=== PATIENT | female | born 1975 | race Caucasian/White ===

== ENCOUNTER 2017-08-19 19:50 | Emergency (ER) | payer BC, SELFPAY ==
[2017-08-19 19:51] VITALS: BP 115/75; PULSE 100; RESP 16; TEMP 37; O2SAT 100; BMI 18.3
== END 2017-08-19 20:53 | disposition left against medical advice (07) ==
LOC: ER 20:03
PROVIDERS: Emergency Provider Emergency Medicine; Family Provider Internal Medicine Adolescent Medicine; PCP Internal Medicine Adolescent Medicine
DX: Z53.29 Procedure and treatment not carried out because of patient's decision for other reasons (principal)
CPT/HCPCS: 99211; 99282

== ENCOUNTER → 2018-04-23 14:46 | Outpatient (CLI) | payer MEDICAID, SELFPAY ==
--- NOTE | 2018-04-23 14:52 | MR_ITS ---
MR lumbar spine wo con HISTORY: Multiple sclerosis, urinary incontinence, inability to flex the left knee ITS.REASON: MS ORDERING PHYSICIAN: Joaquim Bonilla MD PATIENT AGE: 43 years Comparison: None TECHNIQUE: Standard multiplanar multiecho sequences are performed without contrast. 3-D MIP and myelographic images are also rendered and reviewed. Sagittal FLAIR images are also performed FINDINGS: There is normal alignment. The spinal cord ends at the T12-L1 level. There is slight decrease in the disc spaces from T11 to L2 with some minimal endplate irregularity. L2-L3: Unremarkable. L3-L4: Unremarkable. L4-L5: Minimal bulging disc with mild facet and ligamentum flavum hypertrophy with mild bilateral foraminal narrowing. L5-S1: Unremarkable. The cauda equina has an unremarkable appearance. No demyelinating plaques evident at the cauda equina. Incidental note made of a 2 cm right renal cyst. IMPRESSION: 1. Minimal bulging disc at L4-5 with mild facet and ligamentum flavum hypertrophy with mild bilateral foraminal narrowing. 2. Minimal degenerative changes lower thoracic spine. 3. Otherwise negative MRI of the lumbar spine
--- NOTE | 2018-04-23 14:52 | MR_ITS ---
MR head/brain wo con HISTORY: Multiple sclerosis, headache and dizziness ITS.REASON: MS ORDERING PHYSICIAN: Joaquim Bonilla MD PATIENT AGE: 43 years Comparison: 10/23/2014 TECHNIQUE: Standard multiplanar multiecho sequences are performed without contrast. FINDINGS: No midline shift, mass effect, intracranial hemorrhage, or hydrocephalus is evident. The cerebellopontine angles, cerebellum, and brainstem are unremarkable. No evidence of acute infarction. There is mild generalized atrophy and mild prominence of the ventricles which may be due to underlying volume loss. There are numerous periventricular and subcortical T2 white matter hyperintensities. History is given of multiple sclerosis which could certainly cause this finding. 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 There are some scattered T2 white matter hyperintensities within the basal ganglia. The T2 white matter hyperintensities did NOT demonstrate any restricted diffusion. There are some scattered areas of increased periventricular signal on the diffusion weighted images but is felt to represent T2 shine through not demonstrating hypointensity on the ADC images. The pituitary and optic chiasm are unremarkable. No mastoid effusion or sinus air-fluid level. IMPRESSION: 1. There is mild diffuse atrophy with ventriculomegaly consistent with the underlying volume loss. 2. Extensive periventricular and subcortical T2 white matter hyperintensities in keeping with patient's history of multiple sclerosis. The differential diagnosis would include extensive ischemic gliotic change from microvascular disease. There are T2 hyperintensities within the basal ganglia which could be due to ischemic gliotic changes well. 3. Severe thinning of the corpus callosum
--- NOTE | 2018-04-23 14:52 | MR_ITS ---
MR cervical spine wo con, MR 3-d myelogram/MRCP HISTORY: Multiple sclerosis, lower extremity issues, urinary incontinence ORDERING PHYSICIAN: Joaquim Bonilla MD PATIENT AGE: 43 years Comparison: None TECHNIQUE: Standard multiplanar multiecho sequences are performed without contrast. 3-D MIP and myelographic images are also rendered and reviewed sagittal FLAIR images were also performed FINDINGS: There is mild degree of motion artifact which does somewhat obscure fine detail. There was a question of some increase T2 signal within the spinal cord on the STIR images. The patient was asked to come back for additional imaging. FLAIR images were performed at that time and show unremarkable signal intensity of the cervical cord. The FLAIR images are more sensitive for demyelinating plaques. There is normal alignment. The craniocervical junction has an unremarkable appearance. C2-C3, C3-C4, C4-C5, have an unremarkable appearance. C5-C6: Minimal central disc protrusion versus averaging from prominent posterior longitudinal ligament. No mass effect or impingement. No evidence of canal stenosis. C6-C7: Small spur broad-based central disc protrusion without impingement. C7-T1: Unremarkable. IMPRESSION: 1. Small central disc protrusion at C6-C7 without impingement. 2. Otherwise negative MRI of the cervical spine. 3. No demyelinating plaques apparent
== END ==
PROVIDERS: Family Provider Internal Medicine Adolescent Medicine; PCP Internal Medicine Adolescent Medicine; Visit Provider Internal Medicine Adolescent Medicine
DX: G35 Multiple sclerosis (principal); G43.009 Migraine without aura, not intractable, without status migrainosus
CPT/HCPCS: 70551; 72141; 72148; 76376

== ENCOUNTER → 2018-04-26 13:50 | Outpatient (CLI) | payer MEDICAID, SELFPAY | PROVIDERS: Family Provider Internal Medicine Adolescent Medicine; PCP Internal Medicine Adolescent Medicine; Visit Provider Internal Medicine Adolescent Medicine | DX: G35 Multiple sclerosis (principal) ==

== ENCOUNTER → 2018-09-27 13:37 | Outpatient (CLI) | payer MEDICAID, SELFPAY ==
[2018-09-27 14:17] LABS: Basophils % 0.4 % (0.1-2.0); Eosinophils # 0.2 K/mm3 (0.0-0.4); Eosinophils % 2.3 % (0.1-12.0); Hematocrit 43.4 % (37.0-47.0); Hemoglobin 14.2 g/dL (12.2-16.2); Lymphocytes # 2.7 K/mm3 (0.7-4.5); Lymphocytes % 32.2 % (10-50); Mean Corpuscular HGB Conc 32.6 g/dL (31.8-35.4); Mean Corpuscular Hemoglobin 30.7 pg (27.0-31.2); Mean Corpuscular Volume 94.2 fl (81-99); Mean Platelet Volume 6.6 fl (7.4-10.4); Monocytes # 0.3 K/mm3 (0.1-1.0); Monocytes % 3.5 % (1.7-9.3); Neutrophils # 5.2 K/mm3 (1.8-7.8); Neutrophils % 61.6 % (37.0-80.0); Platelet Count 320 K/mm3 (142-424); Red Blood Count 4.61 M/mm3 (4.20-5.40); Red Cell Distribution Width 12.8 % (11.5-17.5); White Blood Count 8.4 K/mm3 (4.8-10.8)
[2018-09-27 14:50] LABS: Alanine Aminotransferase 20 U/L (12-78); Albumin/Globulin Ratio 1.2 (1.1-1.8); Alkaline Phosphatase 80 U/L (46-116); Anion Gap 12.3 mEq/L (5-15); Aspartate Amino Transferase 8 U/L (15-37); Bilirubin,Total 0.4 mg/dL (0.2-1.0); Blood Urea Nitrogen 9 mg/dL (7-18); Calcium 9.4 mg/dL (8.5-10.1); Carbon Dioxide 29 mmol/L (21.0-32.0); Chloride 105 mmol/L (98-107); Creatinine,Serum 0.59 mg/dL (0.55-1.02); Estimated Glomerular Filt Rate 112 ml/min (>60); GFR (African American) 136 ML/MIN (>60); Globulin 3.4 gm/dl (1.3-3.2); Glucose 91 mg/dL (74-106); Potassium 4.3 mmoL/L (3.5-5.1); Sodium 142 mmol/L (136-145); Thyroid Stimulating Hormone 0.44 uIU/ml (0.358-3.740); Total Protein,Serum 7.4 gm/dL (6.4-8.2)
== END ==
PROVIDERS: Visit Provider Specialist
DX: G35 Multiple sclerosis (principal)
CPT/HCPCS: 36415; 80053; 84443; 85025

== ENCOUNTER → 2018-10-10 13:14 | Outpatient (CLI) | payer MEDICAID, SELFPAY ==
--- NOTE | 2018-10-10 13:16 | MR_ITS ---
MR thoracic spine wo con Ordering Physician: Nereida Zhang MD Patient Age: 43 years: Female HISTORY: ITS.REASON: multiple sclerosis, headache HISTORY of MS low back pain thoracic pain left side. Headache left leg weakness. TECHNIQUE: Sagittal T1, T2 and STIR entire thoracic spine.. Axial T1 and T2 imaging through portions of the T-spine COMPARISON :MRI lumbar spine April 2018 FINDINGS The more sensitive STIR images performed but show no discrete lesions within the thoracic cord. Thoracic cord is modest volume but but normal size overall with no lesions evident on these images. Generous volume thoracic osseous spinal canal The thoracic vertebral bodies are intact and disc spaces are overall well-maintained. No disc protrusion. No remarkable spondylosis. The neural foramen widely patent bilaterally. No paraspinal mass. Aorta normal caliber Limited axial views Upper abdomen reveal a similar to previous April 2018 MR lumbar spine a 2.2 cm cystprobable 2 cm left ovarian cyst here pelvis on the initial overview associate professor of engineering image Also note Probable 2 cm left ovarian cyst ( Less likely bladder diverticulum) here pelvis basin on the initial overview associate professor of engineering image IMPRESSION: 1.. Thoracic spine and thoracic cord appears intact, within normal limits. No significant findings thoracic spine. 2.. Incidental observations include: ... A 2.2 cm right renal cyst ... Probable 2 cm left ovarian cyst here pelvis on the initial overview associate professor of engineering image
== END ==
PROVIDERS: PCP Internal Medicine Adolescent Medicine; Visit Provider Specialist
DX: G35 Multiple sclerosis (principal); M54.2 Cervicalgia; R51 Headache
CPT/HCPCS: 72146

== ENCOUNTER 2019-03-26 09:00 | Outpatient (CLI) | payer MEDICAID, SELFPAY ==
[2019-03-26 09:00] VITALS: BP 107/70; PULSE 64; RESP 20; O2SAT 97
== END 2019-03-26 09:17 | disposition home or self-care (01) ==
LOC: INF 09:32
PROVIDERS: Visit Provider Emergency Medicine
DX: G35 Multiple sclerosis (principal)
CPT/HCPCS: 96374

== ENCOUNTER 2019-03-27 09:55 | Outpatient (CLI) | payer MEDICAID, SELFPAY ==
[2019-03-27 10:10] VITALS: BP 104/68; PULSE 69; RESP 18; O2SAT 97
== END 2019-03-27 10:25 | disposition home or self-care (01) ==
LOC: INF 09:57
PROVIDERS: Visit Provider Emergency Medicine
DX: G35 Multiple sclerosis (principal)
CPT/HCPCS: 96374

== ENCOUNTER → 2019-04-15 15:35 | Outpatient (CLI) | payer MEDICAID, SELFPAY ==
--- NOTE | 2019-04-15 15:39 | MM_ITS ---
PROCEDURE: MM DIG SCREENING MAMM BI W/CAD CLINICAL INDICATION: SCREENING There is a history of breast cancer in the patient's paternal grandmother. COMPARISON: DMDBAV DIG MAMM-DX NAVA W ADD VIEWS from 03/20/2016 TECHNIQUE: Standard CC and MLO images were obtained. R2 CAD reviewed. FINDINGS: Prominent somewhat heterogenic fibroglandular densities are seen in both breasts. There is no suspicious lesion in either breast and no suspicious microcalcifications. IMPRESSION: Moderately dense heterogenic parenchymal pattern with no suspicious lesions seen BI-RAD Category: 1 Negative FOLLOW-UP: 1YR 1 Year Follow-up (A letter has been sent to the patient regarding results of the study.) Dictated by: Dr. Romario Whiting MD 04/20/2019 10:[address] Romario Whiting MD in [place] 04/20/2019 10:53
== END ==
PROVIDERS: PCP Internal Medicine Adolescent Medicine; Visit Provider Internal Medicine Adolescent Medicine
DX: Z12.31 Encounter for screening mammogram for malignant neoplasm of breast (principal)
CPT/HCPCS: 77067

== ENCOUNTER 2020-01-19 15:55 | Emergency (ER) | payer MEDICAID, SELFPAY ==
--- NOTE | 2020-01-19 16:17 | HMH.EDUTC ---
[facility] [place] Disposition Clinical Impression: Multiple sclerosis UTI (urinary tract infection) Qualifiers: Urinary tract infection type: site unspecified Hematuria presence: with hematuria Qualified Code(s): N39.0 - Urinary tract infection, site not specified Disposition: Home, Self-Care Condition on Discharge: Good Instructions: Urinary Tract Infection Additional Instructions: Drink plenty of fluids. Take tylenol or ibuprofen for pain or fever. Take the medications as directed. Follow up with your regular doctor. GO TO THE ER FOR ANY WORSENING SYMPTOMS Prescriptions: Sulfamethoxazole/Trimethoprim [Bactrim DS tablet] 1 each PO BID 7 Days #14 tab Transmission Status: Received by [facility] Referrals: Tai Fragoso MD [Primary Care Provider] - Time of Disposition: 16:41 Medical Decision Making - Medical Records Medical records reviewed: No: I reviewed the patient's medical records. - Arpan Inquiry Pt receiving controlled substance: No Vital Signs: 01/19/20 16:19 01/19/20 16:43 Temperature 97.7 F 97.7 F Temperature Source Oral Pulse Rate 79 Pulse Rate [Right Brachial] 79 Respiratory Rate 21 21 Blood Pressure 115/71 Blood Pressure [Right Arm] 115/71 Blood Pressure Mean [Right Arm] 85 Blood Pressure Source [Right Arm] Automatic Cuff Blood Pressure Position [Right Arm] Sitting 02 Sat by Pulse Oximetry 98 Oxygen Delivery Method Room Air - Lab Data Lab results reviewed: Yes: I reviewed the patient's lab results. Lab Results 01/19/20 16:23: Urine Color Yellow, Urine Appearance Cloudy, Urine pH 7.0, Ur Specific [place] 1.020, Urine Protein Negative, Urine Glucose (UA) Negative, Urine Ketones Negative, Urine Blood Trace, Urine Nitrate Negative, Urine Bilirubin Negative, Urine Urobilinogen 1, Ur Leukocyte Esterase Trace Orders (Tests/Meds): ED MEDICATIONS Discontinued Medications Generic Name Dose Route Start Last Admin Trade Name Freq PRN Reason Stop Dose Admin Ceftriaxone Sodium 1 gm 01/19/20 16:28 01/19/20 16:40 Rocephin 1gm Vial IM 01/19/20 16:29 1 gm ONCE ONE Administration Protocol Lidocaine HCl 0 ml 01/19/20 16:28 01/19/20 16:40 Lidocaine 1% 10ml Mdv IM 01/19/20 16:29 2.1 ml ONCE ONE Administration ORDERS Category Date Time Status Urine Culture Stat Micro 01/19/20 16:05 Received [facility] [place] HPI - General Stated complaint: Strong smelling urine Time Seen by Provider: 01/19/20 16:21 - History of Present Illness Provider Complaint: She has a history of MS and she has trouble emptying her bladder. Over the past 1 day, she has noted that her urine has been getting darker and it has a foul odor. In the past, she has became septic for a UTI and had to be transferred from this hospital to . She denies any fever or chills. She denies any back pain. Her main symptoms is that her urine is dark and foul smelling. - Related Data Home Medications Medication Instructions Recorded Confirmed Glatiramer Acetate 40 mg SQ .COMPLEX 03/27/19 01/19/20 Previous Rx's Medication Instructions Recorded Sulfamethoxazole/Trimethoprim 1 each PO BID 7 Days #14 tab 01/19/20 [Bactrim DS tablet] Allergies Allergy/AdvReac Type Severity Reaction Status Date / Time calcium [CALCIUM] Allergy Unknown Verified 10/22/19 13:32 latex [LATEX] Allergy Unknown Verified 10/22/19 13:32 [facility] History - Hepatitis A Screen Attestation statement:: This patient has been screened for Hepatitis A risk factors. I have reviewed the patient's past medical history: Yes Medical History: Reports:: Migraine Denies:: Cancer, Diabetes Mellitus Type 1, Diabetes Mellitus Type 2, MRSA, Seizures Other Medical History: Reports: Other Comment: Multiple Sclerosis- dx 2002 Other Surgeries: Yes: , Hysterectomy-Partial, Other Amputation: No Fractures: No - Social History Smoking Status: Current every day smoker Tobacco Type: cigarettes #
[2020-01-19 16:19] VITALS: BP 115/71; PULSE 79; RESP 21; TEMP 36.5; O2SAT 98; BMI 21.1
[2020-01-19 16:25] LABS: Apearance,Urine Cloudy (Clear); Bilirubin,Urine Negative (Negative); Blood, Urine Trace (Negative); Color,Urine Yellow (Yellow); Glucose,Urine (UA) Negative (Negative); Ketones,Urine Negative (Negative); Protein,Urine Negative (Negative)
[2020-01-19 16:26] LABS: UTC Leukocyte Esterase,Urine Trace (Negative); UTC Nitrate,Urine Negative (Negative); Urobilinogen,Urine 1 EU/dl (0.2)
[2020-01-19 16:43] VITALS: BP 115/71; PULSE 79; RESP 21; TEMP 36.5; O2SAT 98
== END 2020-01-19 16:49 | disposition home or self-care (01) ==
PROVIDERS: Emergency Provider Nurse Practitioner Family; PCP Internal Medicine Adolescent Medicine
DX: G35 Multiple sclerosis (principal); N39.0 Urinary tract infection, site not specified; G43.709 Chronic migraine without aura, not intractable, without status migrainosus; F17.210 Nicotine dependence, cigarettes, uncomplicated; Z90.79 Acquired absence of other genital organ(s); Z91.040 Latex allergy status
CPT/HCPCS: 81003; 87086; 87088; 87186; 96372; 99202

== ENCOUNTER → 2020-02-09 12:51 | Outpatient (CLI) | payer MEDICAID, SELFPAY ==
[2020-02-09 14:33] LABS: Alanine Aminotransferase 16 U/L (12-78); Albumin Level 4.3 g/dl (3.5-5.0); Albumin/Globulin Ratio 1.3 (1.1-1.8); Alkaline Phosphatase 88 U/L (38-126); Anion Gap 10.2 mEq/L (5-15); Aspartate Amino Transferase 27 U/L (14-36); Bilirubin,Total 0.4 mg/dl (0.2-1.3); Blood Urea Nitrogen 14 mg/dl (7-17); Calcium 9.4 mg/dl (8.4-10.2); Carbon Dioxide 29 mmol/L (22.0-30.0); Chloride 102 mmol/L (98-107); Estimated Glomerular Filt Rate 109 ml/min (>60); GFR (African American) 132 ML/MIN (>60); Globulin 3.2 g/dL (1.3-3.2); Glucose 87 mg/dl (74-100); Potassium 4.2 mmoL/L (3.5-5.1); Sodium 137 mmol/L (136-145); Total Protein,Serum 7.5 g/dl (6.3-8.2)
== END ==
PROVIDERS: Visit Provider Psychiatry & Neurology Neurology
DX: G35 Multiple sclerosis (principal)
CPT/HCPCS: 36415; 80053

== ENCOUNTER → 2020-03-24 09:09 | Outpatient (CLI) | payer MEDICAID, SELFPAY ==
--- NOTE | 2020-03-24 09:12 | MR_ITS ---
PROCEDURE: MR CERVICAL SPINE WO/W CON CLINICAL INDICATION: MULTIPLE SCLEROSIS Follow-up multiple sclerosis. LT SIDED NECK PAIN. LT ARM PAIN, NUMBNESS, AND TINGLING. [id number]. NO INJURY. COMPARISON: MR SPCERVWO MR cervical spine wo con from 04/23/2018 TECHNIQUE: Standard multiplanar multiecho sequences are performed without contrast. 3-D MIP and myelographic images are also rendered and reviewed FINDINGS: There is normal alignment. The craniocervical junction has an unremarkable appearance. There is reversal of the cervical lordosis at the C6-C7 level. C2-C3: Unremarkable. C3-C4: Unremarkable. C4-C5: Unremarkable. C5-C6: Minimal central disc protrusion versus mildly prominent posterior longitudinal ligament. C6-C7: There is degenerative disc disease with a medium-sized central disc protrusion/herniation with some minimal extrusion both superiorly and inferiorly. This is causing moderate compression upon the central aspect of the cord with canal stenosis. This is very slightly eccentric toward the right and has developed since the previous exam C7-T1: Unremarkable. The spinal cord itself has unremarkable signal intensity with no enhancing lesions apparent. There is some enhancement around the herniated disc consistent with some underlying inflammatory changes. This is best demonstrated on the sagittal post enhanced images. IMPRESSION: Medium-sized central disc herniation at C6-C7 very slightly eccentric toward the right causing moderate compression upon the central aspect of the cord with reversal of the cervical lordosis Minimal central disc protrusion at C5-C6 versus prominent posterior longitudinal ligament without impingement. Dictated by: Angel Meza MD 03/25/2020 12:13 Angel Meza MD in [place] 03/25/2020 12:13
--- NOTE | 2020-03-24 09:12 | MR_ITS ---
PROCEDURE: MR HEAD/BRAIN WO/W CON CLINICAL INDICATION: MULTIPLE SCLEROSIS, follow-up multiple sclerosis COMPARISON: MR BRAINWO MR head/brain wo con from 04/23/2018 MR MR CERVICAL SPINE WO/W CON from 03/24/2020 TECHNIQUE: Routine multiplanar multi echo sequences are performed without and with gadolinium enhancement.F/U MS. 10ML PROHANCE GIVEN. LOT: [id number] EXP: JAN 2022. PRIOR MR 04-23-18 FINDINGS: There is generalized atrophy. There is mild ventriculomegaly consistent with ex vacuo dilatation. There is diffuse periventricular and subcortical T2 white matter hyperintensities noted. For the most part this is not significantly changed. There is some increase in the white matter signal intensity in the medial aspect of the right temporal lobe in the subependymal region best detected on series 6, image 13. There is no evidence of acute infarction. No enhancing lesions are evident. The cerebellopontine angles cerebellum and mid brain have an unremarkable appearance. The pituitary and optic chiasm and craniocervical junction have an unremarkable appearance. There is marked thinning of the corpus callosum similar to the previous exam. No mastoid effusion or sinus air-fluid level. IMPRESSION: 1. Diffuse atrophy with ventriculomegaly not significantly changed. 2. Extensive periventricular and subcortical T2 white matter hyperintense lesions in keeping with patient's history of multiple sclerosis. One area is slightly more prominent compared to the previous exam along the medial aspect of the right temporal lobe in the perisylvian region. This area does not enhance. Severe periventricular ischemic gliotic change is included in the differential diagnosis. Dictated by: Angel Meza MD 03/30/2020 18:21 Angel Meza MD in [place] 03/30/2020 18:21
== END ==
PROVIDERS: PCP Internal Medicine Adolescent Medicine; Visit Provider Psychiatry & Neurology Neurology
DX: G35 Multiple sclerosis (principal)
CPT/HCPCS: 70553; 72156; 76376; A9576

== ENCOUNTER 2020-06-08 20:59 | Emergency (ER) | payer MEDICAID, SELFPAY ==
[2020-06-08 21:00] VITALS: BP 116/71; PULSE 85; RESP 16; TEMP 36.9; O2SAT 100; BMI 20.5
--- NOTE | 2020-06-08 21:44 | HMH.EDSKAF ---
ED Disposition Clinical Impression: Dermatitis Disposition: Home, Self-Care Condition on Discharge: Good Instructions: DI for Itching Additional Instructions: use meds and see pcp for follow up Prescriptions: predniSONE [Prednisone 20mg Tab] 20 mg PO BID #10 tab Transmission Status: Pending to [facility] hydrOXYzine pamoate [Vistaril 25mg capsule] 25 mg PO Q8H PRN #21 cap PRN Reason: Itching Transmission Status: Pending to [facility] Referrals: Tai Fragoso MD [Primary Care Provider] - - Critical Care Critical Care Time: No Attestation: On 06/08/20, the high probability of a clinically significant, sudden or life threatening deterioration of the following system(s) required my full and direct attention, intervention and personal management. The time I documented below is in addition to time spent performing reported procedures but includes the following listed in this critical care notation. Medical Decision Making - Medical Records Medical records reviewed: Yes: I reviewed the patient's medical records. - Arpan Inquiry Pt receiving controlled substance: No Vital Signs: 06/08/20 21:00 Temperature 98.5 F Temperature Source Oral Pulse Rate [Left Radial] 85 Respiratory Rate 16 Blood Pressure [Right Arm] 116/71 Blood Pressure Mean [Right Arm] 86 Blood Pressure Source [Right Arm] Automatic Cuff Blood Pressure Position [Right Arm] Sitting 02 Sat by Pulse Oximetry 100 Oxygen Delivery Method Room Air Skin/Abscess/FB HPI - General Chief complaint: Skin/Abscess/Foreign Body Stated complaint: rash on stomach Time Seen by Provider: 06/08/20 21:20 Mode of Arrival: Ambulatory Source of Information: Patient, Medical Record Limitations: No Limitations Description of Symptoms (Recalled from ER Triage Doc. by RN): pt complains of a rash on her trunk for the last 3 days that itches - History of Present Illness HPI narrative: diffuse rash to trunk and ext over the last 3 days with itching and no fever or mm lesions complaint: rash Onset (ago): day(s) Location: generalized Severity: moderate Quality: pruritic Associated symptoms: denies other symptoms Treatments prior to arrival: none - Related Data Home Medications Medication Instructions Recorded Confirmed Glatiramer Acetate 40 mg SQ .COMPLEX 03/27/19 01/19/20 Previous Rx's Medication Instructions Recorded Sulfamethoxazole/Trimethoprim 1 each PO BID 7 Days #14 tab 01/19/20 [Bactrim DS tablet] hydrOXYzine pamoate [Vistaril 25mg 25 mg PO Q8H PRN #21 cap 06/08/20 capsule] predniSONE [Prednisone 20mg 20 mg PO BID #10 tab 06/08/20 Tab] Allergies Allergy/AdvReac Type Severity Reaction Status Date / Time calcium [CALCIUM] Allergy Unknown Verified 10/22/19 13:32 latex [LATEX] Allergy Unknown Verified 10/22/19 13:32 [facility] History - Hepatitis A Screen Drug use history?: No High risk sexual behaviors?: No History of sexually transmitted infection?: No Currently employed?: No Childcare worker?: No Do you have indoor plumbing?: Yes Do you have electricity?: Yes Attestation statement:: This patient has been screened for Hepatitis A risk factors. I have reviewed the patient's past medical history: Yes Medical History: Reports:: Migraine Denies:: Cancer, Diabetes Mellitus Type 1, Diabetes Mellitus Type 2, MRSA, Seizures Other Medical History: Reports: Other Comment: Multiple Sclerosis- dx 2002 Other Surgeries: Yes: , Hysterectomy-Partial, Other Amputation: No Fractures: No - Social History Smoking Status: Current every day smoker Tobacco Type: cigarettes # Packs/Day (cigarettes): 1 #Yrs smoked (if former smoker): 20 Alcohol Intake: never Alcohol Intake Frequency:: other Substance Use Type: denies use Occupational Status: unemployed Housing: house Household Members: spouse Family Hx:: Non-contributory ROS Obtained: Yes All systems reviewed & no additional complaints -
[2020-06-08 22:07] VITALS: BP 120/73; PULSE 81; RESP 16; TEMP 36.9; O2SAT 100
== END 2020-06-08 22:09 | disposition home or self-care (01) ==
PROVIDERS: Emergency Provider Emergency Medicine; PCP Internal Medicine Adolescent Medicine
DX: L30.9 Dermatitis, unspecified (principal); G43.709 Chronic migraine without aura, not intractable, without status migrainosus; F17.210 Nicotine dependence, cigarettes, uncomplicated
CPT/HCPCS: 99281

== ENCOUNTER 2020-11-13 15:10 | Emergency (ER) | payer BC, SELFPAY ==
[2020-11-13] VITALS (16 sets, daily range): BP systolic 108–141; BP diastolic 45–82; PULSE 100–121; RESP 6–30; TEMP 36.9–37.7; O2SAT 30–100; BMI 188793.3; BMI 18.8
--- NOTE | 2020-11-13 15:21 | XR_ITS ---
PROCEDURE: XR CHEST PORTABLE CLINICAL HISTORY: post intubation COMPARISON: No exams were available for comparison FINDINGS: 1526 hours. The endotracheal tube tip is in good position 3.8 cm above the abraham. NG tube tip in the region of the body of the stomach along the greater curvature. The lung apices are clipped on the study. Suggest repeating exam when feasible to include the lung apices. Calcified granuloma is present in the right lower lobe. Probable nipple artifact lower lung zone on the left. Unremarkable cardiovascular structures. There is mild gaseous distention of the stomach. IMPRESSION: Nasogastric tube and endotracheal tube are in good position. Mild gaseous distention of the stomach. Suggest repeating exam when feasible to include the lung apices. Dictated by: Angel Meza MD 11/13/2020 15:48 Angel Meza MD in [place] 11/13/2020 15:48
--- NOTE | 2020-11-13 15:33 | PC.NURSE ---
DR MARINA SPOKE WITH PHARMACY REGARDING VERSED DRIP. PHARMACY UNSURE OF VERSED DRIP CONCENTRATION. DR MARINA ORDERED VERSED DRIP 20MG/NS 100CC AT 10MG/60CC HR.
--- NOTE | 2020-11-13 15:34 | CT_ITS ---
PROCEDURE: CT HEAD/BRAIN WO CON CLINICAL INDICATION: seizures COMPARISON: CT HDWO CT HEAD W/O CONTRAST from 10/21/2014 TECHNIQUE: Axial images obtained. All CT scans at the facility use one or more dose reduction, viz: automated exposure control, ma/kV adjustment per patient size (including targeted exams where dose is matched to indication, i.e. head), or iterative reconstruction technique. FINDINGS: No midline shift intracranial hemorrhage or mass effect evident. There is mild prominence of the lateral ventricles and mild prominence of the 3rd ventricle raising the suspicion mild aqueductal stenosis. The ventricles are only slightly more prominent however compared to 10/21/2014. Low-density changes are present in the periventricular region suggesting microvascular changes. IMPRESSION: No acute intracranial hemorrhage or midline shift apparent. Mild prominence of the lateral ventricles and 3rd ventricle which may be seen with mild aqueductal stenosis. The ventricles are only slightly more prominent compared to the previous study. The ventricles are more prominent however than 1 would expect for the mild degree of atrophy. Nonemergent MRI without and with gadolinium may provide further evaluation. Dictated by: Angel Meza MD 11/13/2020 16:27 Angel Meza MD in [place] 11/13/2020 16:27
--- NOTE | 2020-11-13 16:10 | PC.NURSE ---
pt return from CT
[2020-11-13 16:20] LABS: Basophils # 0.3 K/mm3 (0-0.2); Basophils % 1.9 % (0.1-2.0); Hematocrit 41.9 % (37.0-47.0); Hemoglobin 13.5 g/dL (12.2-16.2); Lymphocytes # 2.1 K/mm3 (0.7-4.5); Lymphocytes % 16.5 % (10-50); Mean Corpuscular HGB Conc 32.2 g/dL (31.8-35.4); Mean Corpuscular Hemoglobin 30.3 pg (27.0-31.2); Mean Corpuscular Volume 94.3 fl (81-99); Monocytes % 7.8 % (1.7-9.3); Neutrophils # 9.3 K/mm3 (1.8-7.8); Neutrophils % 73.7 % (37.0-80.0); Platelet Count 506 K/mm3 (142-424); Red Blood Count 4.45 M/mm3 (4.20-5.40); Red Cell Distribution Width 12.7 % (11.5-17.5); White Blood Count 12.6 K/mm3 (4.8-10.8)
--- NOTE | 2020-11-13 16:23 | HMH.EDSEIZ ---
ED Disposition Clinical Impression: Status epilepticus Disposition: Admitted As Inpatient Condition on Discharge: Critical Instructions: DI for Seizure Disorder -- Adult, DI for Seizure (Not Epilepsy/Seizure Disorder), DI for Seizure Disorder -- Child Referrals: Tai Fragoso MD [Primary Care Provider] - - Critical Care Critical Care Time: Yes (30min) Attestation: On 11/13/20, the high probability of a clinically significant, sudden or life threatening deterioration of the following system(s) required my full and direct attention, intervention and personal management. The time I documented below is in addition to time spent performing reported procedures but includes the following listed in this critical care notation. Total Critical Care Time: 30 Vital system(s) involved:: Central Nervous System, Respiratory Failure My critical care processes included: Assessment & monitoring of V/S, Initial and Re-exams, Data Review/Interpretation, Coordinating Care, Medication Orders and management, Documentation Comment: Pt will be admitted to ICU while awaiting Neuro bed at [facility]. Medical Decision Making - Medical Records Medical records reviewed: Yes: I reviewed the patient's medical records. - Arpan Inquiry Pt receiving controlled substance: No Vital Signs: 11/13/20 15:11 11/13/20 15:30 Temperature 99.9 F H Temperature Source Rectal Pulse Rate [Radial] 121 H Respiratory Rate 30 H 6 L Blood Pressure [Right Arm] 124/79 Blood Pressure Mean [Right Arm] 94 Blood Pressure Position [Right Arm] Sitting 02 Sat by Pulse Oximetry 100 100 Oxygen Delivery Method Room Air Mechanical Ventilation Oxygen Flow Rate (LPM) 30 - Lab Data Lab results reviewed: Yes: I reviewed the patient's lab results. Lab Results 11/13/20 15:20: WBC 12.6 H, RBC 4.45, Hgb 13.5, Hct 41.9, MCV 94.3, MCH 30.3, MCHC 32.2, RDW 12.7, Plt Count 506 H, MPV 8.0, Neut % (Auto) 73.7, Lymph % (Auto) 16.5, [place] % (Auto) 7.8, Eos % (Auto) 0.0 L, Baso % (Auto) 1.9, Neut # (Auto) 9.3 H, Lymph # (Auto) 2.1, [place] # (Auto) 1.0, Eos # (Auto) 0.0, Baso # (Auto) 0.3 H 11/13/20 15:20: Sodium 139, Potassium 4.2, Chloride 101, Carbon Dioxide 22, Anion Gap 20.2 H, BUN 7, Creatinine 0.60, Estimated Creat Clear 95, Estimated GFR 109, Est GFR ( Amer) 132, Glucose 150 H, Calcium 8.8, Magnesium 2.0, Total Bilirubin 0.7, AST 38 H, ALT 25, Alkaline Phosphatase 93, Total Protein 7.4, Albumin 4.1, Globulin 3.3 H, Albumin/Globulin Ratio 1.2 11/13/20 15:20: Urine Opiates Screen Negative, Urine Methadone Screen Negative, Ur Barbituates Screen Negative, Ur Phencyclidine Scrn Negative, Ur Amphetamines Screen Negative, U Benzodiazepines Scrn Negative, Urine Cocaine Screen Negative, U Marijuana (THC) Screen Negative 11/13/20 15:20: Phenytoin < 3.0 L 11/13/20 15:20: Urine Color Yellow, Urine Appearance Cloudy, Urine pH 7.5, Ur Specific [place] 1.010, Urine Protein Trace, Urine Glucose (UA) Negative, Urine Ketones Negative, Urine Blood 3+, Urine Nitrate Negative, Urine Bilirubin Negative, Urine Urobilinogen 0.2, Ur Leukocyte Esterase 2+ A, Urine RBC 5-10, Urine WBC 10-20, Ur Squamous Epith Cells Occasional, Amorphous Sediment 2+, Urine Bacteria 1+ 11/13/20 15:20: Acetaminophen < 10 L 11/13/20 15:20: Plasma/Serum Alcohol < 10 11/13/20 16:35: Specimen Source L/r, O2 % 40, ABG pH 7.49 H, ABG pCO2 29.3 L, ABG pO2 149.2 H, ABG HCO3 21.9 L, ABG Total CO2 22.8 L, ABG O2 Saturation 99, ABG Base Excess -1.4, Angel Test Y, Vent Rate 16, Tidal Volume 400, PEEP 5 Result diagrams: 11/13/20 15:20 11/13/20 15:20 Orders (Tests/Meds): ED MEDICATIONS Generic Name Dose Route Start Last Admin Trade Name Freq PRN Reason Stop Dose Admin Sodium Chloride 1,000 mls @ 999 mls/hr 11/13/20 16:45 11/13/20 15:12 Sod Chlor 0.9% 1000ml Bag IV 11/13/20 17:45 999 mls/hr .Q1H1M EVERARDO Administration Midazolam HCl 50 mg/ Sodium 50 mls @ 0.998 mls/hr 11/13/20 17:15 Chloride IV 12/13/20 17:14 .
[2020-11-13 16:25] LABS: Alanine Aminotransferase 25 U/L (12-78); Albumin Level 4.1 g/dl (3.5-5.0); Albumin/Globulin Ratio 1.2 (1.1-1.8); Alkaline Phosphatase 93 U/L (38-126); Anion Gap 20.2 mEq/L (5-15); Aspartate Amino Transferase 38 U/L (14-36); Bilirubin,Total 0.7 mg/dl (0.2-1.3); Blood Urea Nitrogen 7 mg/dl (7-17); Calcium 8.8 mg/dl (8.4-10.2); Carbon Dioxide 22 mmol/L (22.0-30.0); Chloride 101 mmol/L (98-107); Creatinine Clearance Estimated 95 mL/min (50-200); Estimated Glomerular Filt Rate 109 ml/min (>60); GFR (African American) 132 ML/MIN (>60); Globulin 3.3 g/dL (1.3-3.2); Glucose 150 mg/dl (74-100); Potassium 4.2 mmoL/L (3.5-5.1); Sodium 139 mmol/L (136-145); Total Protein,Serum 7.4 g/dl (6.3-8.2)
[2020-11-13 16:30] LABS: Phenytoin (Dilantin) < 3.0 ug/ml (10-20)
[2020-11-13 16:31] LABS: Appearance,Urine CLOUDY (Clear); Bilirubin,Urine Negative (Negative); Blood, Urine 3+ (Negative); Color,Urine YELLOW (Yellow); Glucose,Urine (UA) Negative (Negative); Ketones,Urine Negative (Negative); Leukocyte Esterase,Urine 2+ (Negative); Microscopic, Urine URINE MICROSCOPIC (MICROSCOPIC); Nitrate,Urine Negative (Negative); PH,Urine 7.5 (5.0-8.5); Protein,Urine TRACE (Negative); Urobilinogen,Urine 0.2 EU/dl (0.2)
[2020-11-13 16:32] LABS: Benzodiazepines Screen,Urine Negative ng/ml (<200)
[2020-11-13 16:33] LABS: Amphetamine/Metha Screen,Urine Negative ng/ml (<1000); Barbiturates Screen,Urine Negative ng/ml (<200)
[2020-11-13 16:34] LABS: Cannabinoid Screen,Urine Negative ng/ml (<50)
[2020-11-13 16:35] LABS: Acetaminophen < 10 ug/ml (10-30); Cocaine Screen,Urine Negative ng/ml (<300); Ethyl Alcohol < 10 mg/dl (0-10); Methadone Screen,Urine Negative ng/ml (<300)
[2020-11-13 16:36] LABS: ABG Base Excess -1.4 mmol/L (-2.4-2.3); ABG HCO3 21.9 mmhg (22.0-26.0); ABG Oxygen Saturation 99 % (90-100); ABG PCO2 29.3 mmhg (35.0-45.0); ABG PH 7.49 mmol/L (7.35-7.45); ABG PO2 149.2 mmhg (80-100); ABG TCO2 22.8 mmhg (23-27)
[2020-11-13 16:36] LABS: Opiate Screen,Urine Negative ng/ml (<300)
[2020-11-13 16:37] LABS: Allen's Test Y; Oxygen 40 %; PEEP 5; Source L/R; Tidal Volume 400; Vent Rate 16
[2020-11-13 16:37] LABS: Phencyclidine Screen,Urine Negative ng/ml (<25)
[2020-11-13 16:38] LABS: Amorphous Sediment,Urine 2+ /lpf; Bacteria,Urine 1+ /lpf; Squamous Epithelial Cell,Urine Occasional #/hpf (0-5)
--- NOTE | 2020-11-13 17:01 | PC.NURSE ---
placed call to [facility], few calls ahead of us, they are to call back when Neuro is available
--- NOTE | 2020-11-13 17:12 | PC.NURSE ---
Dr Almanza talking to Dr Jimenes ER
--- NOTE | 2020-11-13 17:17 | PC.NURSE ---
[facility] has no med surg or icu beds at this time
--- NOTE | 2020-11-13 17:23 | PC.NURSE ---
[facility] does not have any beds and probably wont have any tonight
--- NOTE | 2020-11-13 17:24 | PC.NURSE ---
Dr Almanza speaking with neuro Dr Kalli Balderas at [facility]
--- NOTE | 2020-11-13 17:35 | PC.NURSE ---
Dr Almanza speaking with Dr Evans at [facility]
[2020-11-13 17:38] LABS: Adenovirus,PCR Not Detected (NotDetected); Bordetella Pertussis Not Detected (NotDetected); Chlamydophila Pneumoniae, PCR Not Detected (NotDetected); Coronavirus 19, PCR Not Detected (NotDetected); Coronavirus 229E Not Detected (NotDetected); Coronavirus NL63 Not Detected (NotDetected); Coronavirus OC43 Not Detected (NotDetected); Coronovirus HKU1,PCR Not Detected (NotDetected); Human Metapneumovirus Not Detected (NotDetected); Influenza A, PCR Not Detected (NotDetected); Influenza AH1, 2009 Not Detected (NotDetected); Influenza AH1, PCR Not Detected (NotDetected); Influenza AH3,PCR Not Detected (NotDetected); Influenza B, PCR Not Detected (NotDetected); Mycoplasma Pneumoniae, PCR Not Detected (NotDetected); Parainfluenza 1, PCR Not Detected (NotDetected); Parainfluenza 2, PCR Not Detected (NotDetected); Parainfluenza 3, PCR Not Detected (NotDetected); Parainfluenza 4, PCR Not Detected (NotDetected); Respiratory Syncytial Virus Not Detected (NotDetected); Rhinovirus/Enterovirus Not Detected (NotDetected)
--- NOTE | 2020-11-13 17:38 | PC.NURSE ---
Addendum entered by Crystal Quesada, EMT 11/13/20 19:01: Dr May accepted pt Original Note: Dr Evans accepted pt. awaiting bed placement, [facility] advised no beds available at this time, they will call when bed is available.
--- NOTE | 2020-11-13 17:43 | PC.NURSE ---
paged Dr Owens nurse practitioner per diem for Dr Fragoso
--- NOTE | 2020-11-13 18:00 | PC.NURSE ---
Dr Almanza spoke with Dr Owens supervisor electronics assembly for Dr Fragoso, admitting pt.
--- NOTE | 2020-11-13 18:39 | PC.NURSE ---
[facility] called with a bed assignment at this time.
[2020-11-23 12:34] LABS: Levetiracetam (Keppra) <1.0 ug/mL (10.0-40.0)
== END 2020-11-13 19:55 | disposition admitted as inpatient to this hospital (09) ==
PROVIDERS: Emergency Provider Emergency Medicine; PCP Internal Medicine Adolescent Medicine
DX: G40.901 Epilepsy, unspecified, not intractable, with status epilepticus (principal); G35 Multiple sclerosis; F17.210 Nicotine dependence, cigarettes, uncomplicated; Z91.040 Latex allergy status
CPT/HCPCS: 31500; 70450; 71045; 80053; 80177; 80185; 80305; 80329; 81001; 82803; 83735; 85025; 87070; 87086; 87088; 87186; 87205; 87581; 87633; 87798; 96365; 96367; 96375; 99285; J0330; J1953

== ENCOUNTER → 2021-01-13 15:02 | Outpatient (CLI) | payer BC, SELFPAY ==
[2021-01-13 15:49] LABS: Basophils # 0.1 K/mm3 (0-0.2); Basophils % 0.5 % (0.1-2.0); Eosinophils # 0.2 K/mm3 (0.0-0.4); Eosinophils % 1.5 % (0.1-12.0); Hematocrit 43.2 % (37.0-47.0); Hemoglobin 13.8 g/dL (12.2-16.2); Lymphocytes # 3.5 K/mm3 (0.7-4.5); Mean Corpuscular HGB Conc 31.9 g/dL (31.8-35.4); Mean Corpuscular Hemoglobin 29.8 pg (27.0-31.2); Mean Corpuscular Volume 93.3 fl (81-99); Mean Platelet Volume 6.7 fl (7.4-10.4); Monocytes # 0.4 K/mm3 (0.1-1.0); Monocytes % 4.2 % (1.7-9.3); Neutrophils # 6.1 K/mm3 (1.8-7.8); Neutrophils % 59.9 % (37.0-80.0); Platelet Count 319 K/mm3 (142-424); Red Blood Count 4.63 M/mm3 (4.20-5.40); Red Cell Distribution Width 13.3 % (11.5-17.5); White Blood Count 10.3 K/mm3 (4.8-10.8)
[2021-01-13 17:20] LABS: Alanine Aminotransferase 16 U/L (12-78); Albumin Level 4.7 g/dl (3.5-5.0); Albumin/Globulin Ratio 1.7 (1.1-1.8); Alkaline Phosphatase 67 U/L (38-126); Aspartate Amino Transferase 21 U/L (14-36); Bilirubin,Total 0.5 mg/dl (0.2-1.3); Blood Urea Nitrogen 13 mg/dl (7-17); Calcium 9.4 mg/dl (8.4-10.2); Carbon Dioxide 26 mmol/L (22.0-30.0); Chloride 105 mmol/L (98-107); Estimated Glomerular Filt Rate 135 ml/min (>60); GFR (African American) 163 ML/MIN (>60); Globulin 2.8 g/dL (1.3-3.2); Glucose 88 mg/dl (74-100); Magnesium 2.1 mg/dl (1.6-2.3); Sodium 140 mmol/L (136-145); Total Protein,Serum 7.5 g/dl (6.3-8.2)
[2021-01-18 13:04] LABS: Levetiracetam (Keppra) 4.7 ug/mL (10.0-40.0)
== END ==
PROVIDERS: Visit Provider Internal Medicine Adolescent Medicine
DX: G40.909 Epilepsy, unspecified, not intractable, without status epilepticus (principal)
CPT/HCPCS: 36415; 80053; 80177; 83735; 85025

== ENCOUNTER 2021-02-21 22:22 | Observation (INO) | payer BC, SELFPAY ==
[2021-02-21 22:41] VITALS: BMI 20.7
--- NOTE | 2021-02-21 22:44 | XR_ITS ---
PROCEDURE INFORMATION: Exam: XR Chest Exam date and time: 02/21/2021 10:44 PM Age: 46 years old Clinical indication: Other: Seizure; Additional info: Witnessed seizure TECHNIQUE: Imaging protocol: XR of the chest. Views: 1 view. COMPARISON: CR XR CHEST PORTABLE 11/13/2020 3:26 PM FINDINGS: Lungs: Probable calcified granulomas in the left upper lung and right lung base. The lungs are otherwise clear. Pleural spaces: Unremarkable. No pleural effusion. No pneumothorax. Heart/Mediastinum: Unremarkable. No cardiomegaly. Bones/joints: Unremarkable. IMPRESSION: No acute cardiopulmonary abnormality.
--- NOTE | 2021-02-21 22:44 | CT_ITS ---
PROCEDURE INFORMATION: Exam: CT Head Without Contrast Exam date and time: 02/21/2021 10:44 PM Age: 46 years old Clinical indication: Other: Seizure TECHNIQUE: Imaging protocol: Computed tomography of the head without contrast. Radiation optimization: All CT scans at this facility use at least one of these dose optimization techniques: automated exposure control; mA and/or kV adjustment per patient size (includes targeted exams where dose is matched to clinical indication); or iterative reconstruction. COMPARISON: CT HEAD/BRAIN WO CON 11/13/2020 3:57 PM FINDINGS: Brain: Age advanced atrophy and small vessel ischemic change which may be seen in chronic antiseizure medication use. No evidence of intracranial hemorrhage, mass effect, midline shift or extra-axial fluid collections. Midline structures are normal. Nguyễn-white matter differentiation is normal. Cerebral ventricles: No ventriculomegaly. Paranasal sinuses: Mucosal thickening in the ethmoid sinuses. Mastoid air cells: Visualized mastoid air cells are well aerated. Bones/joints: Unremarkable. No acute fracture. Soft tissues: Unremarkable. IMPRESSION: Stable head CT with no acute intracranial abnormalities.
[2021-02-21 22:45] VITALS: BP 116/74; PULSE 95; RESP 16; TEMP 36.4; O2SAT 96; BMI 20.4
[2021-02-21 22:48] LABS: Microscopic, Urine URINE MICROSCOPIC (MICROSCOPIC)
[2021-02-21 22:54] LABS: Appearance,Urine CLEAR (Clear); Bilirubin,Urine Negative (Negative); Blood, Urine 1+ (Negative); Color,Urine YELLOW (Yellow); Glucose,Urine (UA) Negative (Negative); Ketones,Urine Negative (Negative); Leukocyte Esterase,Urine 2+ (Negative); Nitrate,Urine POSITIVE (Negative); PH,Urine 8.5 (5.0-8.5); Protein,Urine 2+ (Negative); Specific Gravity, Urine 1.015 (1.005-1.030); Urobilinogen,Urine 0.2 EU/dl (0.2)
[2021-02-21 22:59] LABS: Chloride 102 mmol/L (98-107); Potassium 3.6 mmoL/L (3.5-5.1); Sodium 144 mmol/L (136-145)
[2021-02-21 23:01] LABS: Blood Urea Nitrogen 12 mg/dl (7-17); Creatinine Clearance Estimated 69 mL/min (50-200); Estimated Glomerular Filt Rate 78 ml/min (>60); GFR (African American) 94 ML/MIN (>60)
[2021-02-21 23:02] LABS: Alanine Aminotransferase 18 U/L (12-78); Albumin Level 5.2 g/dl (3.5-5.0); Albumin/Globulin Ratio 1.3 (1.1-1.8); Alkaline Phosphatase 129 U/L (38-126); Anion Gap 18.6 mEq/L (5-15); Aspartate Amino Transferase 25 U/L (14-36); Bilirubin,Total 0.3 mg/dl (0.2-1.3); Calcium 9.4 mg/dl (8.4-10.2); Carbon Dioxide 27 mmol/L (22.0-30.0); Globulin 4.1 g/dL (1.3-3.2); Glucose 79 mg/dl (74-100); Total Protein,Serum 9.3 g/dl (6.3-8.2)
[2021-02-21 23:06] LABS: Basophils # 0.1 K/mm3 (0-0.2); Eosinophils # 0.1 K/mm3 (0.0-0.4); Eosinophils % 0.6 % (0.1-12.0); Hematocrit 46.4 % (37.0-47.0); Hemoglobin 15.4 g/dL (12.2-16.2); Lymphocytes # 2.8 K/mm3 (0.7-4.5); Lymphocytes % 28.6 % (10-50); Mean Corpuscular HGB Conc 33.2 g/dL (31.8-35.4); Mean Corpuscular Hemoglobin 30.5 pg (27.0-31.2); Mean Corpuscular Volume 91.8 fl (81-99); Mean Platelet Volume 7.4 fl (7.4-10.4); Monocytes # 0.3 K/mm3 (0.1-1.0); Monocytes % 3.5 % (1.7-9.3); Neutrophils # 6.4 K/mm3 (1.8-7.8); Neutrophils % 66.3 % (37.0-80.0); Platelet Count 524 K/mm3 (142-424); Red Blood Count 5.05 M/mm3 (4.20-5.40); Red Cell Distribution Width 12.9 % (11.5-17.5); White Blood Count 9.7 K/mm3 (4.8-10.8)
[2021-02-21 23:14] LABS: Calcium Oxalate Crystals,Urine 1+ /lpf; Triple Phosphate Crystal,Urine 1+ /lpf
[2021-02-21 23:15] LABS: Bacteria,Urine 3+ /lpf
[2021-02-21 23:18] LABS: Acetaminophen < 10 ug/ml (10-30); Ethyl Alcohol < 10 mg/dl (0-10); Salicylate < 1.0 mg/dL (2.0-20.0)
[2021-02-21 23:20] LABS: Lactic Acid 4.3 mmol/L (0.7-2.1)
--- NOTE | 2021-02-21 23:24 | PC.NURSE ---
Critical lactic reported to MD Adriana at this time of 4.3
[2021-02-21 23:40] LABS: Procalcitonin 0.043 ng/mL (0.0-2.0)
[2021-02-21 23:41] VITALS: BP 113/78; RESP 17
--- NOTE | 2021-02-21 23:43 | PC.NURSE ---
BACK FROM RADIOLOGY
--- NOTE | 2021-02-21 23:45 | HMH.EDSEIZ ---
ED Disposition Clinical Impression: Generalized seizure, Multiple sclerosis UTI (urinary tract infection) Qualifiers: Urinary tract infection type: site unspecified Hematuria presence: without hematuria Qualified Code(s): N39.0 - Urinary tract infection, site not specified Disposition: Admitted as Observation Condition on Discharge: Good Instructions: DI for Seizure Disorder -- Adult, DI for Seizure (Not Epilepsy/Seizure Disorder), DI for Seizure Disorder -- Child Referrals: Provider,Referral, [Primary Care Provider] - - Critical Care Critical Care Time: No Attestation: On 02/21/21, the high probability of a clinically significant, sudden or life threatening deterioration of the following system(s) required my full and direct attention, intervention and personal management. The time I documented below is in addition to time spent performing reported procedures but includes the following listed in this critical care notation. Medical Decision Making - Medical Records Medical records reviewed: Yes: I reviewed the patient's medical records. - Arpan Inquiry Pt receiving controlled substance: No Vital Signs: 02/21/21 22:45 Temperature 97.5 F L Temperature Source Rectal Pulse Rate [Right Brachial] 95 H Respiratory Rate 16 Blood Pressure [Right Arm] 116/74 Blood Pressure Mean [Right Arm] 88 Blood Pressure Source [Right Arm] Automatic Cuff Blood Pressure Position [Right Arm] Sitting 02 Sat by Pulse Oximetry 96 Oxygen Delivery Method Room Air - Lab Data Lab results reviewed: Yes: I reviewed the patient's lab results. Lab Results 02/21/21 22:30: WBC 9.7, RBC 5.05, Hgb 15.4, Hct 46.4, MCV 91.8, MCH 30.5, MCHC 33.2, RDW 12.9, Plt Count 524 H, MPV 7.4, Neut % (Auto) 66.3, Lymph % (Auto) 28.6, [place] % (Auto) 3.5, Eos % (Auto) 0.6, Baso % (Auto) 1.0, Neut # (Auto) 6.4, Lymph # (Auto) 2.8, [place] # (Auto) 0.3, Eos # (Auto) 0.1, Baso # (Auto) 0.1 02/21/21 22:30: Sodium 144, Potassium 3.6, Chloride 102, Carbon Dioxide 27, Anion Gap 18.6 H, BUN 12, Creatinine 0.80, Estimated Creat Clear 69, Estimated GFR 78, Est GFR ( Amer) 94, Glucose 79, Calcium 9.4, Total Bilirubin 0.3, AST 25, ALT 18, Alkaline Phosphatase 129 H, Total Protein 9.3 H, Albumin 5.2 H, Globulin 4.1 H, Albumin/Globulin Ratio 1.3, Salicylates < 1.0 L, Acetaminophen < 10 L 02/21/21 22:30: Plasma/Serum Alcohol < 10 02/21/21 22:30: ESR 17 02/21/21 22:30: Lactate 4.3 H 02/21/21 22:30: Procalcitonin 0.043 02/21/21 22:35: Urine Color Yellow, Urine Appearance Clear, Urine pH 8.5, Ur Specific [place] 1.015, Urine Protein 2+, Urine Glucose (UA) Negative, Urine Ketones Negative, Urine Blood 1+, Urine Nitrate Positive, Urine Bilirubin Negative, Urine Urobilinogen 0.2, Ur Leukocyte Esterase 2+ A, Urine RBC 3-5, Urine WBC 3-5, Ur Squamous Epith Cells None, Calcium Oxalate Crystal 1+, Triple Phos Crystals 1+, Urine Bacteria 3+ Result diagrams: 02/21/21 22:30 02/21/21 22:30 Orders (Tests/Meds): ED MEDICATIONS Generic Name Dose Route Start Last Admin Trade Name Freq PRN Reason Stop Dose Admin Sodium Chloride 1,000 mls @ 999 mls/hr 02/21/21 22:45 02/21/21 22:52 Sod Chlor 0.9% 1000ml Bag IV 02/22/21 00:45 999 mls/hr .Q1H1M EVERARDO Administration Ceftriaxone Sodium 1 gm/ 50 mls @ 100 mls/hr 02/22/21 00:39 Sodium Chloride IV 02/22/21 01:08 ONCE ONE Protocol Discontinued Medications Generic Name Dose Route Start Last Admin Trade Name Freq PRN Reason Stop Dose Admin Levetiracetam 1,000 mg/ Sodium 110 mls @ 220 mls/hr 02/21/21 22:43 02/21/21 22:52 Chloride IV 02/21/21 22:44 220 mls/hr ONCE ONE Administration ORDERS Category Date Time Status Acetaminophen Stat Lab 02/21/21 22:30 Results C-Reactive Protein Stat Lab 02/21/21 22:30 Results Comprehensive Metabolic Panel Stat Lab 02/21/21 22:30 Results Drug Screen,Urine Stat Lab 02/21/21 22:35 Received Salicylate Stat Lab 02/21/21 22:30 Results Blood Culture Sta
[2021-02-21 23:53] LABS: Erythrocyte Sedimentation Rate 17 mm/hr (0-20)
[2021-02-22] VITALS (15 sets, daily range): BP systolic 91–143; BP diastolic 51–88; PULSE 70–89; RESP 16–19; TEMP 36.8–38.2; O2SAT 95–100; BMI 19.5
[2021-02-22 01:01] LABS: Coronavirus 19, PCR Not Detected (NotDetected); Influenza A, PCR Not Detected (NotDetected); Influenza B, PCR Not Detected (NotDetected)
--- NOTE | 2021-02-22 02:30 | PC.NURSE ---
all belongings sent with patient and handed off to twin ordaz
--- NOTE | 2021-02-22 02:32 | PC.NURSE ---
patient up to floor via stretcher.
[2021-02-22 02:47] LABS: Reflex Lactic Add Lactic Reflex
[2021-02-22 02:59] LABS: Lactic Acid Follow Up (RFLX 1) 1.3 mmol/L (0.7-2.1)
[2021-02-22 03:50] LABS: C-Reactive Protein 5.9 mg/L (0-4)
[2021-02-22 06:40] LABS: Basophils % 0.3 % (0.1-2.0); Eosinophils % 0.1 % (0.1-12.0); Hematocrit 37.9 % (37.0-47.0); Lymphocytes # 1.5 K/mm3 (0.7-4.5); Lymphocytes % 11.5 % (10-50); Mean Corpuscular HGB Conc 33.1 g/dL (31.8-35.4); Mean Corpuscular Hemoglobin 29.7 pg (27.0-31.2); Mean Corpuscular Volume 89.6 fl (81-99); Mean Platelet Volume 8.1 fl (7.4-10.4); Monocytes # 0.2 K/mm3 (0.1-1.0); Monocytes % 1.8 % (1.7-9.3); Neutrophils # 11.2 K/mm3 (1.8-7.8); Neutrophils % 86.3 % (37.0-80.0); Platelet Count 433 K/mm3 (142-424); Red Blood Count 4.23 M/mm3 (4.20-5.40)
[2021-02-22 06:41] LABS: MANUAL DIFFERENTIAL MANUAL DIFFERENTIAL (MANUAL DIFF)
--- NOTE | 2021-02-22 07:05 | P.CONPHA_ITS ---
[facility] Pharmacy VTE Monitoring - Patient Demographics Admission date: 02/21/21 Report Date: 02/22/21 Time: 07:05 Allergies/Adverse Reactions: Patient Allergies calcium [CALCIUM] Allergy (Unknown, Verified 10/22/19 13:32) latex [LATEX] Allergy (Unknown, Verified 10/22/19 13:32) Height: 1.55 m Weight: 46.805 kg Patient Problems: Current Active Problems UTI (urinary tract infection) (Acute) Multiple sclerosis (Acute) Generalized seizure (Acute) - VTE Risk Labs: VTE Related Lab Results Hgb 15.4 g/dL (12.2-16.2) 02/21/21 22:30 Hct 37.9 % (37.0-47.0) 02/22/21 05:23 Plt Count 433 K/mm3 (142-424) H 02/22/21 05:23 BUN 12 mg/dl (7-17) 02/21/21 22:30 Creatinine 0.80 mg/dl (0.52-1.04) 02/21/21 22:30 Estimated Creat Clear 69 mL/min (50-200) 02/21/21 22:30 - Prophylaxis VTE Prophylaxis Ordered?: Yes Types of VTE Prophylaxis: TEDS Knee High Location of Applied Device: Bilateral Lower Extremeties
[2021-02-22 07:06] LABS: Hemoglobin 12.6 g/dL (12.2-16.2)
[2021-02-22 07:07] LABS: Anion Gap 13.2 mEq/L (5-15); Blood Urea Nitrogen 7 mg/dl (7-17); Calcium 8.6 mg/dl (8.4-10.2); Carbon Dioxide 25 mmol/L (22.0-30.0); Chloride 107 mmol/L (98-107); Creatinine Clearance Estimated 76 mL/min (50-200); Estimated Glomerular Filt Rate 91 ml/min (>60); GFR (African American) 110 ML/MIN (>60); Glucose 117 mg/dl (74-100); Potassium 4.2 mmoL/L (3.5-5.1); Sodium 141 mmol/L (136-145)
--- NOTE | 2021-02-22 08:50 | HMH.HP ---
*Admission Date: 02/21/21 *Chief complaint: Seizure *History of present illness: Ms. Monroy is a 46-year-old female with history of seizure disorder, multiple sclerosis, recurrent UTIs. She presented to the ER last night after family witnessed a seizure lasting several minutes at home. Family reports that she has not been taking her Keppra as prescribed. Patient was altered on arrival. EMS responded to call the patient's home, they provided Versed at time of arrival due to seizure activity. She was brought in by EMS to the ER for further evaluation. On arrival she was still encephalopathic/post ictal. Work-up concerning for post seizure state along with presence of UTI given concerns on UA. Admitted to medicine for further management of her current condition. Initiated on seizure precautions. Resumed home Keppra dose. On assessment this morning, patient will open eyes to verbal stimuli but answers are incoherent and disoriented. Denies any focal pain with head shake. Chronically ill-appearing. [facility] History I have reviewed the patient's past medical history: Yes (from chart) Medical History: Reports:: Migraine Denies:: Cancer, Diabetes Mellitus Type 1, Diabetes Mellitus Type 2, MRSA, Seizures *Have you ever received a pneumonia vaccine?: No *Have you received a flu vaccine this season?: No Other Medical History: Reports: Other Other Surgeries: Yes: , Hysterectomy-Total, Hysterectomy-Partial, Other Amputation: No Fractures: No - *Social History Last grade of school completed: High school graduate Smoking Status: Current every day smoker Tobacco Type: cigarettes # Packs/Day (cigarettes): 2 #Yrs smoked (if former smoker): 20 Alcohol Intake: current Alcohol Intake Frequency:: holidays/special occasions only Substance Use Type: marijuana *Occupational Status:: disabled Housing: apartment Household Members: family *Travel in the last 8 weeks: None Family Hx:: Asthma, Cancer, Diabetes, Heart Attack, Hypertension, Stroke Review of Systems - Review of Systems Review of systems:: unable to obtain (Patient still altered from treatment of her seizure overnight; unable to give history) Meds Home Medications Medication Instructions Recorded Confirmed Type levETIRAcetam [Keppra 500mg tablet] 1,000 mg PO BID 02/22/21 02/22/21 History Allergies Allergy/AdvReac Type Severity Reaction Status Date / Time calcium [CALCIUM] Allergy Unknown Verified 10/22/19 13:32 latex [LATEX] Allergy Unknown Verified 10/22/19 13:32 Exam Vital signs and Labs for Last 24 Hours: Temp Pulse Resp BP Pulse Ox 99.8 F H 83 17 104/65 L 97 02/22/21 08:00 02/22/21 08:00 02/22/21 08:00 02/22/21 08:00 02/22/21 08:00 Laboratory Results - last 24 hr 02/21/21 22:30: WBC 9.7, RBC 5.05, Hgb 15.4, Hct 46.4, MCV 91.8, MCH 30.5, MCHC 33.2, RDW 12.9, Plt Count 524 H, MPV 7.4, Neut % (Auto) 66.3, Lymph % (Auto) 28.6, [place] % (Auto) 3.5, Eos % (Auto) 0.6, Baso % (Auto) 1.0, Neut # (Auto) 6.4, Lymph # (Auto) 2.8, [place] # (Auto) 0.3, Eos # (Auto) 0.1, Baso # (Auto) 0.1 02/21/21 22:30: Sodium 144, Potassium 3.6, Chloride 102, Carbon Dioxide 27, Anion Gap 18.6 H, BUN 12, Creatinine 0.80, Estimated Creat Clear 69, Estimated GFR 78, Est GFR ( Amer) 94, Glucose 79, Calcium 9.4, Total Bilirubin 0.3, AST 25, ALT 18, Alkaline Phosphatase 129 H, C-Reactive Protein 5.9 H, Total Protein 9.3 H, Albumin 5.2 H, Globulin 4.1 H, Albumin/Globulin Ratio 1.3, Salicylates < 1.0 L, Acetaminophen < 10 L 02/21/21 22:30: Plasma/Serum Alcohol < 10 02/21/21 22:30: ESR 17 02/21/21 22:30: Lactate 4.3 H 02/21/21 22:30: Procalcitonin 0.043 02/21/21 22:35: Urine Color Yellow, Urine Appearance Clear, Urine pH 8.5, Ur Specific [place] 1.015, Urine Protein 2+, Urine Glucose (UA) Negative, Urine Ketones Negative, Urine Blood 1+, Urine Nitrate Positive, Urine Bilirubin Negative, Urine Urobilinogen 0.2, Ur Leukocyte Esterase 2+ A, Urine RBC 3-5, Urine WBC 3-5, Ur Squamous Epith Cell
[2021-02-22 09:28] LABS: Hypochromasia 1+; Lymphocytes % 18 % (10-50); Monocytes % 3 % (2-9); Neutrophils % 79 % (42-76); Platelet Estimate Normal; Total Cells Counted 100
[2021-02-22 09:29] LABS: Macrocytosis 1+
[2021-02-22 10:23] LABS: Barbiturates Screen,Urine Negative ng/ml (<200)
[2021-02-22 10:24] LABS: Amphetamine/Metha Screen,Urine Negative ng/ml (<1000); Benzodiazepines Screen,Urine Positive ng/ml (<200)
[2021-02-22 10:25] LABS: Methadone Screen,Urine Negative ng/ml (<300)
[2021-02-22 10:26] LABS: Cannabinoid Screen,Urine Negative ng/ml (<50); Cocaine Screen,Urine Negative ng/ml (<300)
[2021-02-22 10:27] LABS: Opiate Screen,Urine Negative ng/ml (<300); Phencyclidine Screen,Urine Negative ng/ml (<25)
--- NOTE | 2021-02-22 11:35 | PC.NURSE ---
Received call from pt's [id number], pt's son's phoe # is
--- NOTE | 2021-02-22 15:44 | PC.NURSE ---
No acute changes. She has slept most of shift, awakens easily when spoken to and is able to follow commands. Remains on room air. Lungs diminished throughout. HR regular. Abdomen soft, non-tender w/ active BS in all quads. No BM this shift. Goncalves cath to drain @ bedside w/ clear yellow urine noted. She is able to turn and reposition herself independently in the bed. Pt has not wanted to eat this shift, she has been offered food at each meal as well as supplements in between. Pt's [id number] did come to visit this AM, family updated on POC. Pt currently resting. No complaints voiced. Call costello w/in reach. Seizure pads and bed alarm in place.
[2021-02-23] VITALS (8 sets, daily range): BP systolic 109–143; BP diastolic 46–71; PULSE 50–65; RESP 14–18; TEMP 36.9–37.3; O2SAT 95–100; BMI 19.8
--- NOTE | 2021-02-23 03:17 | PC.NURSE ---
No acute changes this shift. Pt has slept well all night. Pt has a zhou that is draining clear, yellow urine. VSS, IV patent with NS infusing at 100ml/hr. Admin meds per OCT. Pt denies pain, N/V. Seizure pads and bed alarm on. Call light within reach. Will continue to monitor.
[2021-02-23 07:07] LABS: Alanine Aminotransferase 10 U/L (12-78); Albumin Level 3.5 g/dl (3.5-5.0); Albumin/Globulin Ratio 1.2 (1.1-1.8); Alkaline Phosphatase 85 U/L (38-126); Anion Gap 10.9 mEq/L (5-15); Aspartate Amino Transferase 19 U/L (14-36); Bilirubin,Total 0.4 mg/dl (0.2-1.3); Blood Urea Nitrogen 6 mg/dl (7-17); Calcium 8.6 mg/dl (8.4-10.2); Carbon Dioxide 26 mmol/L (22.0-30.0); Chloride 106 mmol/L (98-107); Creatinine Clearance Estimated 90 mL/min (50-200); Estimated Glomerular Filt Rate 109 ml/min (>60); GFR (African American) 131 ML/MIN (>60); Globulin 2.9 g/dL (1.3-3.2); Glucose 101 mg/dl (74-100); Magnesium 1.8 mg/dl (1.6-2.3); Potassium 3.9 mmoL/L (3.5-5.1); Sodium 139 mmol/L (136-145); Total Protein,Serum 6.4 g/dl (6.3-8.2)
[2021-02-23 07:22] LABS: Basophils # 0.1 K/mm3 (0-0.2); Basophils % 0.4 % (0.1-2.0); Eosinophils % 0.1 % (0.1-12.0); Hematocrit 36.1 % (37.0-47.0); Hemoglobin 11.9 g/dL (12.2-16.2); Lymphocytes # 3.2 K/mm3 (0.7-4.5); Lymphocytes % 25.7 % (10-50); Mean Corpuscular HGB Conc 33.1 g/dL (31.8-35.4); Mean Corpuscular Hemoglobin 29.4 pg (27.0-31.2); Mean Corpuscular Volume 88.9 fl (81-99); Mean Platelet Volume 8.3 fl (7.4-10.4); Monocytes # 0.5 K/mm3 (0.1-1.0); Monocytes % 3.7 % (1.7-9.3); Neutrophils # 8.8 K/mm3 (1.8-7.8); Neutrophils % 70.1 % (37.0-80.0); Platelet Count 390 K/mm3 (142-424); Red Blood Count 4.06 M/mm3 (4.20-5.40); Red Cell Distribution Width 12.9 % (11.5-17.5); White Blood Count 12.6 K/mm3 (4.8-10.8)
--- NOTE | 2021-02-23 08:40 | HMH.ACPN2 ---
Internal Medicine - PN: Subj *Date: 02/23/21 *Time: 08:40 Interval history: Through the night patient was much more talkative, but remains significantly cognitively impaired. Exam Vital signs and Labs for Last 24 Hours: Temp Pulse Resp BP Pulse Ox 98.6 F 65 18 121/63 100 02/23/21 04:00 02/23/21 04:00 02/23/21 04:00 02/23/21 04:00 02/23/21 04:00 Laboratory Results - last 24 hr 02/21/21 22:35: Urine Color Yellow, Urine Appearance Clear, Urine pH 8.5, Ur Specific [place] 1.015, Urine Protein 2+, Urine Glucose (UA) Negative, Urine Ketones Negative, Urine Blood 1+, Urine Nitrate Positive, Urine Bilirubin Negative, Urine Urobilinogen 0.2, Ur Leukocyte Esterase 2+ A, Urine RBC 3-5, Urine WBC 3-5, Ur Squamous Epith Cells None, Calcium Oxalate Crystal 1+, Triple Phos Crystals 1+, Urine Bacteria 3+ 02/21/21 22:35: Urine Opiates Screen Negative, Urine Methadone Screen Negative, Ur Barbituates Screen Negative, Ur Phencyclidine Scrn Negative, Ur Amphetamines Screen Negative, U Benzodiazepines Scrn Positive H, Urine Cocaine Screen Negative, U Marijuana (THC) Screen Negative 02/22/21 05:23: Total Counted 100, Neutrophils % (Manual) 79 H, Lymphocytes % (Manual) 18, Monocytes % (Manual) 3, Platelet Estimate Normal, RBC Morphology Not Reportable, Hypochromasia 1+, Macrocytosis 1+ 02/23/21 06:02: WBC 12.6 H, RBC 4.06 L, Hgb 11.9 L, Hct 36.1 L, MCV 88.9, MCH 29.4, MCHC 33.1, RDW 12.9, Plt Count 390, MPV 8.3, Neut % (Auto) 70.1, Lymph % (Auto) 25.7, [place] % (Auto) 3.7, Eos % (Auto) 0.1, Baso % (Auto) 0.4, Neut # (Auto) 8.8 H, Lymph # (Auto) 3.2, [place] # (Auto) 0.5, Eos # (Auto) 0.0, Baso # (Auto) 0.1 02/23/21 06:02: Sodium 139, Potassium 3.9, Chloride 106, Carbon Dioxide 26, Anion Gap 10.9, BUN 6 L, Creatinine 0.60, Estimated Creat Clear 90, Estimated GFR 109, Est GFR ( Amer) 131, Glucose 101 H, Calcium 8.6, Magnesium 1.8, Total Bilirubin 0.4, AST 19, ALT 10 L D, Alkaline Phosphatase 85, Total Protein 6.4 D, Albumin 3.5 D, Globulin 2.9, Albumin/Globulin Ratio 1.2 I & O for Last 24 hours: Intake & Output 02/20/21 02/21/21 02/22/21 02/23/21 11:59 11:59 11:59 11:59 Intake Total 1034 / 1034 2137 / 2137 Output Total 600 / 600 1150 / 1150 Balance 434 / 434 987 / 987 Weight 103 lb 2.998 oz 105 lb 2 oz Microbiology Reports for the Last 24 Hours: Microbiology 02/21/21 22:35 Urine,Catheterized Urine Culture - Preliminary Gram Negative Rods Narrative: Patient is awake, alert, talks quite a bit but keeps repeating herself saying I am fine, I am fine, I am fine which is unusual for her. She is unable to tell me where she is or what day it is. She is unable to talk about her living situation. She states that she lives here and there. Anterior lung enamorado are clear, heart rate regular, abdomen is soft, significant contractures and neuromuscular deficits as previously noted. Cranial nerves however are intact. Assessment and Plan (1) Mild protein-calorie malnutrition Status: Acute Category: Medical Code(s): E44.1 - Mild protein-calorie malnutrition (2) Generalized seizure Status: Acute Category: Medical Code(s): R56.9 - Unspecified convulsions (3) Multiple sclerosis Status: Acute Category: Medical Code(s): G35 - Multiple sclerosis (4) UTI (urinary tract infection) Status: Acute Qualifiers: Urinary tract infection type: site unspecified Hematuria presence: without hematuria Qualified Code(s): N39.0 - Urinary tract infection, site not specified Category: Medical Code(s): N39.0 - Urinary tract infection, site not specified (5) Chronic constipation Status: Acute Category: Medical Code(s): K59.09 - Other constipation - Assessment and plan all Dx Assessment and Plan for all problems:: Significant medical problems related to UTI with severe sepsis and slightly improved. Keppra levels pending. No further seizures. I am extremely con
--- NOTE | 2021-02-23 09:49 | MR_ITS ---
PROCEDURE INFORMATION: Exam: MR Head Without Contrast Exam date and time: 02/23/2021 9:49 AM Age: 46 years old Clinical indication: Condition or disease; Multiple sclerosis; Additional info: Mental status changes, post seizure. Mental status changes. Post seizure. PT has HX ms. Best possible images. Repeated scans and sent best images. Prior MR 03-24-20. TECHNIQUE: Imaging protocol: MR of the head without contrast. COMPARISON: MR BRAIN 03/24/2020 FINDINGS: Image quality is degraded by motion. Brain: There is no extra-axial collection or intra-axial mass. Moderate diffuse volume loss is out of proportion to what is expected for patient age. There is increased, confluent T2/FLAIR hyperintensity within the periventricular and juxtacortical white matter, compatible with submitted history of demyelinating disease. Plaque burden is unchanged in the interval. Cerebral ventricles: Diffuse prominence of the ventricular system is commensurate with volume loss. Bones/joints: Unremarkable. Paranasal sinuses: Normal as visualized. No acute sinusitis. Mastoid air cells: Normal as visualized. No mastoid effusion. Orbital cavity: Unremarkable. Soft tissues: Unremarkable. IMPRESSION: Findings compatible with submitted history of demyelinating disease. No acute abnormality.
--- NOTE | 2021-02-23 10:45 | PC.NURSE ---
er patient and patients son, patient is now . Ex- removed from next of kin and patients son added.
--- NOTE | 2021-02-23 11:25 | PC.NURSE ---
Pt off floor for MRI
--- NOTE | 2021-02-23 12:25 | PC.NURSE ---
Pt back to floor
--- NOTE | 2021-02-23 12:51 | SW/DCPLANNER ---
I attempted to speak with patient this morning regarding discharge plans once medically stable for discharge. During our conversation patient would only state I'm awake, I'm awake, I'm awake . Dr Fragoso has ordered a brain MRI today for this patient. I have attempted to contact patients son (Larry) listed in demographics: no answer VM full. I will continue to follow up with patient/son.
--- NOTE | 2021-02-23 13:44 | PC.NURSE ---
Dietary notified of family's request for menu to assist patient in filling out
--- NOTE | 2021-02-23 14:18 | PC.NURSE ---
Pt is confused. She will answer appropriately then shortly after speech is word salad. She is soft spoken and difficult to understand. She was up to the chair w/assist x1 for a bit but mostly rested in bed this shift. She has a zhou draining clear, yellow urine to gravity. She has been NSR/SB on telemetry with HR as low as 45. She swallowed pills whole with orange juice. Appetite has been very poor. She was offered assistance in eating but she declined multiple times. She denies pain and no had complaints of any kind. Family has been to visit and is supportive. Will continue to monitor.
--- NOTE | 2021-02-23 20:17 | PC.NURSE ---
She was unable to answer questions but instead keeping repeating, lights on it, can't see it. Attempted to turn lights off and on and she continued to repeat the same response. Have since heard her answer no to the SRNA when asked if she wanted a snack. She did follow commands such as squeezing hands and lifting extremities. She continues in seizure precautions. Teds removed and reapplied. F/c patent with yellow, clear urine.
[2021-02-24] VITALS (7 sets, daily range): BP systolic 95–124; BP diastolic 51–73; PULSE 51–90; RESP 15–18; TEMP 36.7–36.9; O2SAT 95–99; BMI 19.3
[2021-02-24 06:38] LABS: Basophils # 0.2 K/mm3 (0-0.2); Basophils % 1.5 % (0.1-2.0); Eosinophils # 0.1 K/mm3 (0.0-0.4); Eosinophils % 1.2 % (0.1-12.0); Hematocrit 35.5 % (37.0-47.0); Hemoglobin 12.1 g/dL (12.2-16.2); Lymphocytes # 3.2 K/mm3 (0.7-4.5); Lymphocytes % 30.2 % (10-50); Mean Corpuscular HGB Conc 34.1 g/dL (31.8-35.4); Mean Corpuscular Hemoglobin 30.7 pg (27.0-31.2); Mean Platelet Volume 7.6 fl (7.4-10.4); Monocytes # 0.5 K/mm3 (0.1-1.0); Monocytes % 5.1 % (1.7-9.3); Neutrophils # 6.6 K/mm3 (1.8-7.8); Platelet Count 368 K/mm3 (142-424); Red Blood Count 3.94 M/mm3 (4.20-5.40); Red Cell Distribution Width 13.1 % (11.5-17.5); White Blood Count 10.6 K/mm3 (4.8-10.8)
[2021-02-24 06:57] LABS: Alanine Aminotransferase 9 U/L (12-78); Albumin Level 3.6 g/dl (3.5-5.0); Albumin/Globulin Ratio 1.3 (1.1-1.8); Alkaline Phosphatase 77 U/L (38-126); Anion Gap 11.5 mEq/L (5-15); Aspartate Amino Transferase 16 U/L (14-36); Bilirubin,Total 0.4 mg/dl (0.2-1.3); Blood Urea Nitrogen 5 mg/dl (7-17); Calcium 8.6 mg/dl (8.4-10.2); Carbon Dioxide 27 mmol/L (22.0-30.0); Chloride 106 mmol/L (98-107); Creatinine Clearance Estimated 75 mL/min (50-200); Estimated Glomerular Filt Rate 91 ml/min (>60); GFR (African American) 110 ML/MIN (>60); Globulin 2.8 g/dL (1.3-3.2); Glucose 92 mg/dl (74-100); Potassium 3.5 mmoL/L (3.5-5.1); Sodium 141 mmol/L (136-145); Total Protein,Serum 6.4 g/dl (6.3-8.2)
--- NOTE | 2021-02-24 08:22 | HMH.ACPN2 ---
Internal Medicine - PN: Subj *Date: 02/24/21 *Time: 08:22 Interval history: Patient did fairly well overnight. No further seizure activity or fevers. Nurses report that she is somewhat more communicative and more oriented. Exam Vital signs and Labs for Last 24 Hours: Temp Pulse Resp BP Pulse Ox 98.4 F 62 18 124/70 98 02/24/21 07:59 02/24/21 07:59 02/24/21 07:59 02/24/21 07:59 02/24/21 07:59 Laboratory Results - last 24 hr 02/24/21 05:33: WBC 10.6, RBC 3.94 L, Hgb 12.1 L, Hct 35.5 L, MCV 90.0, MCH 30.7, MCHC 34.1, RDW 13.1, Plt Count 368, MPV 7.6, Neut % (Auto) 62.0, Lymph % (Auto) 30.2, [place] % (Auto) 5.1, Eos % (Auto) 1.2, Baso % (Auto) 1.5, Neut # (Auto) 6.6, Lymph # (Auto) 3.2, [place] # (Auto) 0.5, Eos # (Auto) 0.1, Baso # (Auto) 0.2 02/24/21 05:33: Sodium 141, Potassium 3.5, Chloride 106, Carbon Dioxide 27, Anion Gap 11.5, BUN 5 L, Creatinine 0.70, Estimated Creat Clear 75, Estimated GFR 91, Est GFR ( Amer) 110, Glucose 92, Calcium 8.6, Total Bilirubin 0.4, AST 16, ALT 9 L, Alkaline Phosphatase 77, Total Protein 6.4, Albumin 3.6, Globulin 2.8, Albumin/Globulin Ratio 1.3 I & O for Last 24 hours: Intake & Output 02/21/21 02/22/21 02/23/21 02/24/21 11:59 11:59 11:59 11:59 Intake Total 1034 / 1034 2197 / 2197 2016 Output Total 600 / 600 1825 / 1825 2570 / 2570 Balance 434 / 434 372 / 372 -553 / -553 Weight 103 lb 2.998 oz 105 lb 2 oz 102 lb 6 oz Microbiology Reports for the Last 24 Hours: Microbiology 02/21/21 22:35 Urine,Catheterized Urine Culture - Final Proteus mirabilis 02/21/21 23:05 Blood Blood Culture - Preliminary NO GROWTH AFTER 48 HOURS 02/21/21 23:05 Blood Blood Culture - Preliminary NO GROWTH AFTER 48 HOURS Narrative: Patient is alert. Awake. Oriented x2, is able to state that she is in [facility] but is unable to tell me what town she is in. Has difficulty telling me where she lives-I am not sure if this is because she is probably homeless at this point. When asks several questions in a row she does begin some perseverating with certain phrases such as I feel fine, I feel fine, I feel fine but overall is slightly more communicative than yesterday. Cranial nerves intact, previously noted contractures and neurologic difficulties from her MS unchanged. Abdomen soft nontender. Heart rate regular. Assessment and Plan (1) Mild protein-calorie malnutrition Status: Acute Category: Medical Code(s): E44.1 - Mild protein-calorie malnutrition (2) Generalized seizure Status: Acute Category: Medical Code(s): R56.9 - Unspecified convulsions (3) Multiple sclerosis Status: Acute Category: Medical Code(s): G35 - Multiple sclerosis (4) UTI (urinary tract infection) Status: Acute Qualifiers: Urinary tract infection type: site unspecified Hematuria presence: without hematuria Qualified Code(s): N39.0 - Urinary tract infection, site not specified Category: Medical Code(s): N39.0 - Urinary tract infection, site not specified (5) Chronic constipation Status: Acute Category: Medical Code(s): K59.09 - Other constipation - Assessment and plan all Dx Assessment and Plan for all problems:: Patient with several complicating issues: 1. Sepsis secondary to Proteus UTI-controlled on current antibiotic therapy, sensitive to ceftriaxone. 2. Seizure-probably from #1 and febrile issue and probably medication noncompliance-after patient was admitted to I had seen her in the office and recommended going out on Keppra dose but she never followed up to have levels done or filled the prescription for higher dosage. 3. Overall mental status with confusion. Patient at this point is unable to make coherent decisions but this may be a temporary issue given her improvement over the past 24 hours. We will try to get in alem
--- NOTE | 2021-02-24 10:01 | HMH.PTEV ---
Physical Therapy Evaluation Rehab PT IP Evaluation Start: 02/24/21 08:25 Freq: ONCE Status: Active Protocol: Document 02/24/21 09:56 PHORNE (Rec: 02/24/21 10:01 PHORNE [id number]) Subjective/History History History 46 yowf adm to [facility] with UTI. Seizures and MS at baseline. Pt reports she lives with mother, but needs to be independent with all activity as her mother can not help her very much. She reports she crawls up her stairs at baseline. Subjective Subjective Pt with no c/o pain this am, but feels weak all over. Rehab PT IP Eval Objective Appearance Patient Behavior Appropriate,Impulsive Patient Orientation Person Difficulty following instructions mild Speech Pattern Garbled,Poor Articulation Ambulation Patient Able to Ambulate Yes Ambulation Observation IP General Gait Pattern Observation Wide Based Gait,Shuffling Step Ambulation Distance (feet) 25 Ambulation Assistive Device Rolling Walker Ambulation Ability Contact Guard/Hand Hold Balance Ability to Arise Able, uses arms to help Sitting Balance Steady, safe Standing Balance Steady, wide stance Dynamic Sitting Balance Ability Fair Dynamic Standing Balance Ability Fair Transfers Bed Transfer Ability Contact Guard/Hand Hold Chair Transfer Ability Contact Guard/Hand Hold Sit to Stand Chair Transfer Ability Contact Guard/Hand Hold ROM All Extremities PT ROM Status WFL MMT All Extremities PT MMT ABN Abnormal MMT Grade grossly 3/5 Rehab PT IP prob,goals,plan Problems Date of Evaluation: 02/24/21 PT IP Problems Bed Mobility,Transfers,Gait Rehab Potential Rehab Potential Fair Plan PT Intervention Plan Bed Mobility,Transfers,Gait, Self care,Therapeutic Exercise PT Plan Frequency BID Duration LOS Discharge Goals Bed Transfer Ability Supervision/Stand by Sit to Stand Chair Transfer Ability Supervision/Stand by Ambulation Assistive Device Rolling Walker Ambulation Distance (feet) 40 Discharge Plan PT Discharge Plan Pt is most appropriate for rehab placement at this time due to significant risk of injury without improved strength, endurance, balance
--- NOTE | 2021-02-24 10:26 | SW/DCPLANNER ---
Addendum entered by Lottie Melbourne 03/03/21 10:38: I did not receive an email from Maite. I have contacted her today with no answer and voicemail left at this time for returned phone call/email. Addendum entered by Lottie Melbourne 03/01/21 09:36: I have contacted Maite asking for an email stating that the documentation per MD will suffice rather that APS paperwork as previously discussed. Maite stated that she will send me an email today. Addendum entered by Lottie Melbourne 02/25/21 15:19: Sarah and Maite (Ecommerce Manager of [facility] [phone]) both have stated that the Cabinet does NOT need to have documentation to prove that patient does not have the capacity to make decisions for herself. Maite with the Cabinet has stated that if Dr Bonilla feels that patient is not capable of making decisions and adds to his documentation Patient does not have the capacity to care for herself this will suffice and patient will no longer be able to make decisions for herself: mother (Xenia) is agreeable to sign consent. I spoke with Xenia this afternoon and she is still agreeable to sign consent for placement. Britni/Magaly at [facility] are willing to accept this patient tomorrow pending mother signs paperwork (agreeable), states that patient is not capable of making decisions for herself (in todays progress note) and another negative COVID swab (ordered). The plan is for this patient is to discharge tomorrow to [facility] under Medicaid. Addendum entered by Lottie Melbourne 02/25/21 14:04: Alberto from [facility] came and spoke with patient this afternoon: patient is NOT willing to discharge to [facility]. I have attempted to contact [facility] with no answer. At this time I do not have paperwork stating that patient can NOT make decisions for herself. I am currently waiting to hear back from [facility] to come up with a discharge plan for this patient. If patient is willing to discharge to [facility] then they can accept patient today, Monday 02/26 or Wednesday 02/28. Addendum entered by Lottie Melbourne 02/25/21 12:56: CASEY Smith has recommended placement at [facility]. Patient information has been faxed to Mavis at [facility]. I will follow up with Mavis later today. Sarah: [phone] Addendum entered by Lottie Melbourne 02/25/21 12:50: Sarah has stated that after speaking with patients mother (Xenia Monroy [phone]) the decision has been made for placement for this patient with consent from patients mother. Xenia has explained to Sarah that she is no longer able to care for this patient at home due to patients status changing to total care. I will begin searching for placement for this patient. Addendum entered by Lottie Melbourne 02/25/21 12:39: Sarah evaluated this patient then stated that she was going to [facility] to investigate. Sarah has stated that she will evaluate if house is safe/clean environment for patient to return to: if not Sarah will see if patients mother is agreeable to sign consent for group home placement. Sarah will follow up with me after investigation today. Addendum entered by Lottie Melbourne 02/25/21 11:30: Sarah with APS will be at [facility] soon to investigate situation. Addendum entered by [facility] 02/25/21 09:40: ID# [id number] did meet criteria by Central Intake. A cabinet APS worker will be assigned to this case. I have informed patients nurse (Brittanie) and Dr Bonilla. Addendum entered by Lottie Melbourne 02/24/21 13:25: Due to original report not meeting criteria ([id number]) I have made an additional report. Patient is not able to make decisions for herself and does need group home placement. New ID# is [id number]. I will follow up with Central Intake this afternoon/morning to follow up with ID#. Original Note: I spoke with patients son (Larry) this morning regarding home situation for this patient. Larry stated that patient resides at home with her mother. Larry stated that patients mother was only ab
--- NOTE | 2021-02-24 10:26 | HMH.OTEV ---
OT Inpatient Evaluation Rehab OT IP Evaluation Start: 02/24/21 08:25 Freq: ONCE Status: Complete Protocol: Document 02/24/21 10:12 ARABELLA (Rec: 02/24/21 10:26 ARABELLA [id number]) Rehab OT IP Assessment Subjective History *Admission Date: 02/21/21 *Chief complaint: Seizure *History of present illness: Ms. Monroy is a 46-year-old female with history of seizure disorder, multiple sclerosis, recurrent UTIs. She presented to the ER last night after family witnessed a seizure lasting several minutes at home. Family reports that she has not been taking her Keppra as prescribed. Patient was altered on arrival. EMS responded to call the patient' s home, they provided Versed at time of arrival due to seizure activity. She was brought in by EMS to the ER for further evaluation. On arrival she was still encephalopathic/post ictal. Work-up concerning for post seizure state along with presence of UTI given concerns on UA. Admitted to medicine for further management of her current condition. Initiated on seizure precautions. Resumed home Keppra dose. On assessment this morning, patient will open eyes to verbal stimuli but answers are incoherent and disoriented. Denies any focal pain with head shake. Chronically ill-appearing. Patient lives at home with mother in 1 story home with no NATHALIE. Mother is unable to provide care for this patient with ADLs and functional mobilties. Patient completes all ADLs, transfers and ambulation indepedently, however accord
--- NOTE | 2021-02-24 10:55 | HMH.SLDYSPHA ---
Speech & Language Evaluation Speech/Language Dysphagia Evaluation Start: 02/24/21 10:45 Freq: ONCE Status: Active Protocol: Document 02/24/21 10:45 RONNA (Rec: 02/24/21 10:55 RONNA [id number]) Dysphagia Assess/Goals/Plan Assessment Date of Evaluation: 02/24/21 Evaluation Type Initial Certification Assessment/Problems Rule out Dysphagia Does Patient Qualify for Service No Qualify/Failure Comment Ms. Monroy's current diet is appropriate for her. She will need reminders to chew while eating. She will need her dentures in during mealtimes. Recommendations PHYSICIAN CERTIFICATION: The specified therapy services are required, authorized, and reviewed every 30 days. Diet Recommendations Mechanical Soft Liquid Type Recommendations Normal/Thin SL Swallow Guidelines Alt bite w/sip thru meal, Standard Aspiration Prec. Dysphagia Swallow Precautions/Strategies Sitting Upright (90 deg),Small Bites and Sips,Alternate Liquids/Solids Plan Pt/Guardian verbally ack understanding Yes: RN notified of dx/prognosis/goals G -code Required No General Information General Current Food Consistancy Dysphagia Mechanical Soft, Ground Meats,Thin Liquids Dentition Edentulous Oxygen Status Room Air Facial Symmetry Symmetrical Patient Orientation Person Ability to Follow Directions Poor Communication Ability Severe Impairment Dysphagia:Food Presentation Evaluation Food Type Pureed,Mechanical Soft,Liquid, Pudding Dysphagia Evaluation Mechanical Soft Difficulty chewing Food Behavior Response Dysphagia Evaluation Summary Ms. Monroy was given the following consistencies: thins via straw and open cup, pudding, pureed, and mechanical soft. The following signs of dysphagia were noted : difficulty chewing due to lack of dentition. She swallowed the bolus whole with a drink of thin liquids. She will need to be reminded to put her dentures in during mealtimes and reminded to chew her food. Her current diet is appropriate. Stroke Dysphagia Assessment
[2021-02-25] VITALS: BP 99/62; PULSE 64; RESP 17; TEMP 36.8; O2SAT 96
[2021-02-25 04:00] VITALS: BP 116/64; BP 94/50; PULSE 58; PULSE 64; RESP 17; TEMP 36.7; TEMP 36.9; O2SAT 96; O2SAT 99
[2021-02-25 05:00] VITALS: BMI 19.3
--- NOTE | 2021-02-25 06:00 | PC.NURSE ---
shift summary patient has been pleasant this shift. oriented to person and birthday. follows commands appropriately. when asked questions patient sometimes has to concentrate to find words. breath sounds clear, pulses palpable. zhou catheter draining clear yellow urine.
--- NOTE | 2021-02-25 07:35 | HMH.ACPN2 ---
Internal Medicine - PN: Subj *Date: 02/25/21 *Time: 08:31 Interval history: Patient hemodynamically stable this morning. Remains afebrile and without seizure for over 48 hours now. On interview this morning she is pleasant and interactive. When asked her name she says Anna Magaña . When asked her birthday she says 1975. When asked what building the RN she says [place] . When asked the season she says [place] . When asked what city we are in she says [place] . When asked the president she says I do not know . She does admit to missing her medications and having lots of seizures at home. Extensive discussion this morning about next steps as she is nearing discharge criteria from an acute standpoint. Patient states she can take care of herself. I have strong concern for this. While she is oriented to person and general place, she consistently shows inability to manage her own medications, does not have brought her understanding of current medical condition, and therefore I feel does not have capacity to make a decision at this time of her medical needs. Exam Vital signs and Labs for Last 24 Hours: Temp Pulse Resp BP Pulse Ox 98.1 F 58 L 17 94/50 L 99 02/25/21 04:00 02/25/21 04:00 02/25/21 04:00 02/25/21 04:00 02/25/21 04:00 I & O for Last 24 hours: Intake & Output 02/22/21 02/23/21 02/24/21 02/25/21 23:59 23:59 23:59 23:59 Intake Total 1722 / 1722 2271 / 2271 2777 / 2777 1150 / 1150 Output Total 1250 / 1750 2525 / 3225 3220 / 3220 1350 / 1350 Balance 472 / -28 -254 / -954 -443 / -443 -200 / -200 Weight 46.805 kg 48 kg 46.437 kg 46.437 kg Microbiology Reports for the Last 24 Hours: Microbiology 02/21/21 22:35 Urine,Catheterized Urine Culture - Final Proteus mirabilis Narrative: Patient is alert. Awake. Oriented x2, cannot state today that she is at [facility] or why she is here. Heart rate regular, no murmurs Lungs clear to auscultation Abdomen soft, bowel sounds active, no tenderness More communicative but not more oriented today Cranial nerves intact, previously noted contractures and neurologic difficulties from her MS unchanged. Goncalves in place Assessment and Plan (1) Mild protein-calorie malnutrition Status: Acute Category: Medical Code(s): E44.1 - Mild protein-calorie malnutrition (2) Generalized seizure Status: Acute Category: Medical Code(s): R56.9 - Unspecified convulsions (3) Multiple sclerosis Status: Acute Category: Medical Code(s): G35 - Multiple sclerosis (4) UTI (urinary tract infection) Status: Acute Qualifiers: Urinary tract infection type: site unspecified Hematuria presence: without hematuria Qualified Code(s): N39.0 - Urinary tract infection, site not specified Category: Medical Code(s): N39.0 - Urinary tract infection, site not specified (5) Chronic constipation Status: Acute Category: Medical Code(s): K59.09 - Other constipation - Assessment and plan all Dx Assessment and Plan for all problems:: 46-year-old female with MS who presented to the ER with seizure and sepsis secondary to Proteus UTI. Problems addressed as follows: 1. Sepsis secondary to Proteus UTI-controlled on current antibiotic therapy, sensitive to ceftriaxone. 2. Seizure-likely from UTI and medication noncompliance (patient admits to this). -Continue Keppra. No seizures since admission. -Continue seizure precautions. 3. Overall mental status with confusion. Patient at this point is unable to make coherent decisions. Do not feel she has capacity to fully understand her medical condition, and decisions moving forward with her care at this time. Recommend pursuing guardianship given family dynamic. -Medical surrogate however if family is to make decisions follows the progression of her adult aged children (son and daughter), her mother, and then her siblings. This is unless a g
--- NOTE | 2021-02-25 07:53 | DIET.NUTRFU ---
Nutritional consult completed, pt with moderate protein calorie malnutrition related to MS as evidenced by PO intakes<75% EER, moderate muscle wasting and subcutaneous fat loss. Pt has maintained her weight over the past 3 years. She reports inadequate intakes of protein and carbohydrates, global weakness, and fatigue. Diet edu/counseling provided for malnutrition and high energy/protein diet as well as nutritional considerations for MS. Will continue to f/u and academic counselor t/o stay.
[2021-02-25 08:00] VITALS: BP 104/62; PULSE 64; RESP 15; TEMP 36.8; O2SAT 94
[2021-02-25 08:34] LABS: Basophils # 0.1 K/mm3 (0-0.2); Basophils % 0.8 % (0.1-2.0); Eosinophils # 0.3 K/mm3 (0.0-0.4); Eosinophils % 2.7 % (0.1-12.0); Hematocrit 39.7 % (37.0-47.0); Hemoglobin 13.5 g/dL (12.2-16.2); Lymphocytes # 2.8 K/mm3 (0.7-4.5); Lymphocytes % 29.8 % (10-50); Mean Corpuscular HGB Conc 33.9 g/dL (31.8-35.4); Mean Corpuscular Hemoglobin 30.7 pg (27.0-31.2); Mean Corpuscular Volume 90.5 fl (81-99); Mean Platelet Volume 7.3 fl (7.4-10.4); Monocytes # 0.5 K/mm3 (0.1-1.0); Monocytes % 4.9 % (1.7-9.3); Neutrophils # 5.9 K/mm3 (1.8-7.8); Neutrophils % 61.9 % (37.0-80.0); Platelet Count 360 K/mm3 (142-424); Red Blood Count 4.39 M/mm3 (4.20-5.40); White Blood Count 9.5 K/mm3 (4.8-10.8)
[2021-02-25 08:46] LABS: Chloride 106 mmol/L (98-107); Potassium 3.3 mmoL/L (3.5-5.1); Sodium 142 mmol/L (136-145)
[2021-02-25 08:48] LABS: Blood Urea Nitrogen 4 mg/dl (7-17); Creatinine Clearance Estimated 88 mL/min (50-200); Estimated Glomerular Filt Rate 109 ml/min (>60); GFR (African American) 131 ML/MIN (>60)
[2021-02-25 08:49] LABS: Alanine Aminotransferase 13 U/L (12-78); Albumin Level 3.8 g/dl (3.5-5.0); Albumin/Globulin Ratio 1.3 (1.1-1.8); Alkaline Phosphatase 77 U/L (38-126); Anion Gap 10.3 mEq/L (5-15); Aspartate Amino Transferase 18 U/L (14-36); Bilirubin,Total 0.2 mg/dl (0.2-1.3); Calcium 8.8 mg/dl (8.4-10.2); Carbon Dioxide 29 mmol/L (22.0-30.0); Glucose 98 mg/dl (74-100); Total Protein,Serum 6.8 g/dl (6.3-8.2)
--- NOTE | 2021-02-25 09:52 | HMH.ACPN ---
Internal Medicine - PN: Subj *Date: 02/25/21 *Time: 09:52 Exam Vital signs and Labs for Last 24 Hours: Temp Pulse Resp BP Pulse Ox 98.2 F 64 15 104/62 L 94 L 02/25/21 08:00 02/25/21 08:00 02/25/21 08:00 02/25/21 08:00 02/25/21 08:00 Laboratory Results - last 24 hr 02/25/21 08:24: WBC 9.5, RBC 4.39, Hgb 13.5, Hct 39.7, MCV 90.5, MCH 30.7, MCHC 33.9, RDW 13.0, Plt Count 360, MPV 7.3 L, Neut % (Auto) 61.9, Lymph % (Auto) 29.8, [place] % (Auto) 4.9, Eos % (Auto) 2.7, Baso % (Auto) 0.8, Neut # (Auto) 5.9, Lymph # (Auto) 2.8, [place] # (Auto) 0.5, Eos # (Auto) 0.3, Baso # (Auto) 0.1 02/25/21 08:24: Sodium 142, Potassium 3.3 L, Chloride 106, Carbon Dioxide 29, Anion Gap 10.3, BUN 4 L, Creatinine 0.60, Estimated Creat Clear 88, Estimated GFR 109, Est GFR ( Amer) 131, Glucose 98, Calcium 8.8, Magnesium 2.0 D, Total Bilirubin 0.2, AST 18, ALT 13 D, Alkaline Phosphatase 77, Total Protein 6.8, Albumin 3.8, Globulin 3.0, Albumin/Globulin Ratio 1.3 I & O for Last 24 hours: Intake & Output 02/22/21 02/23/21 02/24/21 02/25/21 23:59 23:59 23:59 23:59 Intake Total 1722 / 1722 2271 / 2271 2777 / 2777 1390 / 1390 Output Total 1250 / 1750 2525 / 3225 3220 / 3220 1600 / 1600 Balance 472 / -28 -254 / -954 -443 / -443 -210 / -210 Weight 46.805 kg 48 kg 46.437 kg 46.437 kg Microbiology Reports for the Last 24 Hours: Microbiology 07/19/21 22:35 Urine,Catheterized Urine Culture - Final Proteus mirabilis Assessment and Plan (1) Mild protein-calorie malnutrition Status: Acute Category: Medical Code(s): E44.1 - Mild protein-calorie malnutrition (2) Generalized seizure Status: Acute Category: Medical Code(s): R56.9 - Unspecified convulsions (3) Multiple sclerosis Status: Acute Category: Medical Code(s): G35 - Multiple sclerosis (4) UTI (urinary tract infection) Status: Acute Qualifiers: Urinary tract infection type: site unspecified Hematuria presence: without hematuria Qualified Code(s): N39.0 - Urinary tract infection, site not specified Category: Medical Code(s): N39.0 - Urinary tract infection, site not specified (5) Chronic constipation Status: Acute Category: Medical Code(s): K59.09 - Other constipation The patient's infection will respond to the chosen ABx?: Yes (SENSITIVE PER C&S) Is the patient receiving the right drug, dose, and route?: Yes Could a more targeted ABx be ordered?: No
[2021-02-25 12:00] VITALS: BP 101/67; PULSE 60; RESP 15; TEMP 36.5; O2SAT 97
[2021-02-25 15:47] VITALS: BP 90/64; PULSE 64; RESP 14; TEMP 36.9; O2SAT 97
[2021-02-25 15:55] LABS: Coronavirus 19, PCR Not Detected (NotDetected); Influenza A, PCR Not Detected (NotDetected); Influenza B, PCR Not Detected (NotDetected)
[2021-02-25 16:15] LABS: Levetiracetam (Keppra) <1.0 ug/mL (10.0-40.0)
[2021-02-25 20:00] VITALS: BP 110/64; PULSE 68; RESP 16; TEMP 36.6; O2SAT 96
[2021-02-26 00:07] LABS: Levetiracetam (Keppra) 8.6 ug/mL (10.0-40.0)
[2021-02-26 03:51] VITALS: BP 96/58; PULSE 57; RESP 21; TEMP 37.1; O2SAT 99
--- NOTE | 2021-02-26 04:59 | PC.NURSE ---
shift summary patient has not slept this shift. has been very emotional, frequently crying. patient has been oriented to person only, getting out of bed frequently. bed alarm activated for safety. patient has been difficult to converse with due to confusion and depression. conversations at times not making since. incontinent at times and ambulating with standby assist and walker.
[2021-02-26 05:00] VITALS: BMI 18.8
--- NOTE | 2021-02-26 06:49 | PC.NURSE ---
patient belongings given to family. nhan costello
[2021-02-26 07:18] LABS: Basophils # 0.2 K/mm3 (0-0.2); Basophils % 1.8 % (0.1-2.0); Eosinophils # 0.2 K/mm3 (0.0-0.4); Eosinophils % 2.5 % (0.1-12.0); Hematocrit 39.6 % (37.0-47.0); Hemoglobin 13.5 g/dL (12.2-16.2); Lymphocytes # 3.3 K/mm3 (0.7-4.5); Lymphocytes % 33.6 % (10-50); Mean Corpuscular HGB Conc 34.1 g/dL (31.8-35.4); Mean Corpuscular Hemoglobin 31.1 pg (27.0-31.2); Mean Corpuscular Volume 91.3 fl (81-99); Mean Platelet Volume 7.9 fl (7.4-10.4); Monocytes # 0.5 K/mm3 (0.1-1.0); Monocytes % 5.4 % (1.7-9.3); Neutrophils # 5.6 K/mm3 (1.8-7.8); Neutrophils % 56.7 % (37.0-80.0); Platelet Count 400 K/mm3 (142-424); Red Blood Count 4.33 M/mm3 (4.20-5.40); Red Cell Distribution Width 13.4 % (11.5-17.5); White Blood Count 9.9 K/mm3 (4.8-10.8)
[2021-02-26 07:45] LABS: Alanine Aminotransferase 12 U/L (12-78); Albumin Level 3.8 g/dl (3.5-5.0); Albumin/Globulin Ratio 1.3 (1.1-1.8); Alkaline Phosphatase 87 U/L (38-126); Anion Gap 10.7 mEq/L (5-15); Aspartate Amino Transferase 17 U/L (14-36); Bilirubin,Total 0.3 mg/dl (0.2-1.3); Blood Urea Nitrogen 10 mg/dl (7-17); Calcium 8.9 mg/dl (8.4-10.2); Carbon Dioxide 30 mmol/L (22.0-30.0); Chloride 105 mmol/L (98-107); Creatinine Clearance Estimated 102 mL/min (50-200); Estimated Glomerular Filt Rate 134 ml/min (>60); GFR (African American) 162 ML/MIN (>60); Globulin 2.9 g/dL (1.3-3.2); Glucose 119 mg/dl (74-100); Potassium 3.7 mmoL/L (3.5-5.1); Sodium 142 mmol/L (136-145); Total Protein,Serum 6.7 g/dl (6.3-8.2)
[2021-02-26 08:00] VITALS: BP 97/56; PULSE 78; RESP 15; TEMP 36.7; O2SAT 97
--- NOTE | 2021-02-26 08:05 | HMH.DCSUM ---
General - General Admission date:: 02/22/21 Discharge date: 02/26/21 HPI HPI: Ms. Monroy is a 46-year-old female with history of seizure disorder, multiple sclerosis, recurrent UTIs. She presented to the ER last night after family witnessed a seizure lasting several minutes at home. Family reports that she has not been taking her Keppra as prescribed. Patient was altered on arrival. EMS responded to call the patient's home, they provided Versed at time of arrival due to seizure activity. She was brought in by EMS to the ER for further evaluation. On arrival she was still encephalopathic/post ictal. Work-up concerning for post seizure state along with presence of UTI given concerns on UA. Admitted to medicine for further management of her current condition. Initiated on seizure precautions. Resumed home Keppra dose. On assessment this morning, patient will open eyes to verbal stimuli but answers are incoherent and disoriented. Denies any focal pain with head shake. Chronically ill-appearing. Hospital Course Hospital Course: 46-year-old female with MS who presented to the ER with seizure and sepsis secondary to Proteus UTI. Problems addressed as follows: 1. Sepsis secondary to Proteus UTI-controlled on current antibiotic therapy, sensitive to ceftriaxone. Continue IV ceftriaxone in the hospital. Will complete 2 more days of IM ceftriaxone after discharge for total of 7 days of therapy. 2. Seizure-likely from UTI and medication noncompliance (patient admits to this). -Continued Keppra. No seizures since admission. Tolerated 1000 mg twice a day well for her levetiracetam. Further monitoring or adjustments in the outpatient setting., Keppra level on arrival was undetectable (below threshold of testing). This confirms noncompliance/inconsistent or absent medication dosing. 3. Overall mental status with confusion. Patient at this point is unable to make coherent decisions. While she is alert and oriented to person, she does not answer consistently for orientation nor does she appear to have full understanding of her current situation and medical conditions. Therefore I do not feel she has capacity to fully understand her medical condition, and decisions moving forward with her care at this time. Recommend pursuing guardianship given family dynamic. -Medical surrogate however if family is to make decisions follows the progression of her adult aged children (son and daughter), her mother, and then her siblings. This is unless a guardian is appointed to her. Medically stable for discharge. Examined on day of discharge. Tolerated modified/mechanical soft diet during hospitalization. Objective Vital signs: Temp Pulse Resp BP Pulse Ox 98.7 F 57 L 21 96/58 L 99 02/26/21 03:51 02/26/21 03:51 02/26/21 03:51 02/26/21 03:51 02/26/21 03:51 no acute distress - *Routine HEENT Exam Head: Present: normocephalic Eye: Present: EOMI, PERRL ENT: Present: mucous membranes moist Comments: Edentulous - *Routine Neck Exam Present: supple - *Routine Respiratory Exam Present: CTA bilaterally - *Routine Cardiovascular Exam Present: RRR - *Routine Abdominal Exam Present: soft, normoactive bowel sounds. Absent: tenderness - *Routine Extremities Exam Absent: cyanosis, clubbing, edema - *Routine Skin Exam Present: warm. Absent: rash - *Routine Neurological Exam Present: alert - Detailed Eye Exam Eyelids: Bilateral normal inspection Results Labs on day of discharge: Labs from last 24 hours 02/26/21 02/26/21 02/25/21 07:05 07:05 15:50 WBC 9.9 RBC 4.33 Hgb 13.5 Hct 39.6 MCV 91.3 MCH 31.1 MCHC 34.1 RDW 13.4 Plt Count 400 MPV 7.9 Neut % (Auto) 56.7 Lymph % (Auto) 33.6 [place] % (Auto) 5.4 Eos % (Auto) 2.5 Baso % (Auto) 1.8 Neut # (Auto) 5.6 Lymph # (Auto) 3.3 [place] # (Auto) 0.5 Eos # (Auto) 0.2 Baso # (Auto) 0.2 So
[2021-02-26 11:52] VITALS: BP 101/46; PULSE 62; RESP 15; TEMP 36.8; O2SAT 93
== END 2021-02-26 13:53 ==
LOC: ER 22:48 → 2ND 02-22 00:48
PROVIDERS: Internal Medicine Adolescent Medicine; Admitting Provider Emergency Medicine; Emergency Provider Emergency Medicine; Visit Provider Internal Medicine Adolescent Medicine
DX: A41.9 Sepsis, unspecified organism (principal); G40.909 Epilepsy, unspecified, not intractable, without status epilepticus; G35 Multiple sclerosis; Z20.822 Contact with and (suspected) exposure to COVID-19; F17.210 Nicotine dependence, cigarettes, uncomplicated; Z87.440 Personal history of urinary (tract) infections; N39.0 Urinary tract infection, site not specified; B96.4 Proteus (mirabilis) (morganii) as the cause of diseases classified elsewhere; Z91.14 Patient's other noncompliance with medication regimen; K59.09 Other constipation; R65.20 Severe sepsis without septic shock; Z68.1 Body mass index [BMI] 19.9 or less, adult; E44.1 Mild protein-calorie malnutrition
CPT/HCPCS: 36415; 70450; 70551; 71045; 80048; 80053; 80177; 80305; 80329; 81001; 83605; 83735; 84145; 85007; 85025; 85651; 86140; 87040; 87086; 87088; 87186; 92610; 96365; 96367; 96375; 97110; 97116; 97163; 97165; 97530; 99282; G0378; J1953; U0003

== ENCOUNTER → 2021-08-31 10:44 | Outpatient (CLI) | payer MEDICAID, SELFPAY ==
--- NOTE | 2021-08-31 10:47 | MM_ITS ---
PROCEDURE INFORMATION: Exam: MG Bilateral Screening 3D Mammography Exam date and time: 08/31/2021 10:47 AM Age: 46 years old Clinical indication: Encounter for screening mammogram for malignant neoplasm of breast TECHNIQUE: Imaging protocol: Bilateral Screening tomosynthesis and 2D mammography including computer-aided detection (CAD) when performed. COMPARISON: 1. MG MM DIG SCREENING MAMM BI W/CAD 04/15/2019 3:46 PM 2. MG DMDBAV DIG MAMM-DX NAVA W ADD VIEWS 03/20/2016 4:50 PM FINDINGS: MAMMOGRAPHY: Breast composition: The breast tissue is composed of scattered areas of fibroglandular density. Mass: Questionable 0.6 cm mass in the anterior third of the left lower outer quadrant Architectural distortion: None. Calcifications: No suspicious calcifications. Asymmetric density: None. Skin thickening: None. Axillary adenopathy: None. IMPRESSION: Patient to be recalled for spot compression views of the left breast in the CC and MLO projections, a full 90 degree lateral view, and left breast ultrasound for further evaluation of a left breast mass. ASSESSMENT: BI-RADS Category 0: Incomplete- Need Additional Imaging Evaluation and/or Prior Mammograms for Comparison
== END ==
PROVIDERS: PCP Internal Medicine Adolescent Medicine; Visit Provider Nurse Practitioner Family
DX: Z12.31 Encounter for screening mammogram for malignant neoplasm of breast (principal)
CPT/HCPCS: 77063; 77067

== ENCOUNTER → 2021-10-17 14:21 | Outpatient (CLI) | payer MEDICAID, SELFPAY ==
--- NOTE | 2021-10-17 14:28 | US_ITS ---
PROCEDURE INFORMATION: Exam: US Left Breast, Complete MG Left Diagnostic Breast Tomosynthesis Exam date and time: 10/17/2021 2:28 PM Age: 46 years old Clinical indication: Recall on the basis of screening mammogram from 08/11/2021 for further evaluation of questionable mass in the left breast. TECHNIQUE: Imaging protocol: Complete ultrasound of all four quadrants of the Left breast and the retroareolar regions, including ultrasound of the axilla when performed. Left Diagnostic tomosynthesis and 2D mammography including computer-aided detection (CAD) when performed. Unilateral or bilateral exam. COMPARISON: 1. MG MM DIG SCREENING MAMM BI W/CAD 08/31/2021 10:43 AM 2. MG MM DIG SCREENING MAMM BI W/CAD 04/15/2019 3:46 PM 3. MG DMDBAV DIG MAMM-DX NAVA W ADD VIEWS 03/20/2016 4:50 PM 4. BL US BREAST-LT COMPLETE W/AXILLA 04/06/2016 10:16 AM FINDINGS: MAMMOGRAPHY: Spot compression views show no persistent mass in the lower outer quadrant, anterior 3rd, consistent with overlapping fibroglandular structures. ULTRASOUND: Left breast ultrasound, all 4 quadrants, retroareolar and axilla demonstrate no cystic or solid masses. Sonographically unremarkable left axillary node. IMPRESSION: No persisting mammographic findings and no findings on left breast ultrasound. Annual mammogram recommended unless otherwise clinically indicated. ASSESSMENT: BI-RADS Category 1: Negative
== END ==
PROVIDERS: PCP Internal Medicine Adolescent Medicine; Visit Provider Internal Medicine Adolescent Medicine
DX: R92.8 Other abnormal and inconclusive findings on diagnostic imaging of breast (principal)
CPT/HCPCS: 76641; 77061; 77065; G0279

== ENCOUNTER → 2021-10-28 11:31 | Outpatient (CLI) | payer MEDICAID, SELFPAY ==
[2021-10-28 12:02] LABS: Microscopic, Urine URINE MICROSCOPIC (MICROSCOPIC)
[2021-10-28 12:23] LABS: Appearance,Urine CLEAR (Clear); Bilirubin,Urine Negative (Negative); Blood, Urine TRACE-I (Negative); Color,Urine YELLOW (Yellow); Glucose,Urine (UA) Negative (Negative); Ketones,Urine Negative (Negative); Leukocyte Esterase,Urine 2+ (Negative); Nitrate,Urine Negative (Negative); Protein,Urine Negative (Negative); Specific Gravity, Urine 1.015 (1.005-1.030); Urobilinogen,Urine 0.2 EU/dl (0.2)
[2021-10-28 12:57] LABS: RBC,Urine Occasional #/hpf (0-3); Squamous Epithelial Cell,Urine Occasional #/hpf (0-5)
[2021-10-28 12:58] LABS: Amorphous Sediment,Urine 1+ /lpf; Bacteria,Urine Trace /lpf
== END ==
PROVIDERS: PCP Internal Medicine Adolescent Medicine; Visit Provider Nurse Practitioner Family
DX: N39.0 Urinary tract infection, site not specified (principal)
CPT/HCPCS: 81001; 87086

== ENCOUNTER → 2021-11-18 20:05 | Outpatient (CLI) | payer MEDICAID, SELFPAY ==
[2021-11-18 20:50] LABS: Microscopic, Urine URINE MICROSCOPIC (MICROSCOPIC)
[2021-11-18 20:55] LABS: Appearance,Urine CLOUDY (Clear); Bilirubin,Urine Negative (Negative); Blood, Urine Negative (Negative); Color,Urine YELLOW (Yellow); Glucose,Urine (UA) Negative (Negative); Ketones,Urine Negative (Negative); Leukocyte Esterase,Urine 1+ (Negative); Nitrate,Urine Negative (Negative); Protein,Urine Negative (Negative); Specific Gravity, Urine <= 1.005 (1.005-1.030); Urobilinogen,Urine 0.2 EU/dl (0.2)
[2021-11-18 21:04] LABS: Bacteria,Urine 4+ /lpf; RBC,Urine Occasional #/hpf (0-3)
== END ==
PROVIDERS: Visit Provider Internal Medicine Adolescent Medicine
DX: R10.9 Unspecified abdominal pain (principal); M54.50 Low back pain, unspecified; N39.0 Urinary tract infection, site not specified
CPT/HCPCS: 81001; 87086

== ENCOUNTER 2021-12-25 15:42 | Emergency (ER) | payer MEDICAID, SELFPAY ==
[2021-12-25 15:16] VITALS: BP 122/78; PULSE 88; RESP 16; TEMP 36.6; O2SAT 98; BMI 24.5
[2021-12-25 15:18] VITALS: BP 122/78; PULSE 87; O2SAT 98
--- NOTE | 2021-12-25 15:38 | PC.NURSE ---
PT STRAIGHT CATHED FOR URINE NO BLEEDING NOTED
[2021-12-25 15:39] LABS: Microscopic, Urine URINE MICROSCOPIC (MICROSCOPIC)
[2021-12-25 15:55] LABS: Appearance,Urine TURBID (Clear); Bilirubin,Urine Negative (Negative); Blood, Urine 3+ (Negative); Color,Urine STRAW (Yellow); Glucose,Urine (UA) Negative (Negative); Ketones,Urine Negative (Negative); Leukocyte Esterase,Urine 2+ (Negative); Nitrate,Urine POSITIVE (Negative); Protein,Urine 2+ (Negative); Urobilinogen,Urine 0.2 EU/dl (0.2)
[2021-12-25 16:14] LABS: Bacteria,Urine 2+ /lpf; RBC,Urine TNTC #/hpf (0-3); WBC,Urine TNTC #/hpf (0-3)
[2021-12-25 16:17] LABS: Basophils # 0.3 K/mm3 (0-0.2); Eosinophils # 0.2 K/mm3 (0.0-0.4); Eosinophils % 0.9 % (0.1-12.0); Hematocrit 41.8 % (37.0-47.0); Hemoglobin 13.7 g/dL (12.2-16.2); Lymphocytes % 11.9 % (10-50); Mean Corpuscular HGB Conc 32.9 g/dL (31.8-35.4); Mean Corpuscular Hemoglobin 30.9 pg (27.0-31.2); Mean Platelet Volume 7.2 fl (7.4-10.4); Monocytes % 5.6 % (1.7-9.3); Neutrophils # 13.6 K/mm3 (1.8-7.8); Neutrophils % 79.7 % (37.0-80.0); Platelet Count 562 K/mm3 (142-424); Red Blood Count 4.45 M/mm3 (4.20-5.40); Red Cell Distribution Width 12.6 % (11.5-17.5); White Blood Count 17.1 K/mm3 (4.8-10.8)
[2021-12-25 16:22] LABS: Chloride 102 mmol/L (98-107); Potassium 3.7 mmoL/L (3.5-5.1); Sodium 140 mmol/L (136-145)
[2021-12-25 16:23] LABS: MANUAL DIFFERENTIAL MANUAL DIFFERENTIAL (MANUAL DIFF)
[2021-12-25 16:25] LABS: Alanine Aminotransferase 18 U/L (12-78); Albumin Level 4.5 g/dl (3.5-5.0); Albumin/Globulin Ratio 1.1 (1.1-1.8); Alkaline Phosphatase 100 U/L (38-126); Anion Gap 17.7 mEq/L (5-15); Aspartate Amino Transferase 29 U/L (14-36); Bilirubin,Total 0.6 mg/dl (0.2-1.3); Blood Urea Nitrogen 7 mg/dl (7-17); Calcium 9.5 mg/dl (8.4-10.2); Carbon Dioxide 24 mmol/L (22.0-30.0); Creatinine Clearance Estimated 95 mL/min (50-200); Estimated Glomerular Filt Rate 91 ml/min (>60); GFR (African American) 110 ML/MIN (>60); Globulin 4.2 g/dL (1.3-3.2); Glucose 128 mg/dl (74-100); Total Protein,Serum 8.7 g/dl (6.3-8.2)
[2021-12-25 17:10] VITALS: BP 112/72; PULSE 81; O2SAT 98
--- NOTE | 2021-12-25 17:30 | HMH.EDGENADL ---
ED Disposition Condition on Discharge: Fair - Critical Care Critical Care Time: No <Rigo Hawkins - Last Filed: 12/25/21 21:04> <Kostas Wright - Last Filed: 12/25/21 22:09> Clinical Impression: Vaginal bleeding, Vaginal discharge UTI (urinary tract infection) Qualifiers: Urinary tract infection type: acute cystitis Hematuria presence: with hematuria Qualified Code(s): N30.01 - Acute cystitis with hematuria Abdominal pain Qualifiers: Abdominal location: lower abdomen, unspecified Qualified Code(s): R10.30 - Lower abdominal pain, unspecified Diverticulitis large intestine Qualifiers: Diverticulitis bleeding: without bleeding Diverticulitis complication: without perforation or abscess Qualified Code(s): K57.32 - Diverticulitis of large intestine without perforation or abscess without bleeding Disposition: Home, Self-Care Instructions: DI for Urinary Tract Infection (UTI) Additional Instructions: fluids and use meds as directed Prescriptions: metroNIDAZOLE [metroNIDAZOLE 500mg Tablet] 500 mg PO TID #30 tab Transmission Status: Pending to [facility] [place] Cefdinir [Omnicef 300mg Capsule] 300 mg PO BID #14 cap Transmission Status: Pending to [facility] [place] Referrals: Tai Fragoso MD [Primary Care Provider] - Attestation: On 12/25/21, the high probability of a clinically significant, sudden or life threatening deterioration of the following system(s) required my full and direct attention, intervention and personal management. The time I documented below is in addition to time spent performing reported procedures but includes the following listed in this critical care notation. Medical Decision Making - Arpan Inquiry Pt receiving controlled substance: No - Lab Data Result diagrams: 12/25/21 16:12 12/25/21 16:12 <RossRigo - Last Filed: 12/25/21 21:04> - Medical Records Medical records reviewed: Yes: I reviewed the patient's medical records. - Lab Data Lab results reviewed: Yes: I reviewed the patient's lab results. Result diagrams: 12/25/21 16:12 12/25/21 16:12 - CT Data CT Scan: Abdomen, Pelvis Time Received: 22:[address] Reviewed: Yes: I have viewed the radiologist's interpretation Preliminary Findings: Abnormal <Kostas Wright - Last Filed: 12/25/21 22:09> Vital Signs: 12/25/21 15:16 12/25/21 15:18 12/25/21 17:10 Temperature 98 F Temperature Source Oral Pulse Rate 87 81 Pulse Rate [Radial] 88 Respiratory Rate 16 Blood Pressure 122/78 112/72 Blood Pressure [Right Arm] 122/78 Blood Pressure Mean 85 82 Blood Pressure Mean [Right Arm] 92 Blood Pressure Position [Right Arm] Sitting 02 Sat by Pulse Oximetry 98 98 98 Oxygen Delivery Method Room Air 12/25/21 17:34 Temperature Temperature Source Pulse Rate 85 Pulse Rate [Radial] Respiratory Rate Blood Pressure 119/77 Blood Pressure [Right Arm] Blood Pressure Mean 86 Blood Pressure Mean [Right Arm] Blood Pressure Position [Right Arm] 02 Sat by Pulse Oximetry 97 Oxygen Delivery Method - Lab Data Lab Results 12/25/21 15:25: Urine Color Straw, Urine Appearance Turbid, Urine pH 8.0, Ur Specific [place] 1.010, Urine Protein 2+, Urine Glucose (UA) Negative, Urine Ketones Negative, Urine Blood 3+, Urine Nitrate Positive, Urine Bilirubin Negative, Urine Urobilinogen 0.2, Ur Leukocyte Esterase 2+ A, Urine RBC Tntc, Urine WBC Tntc, Ur Squamous Epith Cells 5-10, Urine Bacteria 2+ 12/25/21 16:12: WBC 17.1 H, RBC 4.45, Hgb 13.7, Hct 41.8, MCV 94.0, MCH 30.9, MCHC 32.9, RDW 12.6, Plt Count 562 H, MPV 7.2 L, Neut % (Auto) 79.7, Lymph % (Auto) 11.9, [place] % (Auto) 5.6, Eos % (Auto) 0.9, Baso % (Auto) 2.0, Neut # (Auto) 13.6 H, Lymph # (Auto) 2.0, [place] # (Auto) 1.0, Eos # (Auto) 0.2, Baso # (Auto) 0.3 H, Total Counted 100, Neutrophils % (Manual) 80 H, Lymphocytes % (Manual) 12, Monocytes % (Manual) 8, Platelet Estimate Normal, Anisocytosis 1+ 12/25/21 16:12: Sod
[2021-12-25 17:34] VITALS: BP 119/77; PULSE 85; O2SAT 97
[2021-12-25 17:35] LABS: Anisocytosis 1+; Lymphocytes % 12 % (10-50); Monocytes % 8 % (2-9); Neutrophils % 80 % (42-76); Platelet Estimate Normal; Total Cells Counted 100
--- NOTE | 2021-12-25 18:32 | CT_ITS ---
PROCEDURE INFORMATION: Exam: CT Abdomen And Pelvis Without Contrast Exam date and time: 12/25/2021 8:53 PM Age: 46 years old Clinical indication: Abdominal pain; Localized; Lower; Prior surgery; Surgery date: 6+ months; Surgery type: Hysterectomy; Patient HX: PT has ms. ; Additional info: Lower abdo pain, vaginal bleeding, prior hysterect TECHNIQUE: Imaging protocol: Computed tomography of the abdomen and pelvis without contrast. Radiation optimization: All CT scans at this facility use at least one of these dose optimization techniques: automated exposure control; mA and/or kV adjustment per patient size (includes targeted exams where dose is matched to clinical indication); or iterative reconstruction. Other contrast: Oral, gastrografin, 30; COMPARISON: No relevant prior studies available. FINDINGS: Lungs: Evidence of prior granulomatous disease at the lung bases. Liver: Normal. No mass. Gallbladder and bile ducts: Normal. No calcified stones. No ductal dilation. Pancreas: Normal. No ductal dilation. Spleen: Scattered granulomas are demonstrated in the spleen. Adrenal glands: Normal. No mass. Kidneys and ureters: Moderate-marked bilateral hydronephrosis and hydroureter, greatest on the right. No evidence of obstructing calculus. Stomach and bowel: See Intraperitoneal space finding. Appendix: No evidence of appendicitis. Intraperitoneal space: There is stranding of the mesenteric fat in the region of the rectosigmoid colon. Scattered diverticula are present in this region. Combined findings suggest changes of diverticulitis . Vasculature: Unremarkable. No abdominal aortic aneurysm. Lymph nodes: Unremarkable. No enlarged lymph nodes. Urinary bladder: Thickening and irregularity of the bladder wall. Findings suggestive of cystitis. Reproductive: Unremarkable as visualized. Bones/joints: Unremarkable. No acute fracture. Soft tissues: Unremarkable. IMPRESSION: 1. Moderate to marked bilateral hydronephrosis and hydroureter. No evidence of obstructing calculus. 2. Thickening and irregularity of the bladder wall. Findings suggestive of cystitis. 3. Findings suggesting mild changes of diverticulitis involving the rectosigmoid colon. 4. Stranding of the mesenteric fat may in part reflect postoperative change. Clinically correlate.
--- NOTE | 2021-12-25 19:20 | PC.NURSE ---
Pt finished drinking contrast. RAD notified.
--- NOTE | 2021-12-25 22:08 | PC.NURSE ---
Jon notified pt is returning to them. Report called to Anna
[2021-12-25 22:37] VITALS: BP 118/72; PULSE 82; RESP 18; TEMP 36.8; O2SAT 95
== END 2021-12-25 22:42 | disposition home or self-care (01) ==
PROVIDERS: Emergency Provider Emergency Medicine; PCP Internal Medicine Adolescent Medicine
DX: N30.01 Acute cystitis with hematuria (principal); K57.32 Diverticulitis of large intestine without perforation or abscess without bleeding; N93.9 Abnormal uterine and vaginal bleeding, unspecified; Z90.710 Acquired absence of both cervix and uterus; G43.909 Migraine, unspecified, not intractable, without status migrainosus; Z88.8 Allergy status to other drugs, medicaments and biological substances; Z91.040 Latex allergy status
CPT/HCPCS: 74176; 80053; 81001; 85007; 85025; 87070; 87077; 87086; 87186; 87205; 87210; 96374; 96375; 99284; J0696

== ENCOUNTER → 2022-01-28 20:21 | Outpatient (CLI) | payer MEDICAID, SELFPAY ==
[2022-01-28 20:34] LABS: Microscopic, Urine URINE MICROSCOPIC (MICROSCOPIC)
[2022-01-28 20:36] LABS: Appearance,Urine CLOUDY (Clear); Bilirubin,Urine Negative (Negative); Blood, Urine 3+ (Negative); Color,Urine YELLOW (Yellow); Glucose,Urine (UA) Negative (Negative); Ketones,Urine Negative (Negative); Leukocyte Esterase,Urine 3+ (Negative); Nitrate,Urine Negative (Negative); Protein,Urine 1+ (Negative); Urobilinogen,Urine 0.2 EU/dl (0.2)
[2022-01-28 20:40] LABS: RBC,Urine 20-50 #/hpf (0-3); WBC,Urine TNTC #/hpf (0-3)
== END ==
PROVIDERS: PCP Internal Medicine Adolescent Medicine; Visit Provider Nurse Practitioner Family
DX: R30.0 Dysuria (principal); N39.0 Urinary tract infection, site not specified; B96.5 Pseudomonas (aeruginosa) (mallei) (pseudomallei) as the cause of diseases classified elsewhere
CPT/HCPCS: 81001; 87086; 87088; 87186

== ENCOUNTER 2022-02-13 15:49 | Observation (INO) | payer MEDICAID, SELFPAY ==
[2022-02-13] VITALS (8 sets, daily range): BP systolic 95–118; BP diastolic 64–77; PULSE 80–99; RESP 16–18; TEMP 37.1; O2SAT 96–98; BMI 21.2; BMI 19.3
--- NOTE | 2022-02-13 16:03 | XR_ITS ---
PROCEDURE INFORMATION: Exam: XR Chest Exam date and time: 02/13/2022 4:20 PM Age: 47 years old Clinical indication: Shortness of breath; Additional info: SOB, not thriving from custodial, has a history of ms TECHNIQUE: Imaging protocol: Radiologic exam of the chest. Views: 1 view. COMPARISON: CR XR CHEST PORTABLE 02/21/2021 11:19 PM FINDINGS: Lungs: Calcified granuloma left upper lobe as well as at the right lung base. Findings stable. Pleural spaces: Unremarkable. No pleural effusion. No pneumothorax. Heart/Mediastinum: Unremarkable. No cardiomegaly. Bones/joints: Unremarkable. IMPRESSION: No evidence of acute cardiopulmonary disease.
--- NOTE | 2022-02-13 16:04 | PC.NURSE ---
1553 ED MD AT BEDSIDE FOR EVALUATION
--- NOTE | 2022-02-13 16:08 | PC.NURSE ---
PT REQUESTING SOMETHING TO DRINK, OK'D PER . WATER PROVIDED
--- NOTE | 2022-02-13 16:27 | PC.NURSE ---
rad at BS for portable xray
--- NOTE | 2022-02-13 16:27 | PC.NURSE ---
covid swab sent to lab at this per [facility]
[2022-02-13 16:30] LABS: Coronavirus 19, PCR Not Detected (NotDetected); Influenza A, PCR Not Detected (NotDetected); Influenza B, PCR Not Detected (NotDetected)
--- NOTE | 2022-02-13 16:46 | PC.NURSE ---
UA COLLECTED PER STERILE TECHNIQUE, PT TOLERATED WELL. SPECIMEN SENT TO LAB
[2022-02-13 16:49] LABS: Microscopic, Urine URINE MICROSCOPIC (MICROSCOPIC)
[2022-02-13 16:53] LABS: Appearance,Urine TURBID (Clear); Blood, Urine 3+ (Negative); Color,Urine YELLOW (Yellow); Glucose,Urine (UA) Negative (Negative); Ketones,Urine TRACE (Negative); Leukocyte Esterase,Urine 3+ (Negative); Nitrate,Urine Negative (Negative); Protein,Urine 2+ (Negative); Urobilinogen,Urine 0.2 EU/dl (0.2)
--- NOTE | 2022-02-13 16:55 | PC.NURSE ---
IV ATT X2 UNSUCCESSFUL
[2022-02-13 17:02] LABS: Bilirubin,Urine 1+ (Negative)
--- NOTE | 2022-02-13 17:18 | PC.NURSE ---
ROUNDED ON PT, FAMILY AT BEDSIDE. WATER PROVIDED. NO FURTHER NEEDS AT THIS TIME
[2022-02-13 17:26] LABS: WBC,Urine TNTC #/hpf (0-3)
[2022-02-13 17:27] LABS: Bacteria,Urine 3+ /lpf; RBC,Urine TNTC #/hpf (0-3)
--- NOTE | 2022-02-13 17:55 | PC.NURSE ---
Dr Clancy obtained ultrasound guided IV on pt
--- NOTE | 2022-02-13 17:56 | PC.NURSE ---
pt difficulty IV stick, ER MD at with US
--- NOTE | 2022-02-13 18:00 | PC.NURSE ---
DELAY IN REATTEMPT OF IV DUE TRAUMA ALERT IN ER, DR BARBOSA DID A ULTRASOUND IV AND LABS SENT UP
--- NOTE | 2022-02-13 18:13 | PC.NURSE ---
Blood sent to lab
[2022-02-13 18:25] LABS: Basophils # 0.1 K/mm3 (0-0.2); Basophils % 0.7 % (0.1-2.0); Eosinophils # 0.2 K/mm3 (0.0-0.4); Eosinophils % 1.2 % (0.1-12.0); Hematocrit 40.2 % (37.0-47.0); Hemoglobin 13.7 g/dL (12.2-16.2); Lymphocytes # 3.2 K/mm3 (0.7-4.5); Lymphocytes % 19.1 % (10-50); Mean Corpuscular HGB Conc 34.1 g/dL (31.8-35.4); Mean Platelet Volume 6.6 fl (7.4-10.4); Monocytes # 1.5 K/mm3 (0.1-1.0); Neutrophils # 11.8 K/mm3 (1.8-7.8); Neutrophils % 69.9 % (37.0-80.0); Platelet Count 672 K/mm3 (142-424); Red Blood Count 4.56 M/mm3 (4.20-5.40); Red Cell Distribution Width 12.5 % (11.5-17.5); White Blood Count 16.9 K/mm3 (4.8-10.8)
[2022-02-13 18:30] LABS: Chloride 91 mmol/L (98-107); Potassium 3.6 mmoL/L (3.5-5.1); Sodium 134 mmol/L (136-145)
[2022-02-13 18:32] LABS: Alanine Aminotransferase 21 U/L (12-78); Alkaline Phosphatase 179 U/L (38-126); Aspartate Amino Transferase 49 U/L (14-36); Bilirubin,Total 0.8 mg/dl (0.2-1.3); Blood Urea Nitrogen 13 mg/dl (7-17); Creatinine Clearance Estimated 76 mL/min (50-200); Estimated Glomerular Filt Rate 78 ml/min (>60); GFR (African American) 94 ML/MIN (>60)
[2022-02-13 18:33] LABS: Albumin Level 4.6 g/dl (3.5-5.0); Albumin/Globulin Ratio 0.9 (1.1-1.8); Anion Gap 16.6 mEq/L (5-15); Calcium 10.3 mg/dl (8.4-10.2); Carbon Dioxide 30 mmol/L (22.0-30.0); Globulin 5.4 g/dL (1.3-3.2); Glucose 127 mg/dl (74-100); Lipase 115 U/L (23-300)
[2022-02-13 18:39] LABS: MANUAL DIFFERENTIAL MANUAL DIFFERENTIAL (MANUAL DIFF)
[2022-02-13 18:45] LABS: Lactic Acid 1.3 mmol/L (0.7-2.1)
[2022-02-13 18:48] LABS: Troponin I < 0.01 ng/ml (0.00-0.034)
--- NOTE | 2022-02-13 18:50 | HMH.EDGENADL ---
ED Disposition Clinical Impression: Dehydration UTI (urinary tract infection) Qualifiers: Urinary tract infection type: acute cystitis Hematuria presence: with hematuria Qualified Code(s): N30.01 - Acute cystitis with hematuria Disposition: Admitted As Inpatient Condition on Discharge: Fair Referrals: Kostas Wright MD [Primary Care Provider] - - Critical Care Critical Care Time: No Attestation: On 02/13/22, the high probability of a clinically significant, sudden or life threatening deterioration of the following system(s) required my full and direct attention, intervention and personal management. The time I documented below is in addition to time spent performing reported procedures but includes the following listed in this critical care notation. Medical Decision Making - Medical Records Medical records reviewed: Yes: I reviewed the patient's medical records. - Arpan Inquiry Pt receiving controlled substance: No Vital Signs: 02/13/22 15:51 02/13/22 17:30 02/13/22 18:01 Temperature 98.7 F Temperature Source Oral Pulse Rate 99 H 97 H Pulse Rate [Brachial] 93 H Respiratory Rate 16 Blood Pressure 98/70 L Blood Pressure [Right Arm] 95/64 L Blood Pressure Mean 77 Blood Pressure Mean [Right Arm] 74 Blood Pressure Source [Right Arm] Manual Cuff/ Doppler Blood Pressure Position [Right Arm] Supine 02 Sat by Pulse Oximetry 97 98 96 Oxygen Delivery Method Room Air 02/13/22 18:30 02/13/22 19:00 Temperature Temperature Source Pulse Rate 85 85 Pulse Rate [Brachial] Respiratory Rate 18 18 Blood Pressure 106/68 L 109/66 L Blood Pressure [Right Arm] Blood Pressure Mean 81 81 Blood Pressure Mean [Right Arm] Blood Pressure Source [Right Arm] Blood Pressure Position [Right Arm] 02 Sat by Pulse Oximetry 97 97 Oxygen Delivery Method - Lab Data Lab Results 02/13/22 16:03: Urine Color Yellow, Urine Appearance Turbid, Urine pH 6.0, Ur Specific [place] 1.020, Urine Protein 2+, Urine Glucose (UA) Negative, Urine Ketones Trace, Urine Blood 3+, Urine Nitrate Negative, Urine Bilirubin 1+ A, Urine Urobilinogen 0.2, Ur Leukocyte Esterase 3+ A, Urine RBC Tntc, Urine WBC Tntc, Ur Squamous Epith Cells 3-5, Urine Bacteria 3+ 02/13/22 16:03: SARS-CoV-2 (PCR) Not detected, Influenza A Untype (PCR) Not detected, Influenza Type B (PCR) Not detected 02/13/22 18:00: WBC 16.9 H, RBC 4.56, Hgb 13.7, Hct 40.2, MCV 88.0, MCH 30.0, MCHC 34.1, RDW 12.5, Plt Count 672 H, MPV 6.6 L, Neut % (Auto) 69.9, Lymph % (Auto) 19.1, [place] % (Auto) 9.0, Eos % (Auto) 1.2, Baso % (Auto) 0.7, Neut # (Auto) 11.8 H, Lymph # (Auto) 3.2, [place] # (Auto) 1.5 H, Eos # (Auto) 0.2, Baso # (Auto) 0.1 02/13/22 18:00: Sodium 134 L, Potassium 3.6, Chloride 91 L, Carbon Dioxide 30, Anion Gap 16.6 H, BUN 13, Creatinine 0.80, Estimated Creat Clear 76, Estimated GFR 78, Est GFR ( Amer) 94, Glucose 127 H, Calcium 10.3 H, Total Bilirubin 0.8, AST 49 H, ALT 21, Alkaline Phosphatase 179 H, Troponin I < 0.01, Total Protein 10.0 H, Albumin 4.6, Globulin 5.4 H, Albumin/Globulin Ratio 0.9 L, Lipase 115, TSH 0.96 02/13/22 18:00: Lactate 1.3 Result diagrams: 02/13/22 18:00 02/13/22 18:00 Orders (Tests/Meds): ED MEDICATIONS Generic Name Dose Route Start Last Admin Trade Name Freq PRN Reason Stop Dose Admin Sodium Chloride 1,000 mls @ 999 mls/hr 02/13/22 18:15 02/13/22 19:05 Sod Chlor 0.9% 1000ml Bag IV 02/13/22 19:15 Not Given .Q1H1M EVERARDO Ceftriaxone Sodium 1 gm/ 50 mls @ 100 mls/hr 02/13/22 18:15 02/13/22 18:16 Sodium Chloride IV 02/27/22 18:14 100 mls/hr Q24H EVERARDO Administration Discontinued Medications Generic Name Dose Route Start Last Admin Trade Name Freq PRN Reason Stop Dose Admin Sodium Chloride 1,000 mls @ 999 mls/hr 02/13/22 18:12 02/13/22 18:14 Sod Chlor 0.9% 1000ml Bag IV 02/13/22 19:12 999 mls/hr .Q1H1M ONE Administration ORDERS Category Date Time Status Complet
--- NOTE | 2022-02-13 18:57 | PC.NURSE ---
Marilin from [facility] called and if patient is being kept, they would like a phone call.
[2022-02-13 19:04] LABS: Thyroid Stimulating Hormone 0.96 uIU/mL (0.465-4.68)
--- NOTE | 2022-02-13 19:28 | PC.NURSE ---
DAUGHTER CALLED AND WAS UPDATED ON PT CONDITION
[2022-02-13 19:31] LABS: Lymphocytes % 29 % (10-50); Monocytes % 5 % (2-9); Neutrophils % 66 % (42-76); Platelet Estimate Marked Increase; Total Cells Counted 100
[2022-02-13 19:32] LABS: RBC Morphology Normal
--- NOTE | 2022-02-13 21:57 | PC.NURSE ---
Patient turn and repositioned kelsea care provided.
--- NOTE | 2022-02-13 22:57 | INFXCTL.NOTE ---
Jon notified of patients admission
[2022-02-14] VITALS (8 sets, daily range): BP systolic 90–102; BP diastolic 57–70; PULSE 83–112; RESP 16–20; TEMP 36.3–37.2; O2SAT 95–99; BMI 19.1
--- NOTE | 2022-02-14 00:04 | PC.NURSE ---
pt repositioned, pt voiced no c/o, drink given call light within reach
--- NOTE | 2022-02-14 05:03 | PC.NURSE ---
Patient has rested comfortably since arriving to the unit. She is tolerating PO fluids well without c/o nausea. Pt has voided one time per attends, small amount and states I know when I am wet . Pt is a Q2 turn, but has been resistant to letting staff assist with turning and repositioning due to a fear of falling . Pt has been reassured that staff would not let her fall. Pt repositioned using the draw sheet, and assisted with placement of lower limbs for comfort. IV remains intact, infusing NS at 75ml/hr. VSS. No acute changes from initial assessment. Afebrile. No complaints or concerns voiced at this time. Will continue to monitor.
[2022-02-14 06:56] LABS: Basophils # 0.1 K/mm3 (0-0.2); Basophils % 0.9 % (0.1-2.0); Eosinophils # 0.1 K/mm3 (0.0-0.4); Eosinophils % 0.4 % (0.1-12.0); Hematocrit 35.9 % (37.0-47.0); Lymphocytes % 19.7 % (10-50); Mean Corpuscular HGB Conc 31.7 g/dL (31.8-35.4); Mean Corpuscular Hemoglobin 29.6 pg (27.0-31.2); Mean Corpuscular Volume 93.6 fl (81-99); Monocytes % 6.6 % (1.7-9.3); Neutrophils # 10.9 K/mm3 (1.8-7.8); Neutrophils % 72.4 % (37.0-80.0); Platelet Count 614 K/mm3 (142-424); Red Blood Count 3.83 M/mm3 (4.20-5.40); Red Cell Distribution Width 13.5 % (11.5-17.5); White Blood Count 15.1 K/mm3 (4.8-10.8)
[2022-02-14 06:59] LABS: MANUAL DIFFERENTIAL MANUAL DIFFERENTIAL (MANUAL DIFF)
[2022-02-14 07:01] LABS: Chloride 100 mmol/L (98-107); Sodium 135 mmol/L (136-145)
[2022-02-14 07:02] LABS: Hemoglobin 11.4 g/dL (12.2-16.2)
[2022-02-14 07:04] LABS: Blood Urea Nitrogen 11 mg/dl (7-17); Carbon Dioxide 25 mmol/L (22.0-30.0); Creatinine Clearance Estimated 92 mL/min (50-200); Estimated Glomerular Filt Rate 108 ml/min (>60); GFR (African American) 131 ML/MIN (>60)
[2022-02-14 07:05] LABS: Glucose 107 mg/dl (74-100)
[2022-02-14 07:27] LABS: Lymphocytes % 18 % (10-50); Monocytes % 3 % (2-9); Neutrophils % 79 % (42-76); Platelet Estimate Marked Increase; RBC Morphology Normal; Total Cells Counted 100
--- NOTE | 2022-02-14 07:28 | PC.NURSE ---
notified of critical K+ level during am rounds
--- NOTE | 2022-02-14 07:28 | PC.NURSE ---
Report given to Danica Hernández RN
--- NOTE | 2022-02-14 08:57 | HMH.PHAVTE ---
[facility] VTE Monitoring - Patient Demographics Admission date: 02/14/22 Report Date: 02/14/22 Time: 08:57 Allergies/Adverse Reactions: Patient Allergies calcium [CALCIUM] Allergy (Unknown, Verified 02/14/22 02:55) latex [LATEX] Allergy (Unknown, Verified 02/14/22 02:55) Height: 1.6 m Weight: 49.351 kg Patient Problems: Current Active Problems UTI (urinary tract infection) (Acute) Dehydration (Acute) - VTE Risk Labs: VTE Related Lab Results Hgb 11.4 g/dL (12.2-16.2) L D 02/14/22 05:35 Hct 35.9 % (37.0-47.0) L 02/14/22 05:35 Plt Count 614 K/mm3 (142-424) H 02/14/22 05:35 BUN 11 mg/dl (7-17) 02/14/22 05:35 Creatinine 0.60 mg/dl (0.52-1.04) D 02/14/22 05:35 Estimated Creat Clear 92 mL/min (50-200) 02/14/22 05:35 Was VTE Risk Assessment Performed: Yes VTE Score: 5 VTE Risk Level: Low Risk Clinical Trial Participant: No - Prophylaxis VTE Prophylaxis Ordered?: Yes Types of VTE Prophylaxis: TEDS Knee High, Pharmacological Pharmacologic Type: Enoxaparin
--- NOTE | 2022-02-14 09:02 | SW/DCPLANNER ---
Addendum entered by Lottie Hooks 02/15/22 08:06: I have notified Jennifer rosa/ [facility] that the plan for this patient is to return today. Patient will need a COVID swab prior to returning. Original Note: This patient currently resides at [facility] level of care. I will continue to follow up with Jennifer at [facility] until patient is medically stable for discharge. Discharge date is unknown at this time.
--- NOTE | 2022-02-14 09:48 | HMH.PHAINT ---
home medication list verified using list from [facility]
--- NOTE | 2022-02-14 10:16 | HMH.HP ---
*Admission Date: 02/14/22 *Chief complaint: Weakness, weight loss *History of present illness: 47-year-old resident of local [facility] who is admitted there because of ongoing multiple sclerosis with essentially wheelchair-bound/bedbound status. She had been fairly stable until about 3 to 4 weeks ago when she stopped eating. There are several multiple psychological overlays, a good friend of hers had recently been discharged from the alf and she has taken this very hard and has told the nursing staff that she is going to stop eating. She is also had some fever chills. Her family is trying to help with bringing food but this has not really done much. We have started mirtazapine but only a couple of days ago when made aware of the situation. She became very listless, febrile and dyspneic late yesterday evening was sent to the emergency department. In the ER she was found to be hypercalcemic and have evidence of dehydration. Evidence of UTI, admitted to hospital for IV fluids and antibiotics. [facility] History I have reviewed the patient's past medical history: Yes Medical History: Reports:: Anxiety, Depression, Migraine, Seizures Denies:: Cancer, Diabetes Mellitus Type 1, Diabetes Mellitus Type 2, MRSA *Have you ever received a pneumonia vaccine?: Yes *Have you received a flu vaccine this season?: Yes Other Medical History: Reports: Arthritis, Other (Severe/chronic/relapsing multiple sclerosis) Other Surgeries: Yes: No Previous Surgery, Colonoscopy, , Hysterectomy-Total, Hysterectomy-Partial, Other Amputation: No Fractures: No - *Social History Smoking Status: Former smoker Tobacco Type: cigarettes # Packs/Day (cigarettes): 2 #Yrs smoked (if former smoker): 20 Alcohol Intake: former Alcohol Intake Frequency:: holidays/special occasions only Substance Use Type: marijuana Last Used Substance: unknown *Occupational Status:: disabled Housing: alf Household Members: other *Travel in the last 8 weeks: None - Psychiatric History Pschychiatric History:: Reports:: Anxiety, Depression Family Hx:: No significant family history Review of Systems - Review of Systems Review of systems:: pertinent systems reviewed and negative unless documented below - *Neurologic Denies headache(s) Meds Home Medications Medication Instructions Recorded Confirmed Type baclofen 10 mg tablet 10 mg PO BIDP PRN 01/10/22 02/14/22 History escitalopram oxalate 10 mg tablet 10 mg PO HS 01/10/22 02/14/22 History ibuprofen 400 mg tablet 400 mg PO Q6HP PRN 01/10/22 02/14/22 History levetiracetam 1,000 mg tablet 1,000 mg PO BID 01/10/22 02/14/22 History loperamide-simethicone 2 mg-125 mg 1 tab PO Q3HP PRN 01/10/22 02/14/22 History tablet ondansetron HCl 4 mg tablet 4 mg PO Q8HP PRN 01/10/22 02/14/22 History propranolol 10 mg tablet 10 mg PO BID 01/10/22 02/14/22 History Mirtazapine 7.5 mg PO HS 02/14/22 02/14/22 History cephALEXin [Cephalexin 250mg Tab] 250 mg PO HS 02/14/22 02/14/22 History Allergies Allergy/AdvReac Type Severity Reaction Status Date / Time calcium [CALCIUM] Allergy Unknown Verified 02/14/22 02:55 latex [LATEX] Allergy Unknown Verified 02/14/22 02:55 Exam Vital signs and Labs for Last 24 Hours: Temp Pulse Resp BP Pulse Ox 97.7 F 112 H 18 102/64 L 97 02/14/22 08:00 02/14/22 08:00 02/14/22 08:00 02/14/22 08:00 02/14/22 08:00 Laboratory Results - last 24 hr 02/13/22 16:03: Urine Color Yellow, Urine Appearance Turbid, Urine pH 6.0, Ur Specific [place] 1.020, Urine Protein 2+, Urine Glucose (UA) Negative, Urine Ketones Trace, Urine Blood 3+, Urine Nitrate Negative, Urine Bilirubin 1+ A, Urine Urobilinogen 0.2, Ur Leukocyte Esterase 3+ A, Urine RBC Tntc, Urine WBC Tntc, Ur Squamous Epith Cells 3-5, Urine Bacteria 3+ 02/13/22 16:03: SARS-CoV-2 (PCR) Not detected, Influenza A Untype (PCR) Not detected, Influenza Type B (PCR) Not detected 02/13/22 18:00: WBC 16.9 H, RBC 4.56, Hgb 13.7, Hct 40
--- NOTE | 2022-02-14 18:13 | PC.NURSE ---
Pt is alert and oriented x4. Afebrile this shift. Appetite is poor with her eating 25% of lunch and 0% of dinner. She has drank 2 breezes. She's repositioned herself in the bed independently. She's been incontinent and using a brief. Anuja area is excoriated, barrier cream applied. Bed is locked and in the lowest position, call light within reach.
[2022-02-15] VITALS: BP 104/69; PULSE 85; RESP 16; TEMP 36.7; O2SAT 95
[2022-02-15 03:58] VITALS: BP 95/58; PULSE 84; RESP 16; TEMP 36.9; O2SAT 100
--- NOTE | 2022-02-15 04:43 | PC.NURSE ---
Pt is A/O x4. Pt has rested intermittently throughout shift. Pt has been incontinent of urine and stool, but can report to staff when she needs to be changed. Pt had x1 BM. Pt can reposition herself in bed independently. Pt remains room air with O2 >90%. Pt had 2 breezes, and ice cream on this shift. Pt states she is feeling much better.
[2022-02-15 05:00] VITALS: BMI 19.9
[2022-02-15 07:31] LABS: Basophils # 0.1 K/mm3 (0-0.2); Basophils % 0.6 % (0.1-2.0); Eosinophils # 0.1 K/mm3 (0.0-0.4); Eosinophils % 0.8 % (0.1-12.0); Hematocrit 32.2 % (37.0-47.0); Hemoglobin 10.7 g/dL (12.2-16.2); Lymphocytes # 2.3 K/mm3 (0.7-4.5); Lymphocytes % 14.8 % (10-50); Mean Corpuscular HGB Conc 33.1 g/dL (31.8-35.4); Mean Corpuscular Hemoglobin 30.9 pg (27.0-31.2); Mean Corpuscular Volume 93.3 fl (81-99); Mean Platelet Volume 7.4 fl (7.4-10.4); Monocytes # 0.8 K/mm3 (0.1-1.0); Monocytes % 5.1 % (1.7-9.3); Neutrophils # 12.2 K/mm3 (1.8-7.8); Neutrophils % 78.7 % (37.0-80.0); Platelet Count 516 K/mm3 (142-424); Red Blood Count 3.45 M/mm3 (4.20-5.40); Red Cell Distribution Width 13.4 % (11.5-17.5); White Blood Count 15.5 K/mm3 (4.8-10.8)
[2022-02-15 07:32] LABS: MANUAL DIFFERENTIAL MANUAL DIFFERENTIAL (MANUAL DIFF)
[2022-02-15 07:36] LABS: Chloride 109 mmol/L (98-107); Sodium 140 mmol/L (136-145)
[2022-02-15 07:39] LABS: Blood Urea Nitrogen 9 mg/dl (7-17); Creatinine Clearance Estimated 114 mL/min (50-200); Estimated Glomerular Filt Rate 133 ml/min (>60); GFR (African American) 161 ML/MIN (>60)
[2022-02-15 07:40] LABS: Anion Gap 10.9 mEq/L (5-15); Calcium 8.3 mg/dl (8.4-10.2); Carbon Dioxide 23 mmol/L (22.0-30.0); Glucose 104 mg/dl (74-100)
[2022-02-15 07:43] LABS: Potassium 2.9 mmoL/L (3.5-5.1)
[2022-02-15 08:00] VITALS: BP 90/54; PULSE 97; RESP 16; TEMP 37.2; O2SAT 95
[2022-02-15 08:02] LABS: Lymphocytes % 17 % (10-50); Monocytes % 4 % (2-9); Neutrophils % 79 % (42-76); Platelet Estimate Slight Increase; RBC Morphology Normal; Total Cells Counted 100
--- NOTE | 2022-02-15 08:08 | HMH.DCSUM ---
General - General Admission date:: 02/14/22 Discharge date: 02/15/22 HPI HPI: 47-year-old [facility] who is admitted there because of ongoing multiple sclerosis with essentially wheelchair-bound/bedbound status. She had been fairly stable until about 3 to 4 weeks ago when she stopped eating. There are several multiple psychological overlays, a good friend of hers had recently been discharged from the jail and she has taken this very hard and has told the nursing staff that she is going to stop eating. She is also had some fever chills. Her family is trying to help with bringing food but this has not really done much. We have started mirtazapine but only a couple of days ago when made aware of the situation. She became very listless, febrile and dyspneic late yesterday evening was sent to the emergency department. In the ER she was found to be hypercalcemic and have evidence of dehydration. Evidence of UTI, admitted to hospital for IV fluids and antibiotics. Hospital Course Hospital Course: Patient was admitted, given IV fluids, initially treated with ceftriaxone. Hypercalcemia resolved. Leukocytosis improved slightly. Patient improved dramatically from a symptomatic and neurologic perspective and really the following day was back to her normal self. She well overnight and this morning wishes to go back to the jail although no real desire that she expressed in the office to go back with her who lives here in town. We had a long discussion about this. Her has struggled in the past with alcoholism for many years they were homeless. Her family and her do not have any kind of relationship and I am extremely concerned that even though she is not pleased with her family's choices for her that going back with her and would be extremely socially disruptive and get her back into a situation of homelessness and medical endangerment. She will continue to think about this. Regardless in the meantime she will go back to [facility]. Urine culture was an organism that was resistant to ceftriaxone but sensitive to Levaquin, she will take this daily for the next 7 days. I like a repeat urine culture in 10 days. Her potassium was slightly low today but she is eating well. Plan will be to supplement with potassium orally for the next week and I would like a BMP and CBC in 1 week. In regards to her eating -- she promises me she will eat better. I like her to get boost breeze supplements, 2 bottles or boxes with each meal. We will continue mirtazapine 15 mg daily. In regards to urine issues. Given urinary retention urology had ordered in and out caths 4 times daily. This is very painful for the patient and she is very resistant to this. We tried at the nursing windowing down on the frequency but bladder scan showed lots of retention. I would like her to have in and out catheterization once, around 2 or 3:00 in the afternoon-for now and we will monitor and see how this goes. Objective Vital signs: Temp Pulse Resp BP Pulse Ox 98.4 F 84 16 95/58 L 100 02/15/22 03:58 02/15/22 03:58 02/15/22 03:58 02/15/22 03:58 02/15/22 03:58 no acute distress - *Routine HEENT Exam Head: Present: normocephalic Eye: Present: EOMI, PERRL ENT: Present: mucous membranes moist - *Routine Neck Exam Present: supple - *Routine Respiratory Exam Present: CTA bilaterally - *Routine Cardiovascular Exam Present: RRR - *Routine Abdominal Exam Present: soft, normoactive bowel sounds. Absent: tenderness - *Routine Extremities Exam Absent: cyanosis, clubbing, edema Comments: Neurologic contractures as previously noted. Extremities are warm and well-perfused - *Routine Skin Exam Present: warm. Absent: rash - *Routine Neurological Exam Present: alert Repetitive speech pattern/stuttering. Cognitive impairment, neurologic contractures, multiple scler
[2022-02-15 08:23] LABS: Coronavirus 19, PCR Not Detected (NotDetected); Influenza A, PCR Not Detected (NotDetected); Influenza B, PCR Not Detected (NotDetected)
--- NOTE | 2022-02-15 09:04 | PC.NURSE ---
Dr Fragoso would like pt have potassium 20meq po once daily x1 week on dc
--- NOTE | 2022-02-15 10:14 | PC.NURSE ---
I have attempted to call report multiple times but unable to get an answer at [facility]; I reported it Lottie in care management who will attempt to get in contact with someone
--- NOTE | 2022-02-15 10:28 | PC.NURSE ---
Milind from [facility] called, report jojom; [facility] notified for transport, state they will be here shortly
--- NOTE | 2022-02-16 14:29 | CARE MANAGER ---
Contacted [facility] and spoke with nurse. States patient still isn't eating much and had the idea she was leaving [facility] and going home with an ex-. She was upset that she didn't leave. They will continue to monitor and deny any questions or concerns. SHERI Lucas
== END 2022-02-15 11:02 ==
LOC: ER 20:01 → ICU 02-14 01:25 → 2ND 02-14 02:34
PROVIDERS: Admitting Provider Emergency Medicine; Emergency Provider Emergency Medicine; PCP Internal Medicine Adolescent Medicine; Visit Provider Internal Medicine Adolescent Medicine
DX: N39.0 Urinary tract infection, site not specified (principal); G35 Multiple sclerosis; Z87.891 Personal history of nicotine dependence; Z99.3 Dependence on wheelchair; Z68.1 Body mass index [BMI] 19.9 or less, adult; E86.0 Dehydration; E83.52 Hypercalcemia; E44.1 Mild protein-calorie malnutrition; G31.84 Mild cognitive impairment of uncertain or unknown etiology; Z63.8 Other specified problems related to primary support group; Z20.822 Contact with and (suspected) exposure to COVID-19
CPT/HCPCS: 36415; 71045; 80048; 80053; 81001; 83605; 83690; 84443; 84484; 85007; 85025; 87040; 87086; 87088; 87186; 99285; C9803; G0378; J0696; U0003; U0005

== ENCOUNTER → 2022-02-25 19:59 | Outpatient (CLI) | payer MEDICAID, SELFPAY | PROVIDERS: PCP Internal Medicine Adolescent Medicine; Visit Provider Internal Medicine Adolescent Medicine | DX: Z87.440 Personal history of urinary (tract) infections (principal); B37.49 Other urogenital candidiasis | CPT/HCPCS: 87086 ==

== ENCOUNTER 2022-03-13 17:01 | Emergency (ER) | payer MEDICAID, SELFPAY ==
[2022-03-13 17:01] VITALS: BP 104/77; PULSE 102; RESP 18; TEMP 37.4; O2SAT 97; BMI 21.9
--- NOTE | 2022-03-13 17:07 | PC.NURSE ---
LUAN JAMES at
--- NOTE | 2022-03-13 17:09 | CT_ITS ---
PROCEDURE INFORMATION: Exam: CT Head Without Contrast Exam date and time: 03/13/2022 5:21 PM Age: 47 years old Clinical indication: Injury or trauma; Blunt trauma (contusions or hematomas); Consciousness not specified; Injury date: 03/13/22; Injury details: Fall from wheelchair today TECHNIQUE: Imaging protocol: Computed tomography of the head without contrast. Radiation optimization: All CT scans at this facility use at least one of these dose optimization techniques: automated exposure control; mA and/or kV adjustment per patient size (includes targeted exams where dose is matched to clinical indication); or iterative reconstruction. COMPARISON: MR HEAD/BRAIN WO CON 02/23/2021 11:37 AM FINDINGS: Brain: Persistent diffuse prominence of the ventricular system. No intracranial hemorrhage. No evidence of acute territorial infarct or cerebral edema. Mild prominence of the cortical sulci consistent with age-appropriate intracerebral volume loss. Periventricular white matter tract changes consistent with microvascular disease again demonstrated. No mass effect or midline shift. Cerebral ventricles: No ventriculomegaly. Cerebral ventricles: No ventriculomegaly. Paranasal sinuses: Visualized sinuses are unremarkable. No fluid levels. Mastoid air cells: Visualized mastoid air cells are well aerated. Bones/joints: Unremarkable. No acute fracture. Soft tissues: Unremarkable. IMPRESSION: No evidence of acute intracranial abnormality.
--- NOTE | 2022-03-13 17:09 | XR_ITS ---
PROCEDURE INFORMATION: Exam: XR Left Knee Exam date and time: 03/13/2022 5:39 PM Age: 47 years old Clinical indication: Injury or trauma; Blunt trauma; Knee; Left; Injury date: 03/13/22; Injury details: Fall from wheelchair today TECHNIQUE: Imaging protocol: Radiologic exam of the Left knee. Views: 3 views. COMPARISON: No relevant prior studies available. FINDINGS: Bones/joints: Normal. Soft tissues: Normal. IMPRESSION: No evidence of acute osseous injury.
--- NOTE | 2022-03-13 17:16 | HMH.EDFALL ---
ED Disposition Clinical Impression: Accidental fall Qualifiers: Encounter type: initial encounter Qualified Code(s): W19.XXXA - Unspecified fall, initial encounter Closed head injury Qualifiers: Encounter type: initial encounter Qualified Code(s): S09.90XA - Unspecified injury of head, initial encounter Disposition: Home, Self-Care Condition on Discharge: Good Instructions: How to Prevent Falls - Critical Care Critical Care Time: No Attestation: On , the high probability of a clinically significant, sudden or life threatening deterioration of the following system(s) required my full and direct attention, intervention and personal management. The time I documented below is in addition to time spent performing reported procedures but includes the following listed in this critical care notation. Medical Decision Making - Medical Records Medical records reviewed: Yes: I reviewed the patient's medical records. - Arpan Inquiry Pt receiving controlled substance: No Vital Signs: 03/13/22 17:01 03/13/22 18:00 Temperature 99.3 F Temperature Source Oral Pulse Rate 96 H Pulse Rate [Left Radial] 102 H Respiratory Rate 18 Blood Pressure 119/79 Blood Pressure [Right Arm] 104/77 L Blood Pressure Mean 88 Blood Pressure Mean [Right Arm] 86 Blood Pressure Source [Right Arm] Automatic Cuff Blood Pressure Position [Right Arm] Sitting 02 Sat by Pulse Oximetry 97 100 Oxygen Delivery Method Room Air - Radiology Data #1 Image(s): Hip, Knee Image Reviewed: Yes I reviewed the patient's radiology results, Yes I reviewed the patient's radiology image, Yes I have reviewed radiologist's interpretation Preliminary Findings: Normal/NAD, No Fracture Seen - CT Data CT Scan: Head Time Received: 18:[address] Reviewed: Yes: I have reviewed the patient's CT results, I have viewed the radiologist's interpretation Preliminary Findings: Normal/NAD - Reevaluation(s) Time: 18:38 Reevaluation #1: On reevaluation, patient is feeling better. There is no evidence of fracture. Patient is to follow-up with PCP in 48 hours. Given strict return precautions. Verbalized understanding. Medical Decision Narrative: 47-year-old female presented to the emergency department after accidental fall. Complaining of some hip and knee pain. Imaging will be obtained. Fall HPI - General Chief Complaint: Fall Stated Complaint: fall Time Seen by Provider: 03/13/22 17:10 Mode of Arrival: EMS Limitations: Physical Limitations Description of Symptoms (Recalled from ER Triage Doc. by RN): c/o left hip pain and headache after an unwitnessed fall at [facility]. PT was found face first on the floor. HX of chronic hip pain but she is having a throbbing pain - History of Present Illness HPI Narrative: 47-year-old female presented to the emergency department after accidental fall. Patient states that she was getting into her wheelchair when she accidentally missed. She fell backwards and landed on her left side. She states that she did hit her head, however did not lose consciousness. She is complaining of some left hip pain and knee pain. States is dull in nature. Worse when she tries to move. Patient does not have any headache or change in vision. No focal weakness. No abdominal pain or vomiting. No chest pain or shortness of breath. No fevers or chills. - Related Data Home Medications Medication Instructions Recorded Confirmed baclofen 10 mg tablet 10 mg PO BIDP PRN 01/10/22 02/14/22 escitalopram oxalate 10 mg tablet 10 mg PO HS 01/10/22 02/14/22 ibuprofen 400 mg tablet 400 mg PO Q6HP PRN 01/10/22 02/14/22 levetiracetam 1,000 mg tablet 1,000 mg PO BID 01/10/22 02/14/22 loperamide-simethicone 2 mg-125 mg 1 tab PO Q3HP PRN 01/10/22 02/14/22 tablet ondansetron HCl 4 mg tablet 4 mg PO Q8HP PRN 01/10/22 02/14/22 propranolol 10 mg tablet 10 mg PO BID 01/10/22 02/14/22 Mirtazapine 7.5 mg PO HS 02/14/22 02/14/22 cephALEXin
--- NOTE | 2022-03-13 17:17 | XR_ITS ---
PROCEDURE INFORMATION: Exam: XR Bilateral Hips Exam date and time: 03/13/2022 5:39 PM Age: 47 years old Clinical indication: Injury or trauma; Blunt trauma (contusions or hematomas); Bilateral; Hip and pelvic region; Injury date: 03/13/22; Injury details: Fall from wheelchair today TECHNIQUE: Imaging protocol: Radiologic exam of the bilateral hips. Views: 2 views of hips with pelvis when performed. COMPARISON: CT ABDOMEN PELVIS WO CON 12/25/2021 8:53 PM FINDINGS: Bones/joints: Mild-moderate degenerative changes bilateral hip joints Soft tissues: Unremarkable. IMPRESSION: No evidence of acute osseous injury.
--- NOTE | 2022-03-13 17:22 | PC.NURSE ---
Pt being taken to CT
--- NOTE | 2022-03-13 17:23 | PC.NURSE ---
PT TO RADIOLOGY AT THIS TIME
--- NOTE | 2022-03-13 17:42 | PC.NURSE ---
Back from CT
--- NOTE | 2022-03-13 17:42 | PC.NURSE ---
PT RETURNED FROM XR
[2022-03-13 18:00] VITALS: BP 119/79; PULSE 96; O2SAT 100
[2022-03-13 18:31] VITALS: BP 119/81; PULSE 99; O2SAT 100
--- NOTE | 2022-03-13 18:51 | PC.WOUNDNOTE ---
report called to pooja pichardo
--- NOTE | 2022-03-13 18:54 | PC.NURSE ---
joann notified of transfer to [facility]
[2022-03-13 19:10] VITALS: BP 121/83; PULSE 99; RESP 18; TEMP 36.7; O2SAT 100
== END 2022-03-13 19:38 | disposition home or self-care (01) ==
PROVIDERS: Emergency Provider Emergency Medicine; PCP Internal Medicine Adolescent Medicine
DX: M25.552 Pain in left hip (principal); M25.562 Pain in left knee; G43.909 Migraine, unspecified, not intractable, without status migrainosus; G40.909 Epilepsy, unspecified, not intractable, without status epilepticus; G35 Multiple sclerosis; M19.90 Unspecified osteoarthritis, unspecified site; F32.A Depression, unspecified; F41.9 Anxiety disorder, unspecified; Z79.1 Long term (current) use of non-steroidal anti-inflammatories (NSAID); Z79.899 Other long term (current) drug therapy; Z91.040 Latex allergy status; Z88.8 Allergy status to other drugs, medicaments and biological substances; Z87.891 Personal history of nicotine dependence; W07.XXXA Fall from chair, initial encounter
CPT/HCPCS: 70450; 73521; 73562; 99285

== ENCOUNTER → 2022-04-27 16:39 | Outpatient (CLI) | payer MEDICAID, SELFPAY | PROVIDERS: PCP Internal Medicine Adolescent Medicine; Visit Provider Internal Medicine Adolescent Medicine | DX: N39.0 Urinary tract infection, site not specified (principal) ==

== ENCOUNTER → 2022-04-29 14:47 | Outpatient (CLI) | payer MEDICAID, SELFPAY | PROVIDERS: PCP Internal Medicine Adolescent Medicine; Visit Provider Internal Medicine Adolescent Medicine | DX: N90.89 Other specified noninflammatory disorders of vulva and perineum (principal); B96.4 Proteus (mirabilis) (morganii) as the cause of diseases classified elsewhere | CPT/HCPCS: 87070; 87077; 87186; 87205 ==

== ENCOUNTER → 2022-04-30 00:06 | Outpatient (CLI) | payer MEDICAID, SELFPAY ==
[2022-04-30 00:36] LABS: Basophils # 0.2 K/mm3 (0-0.2); Mean Corpuscular Volume 92.2 fl (81-99)
[2022-04-30 00:44] LABS: Hematocrit 46.6 % (37.0-47.0); Hemoglobin 15.2 g/dL (12.2-16.2); Lymphocytes # 3.9 K/mm3 (0.7-4.5); Lymphocytes % 19.4 % (10-50); Mean Corpuscular HGB Conc 32.6 g/dL (31.8-35.4); Mean Corpuscular Hemoglobin 30.1 pg (27.0-31.2); Mean Platelet Volume 8.2 fl (7.4-10.4); Monocytes # 1.3 K/mm3 (0.1-1.0); Monocytes % 6.4 % (1.7-9.3); Neutrophils # 14.7 K/mm3 (1.8-7.8); Neutrophils % 73.2 % (37.0-80.0); Red Blood Count 5.06 M/mm3 (4.20-5.40); Red Cell Distribution Width 13.2 % (11.5-17.5)
[2022-04-30 00:45] LABS: Platelet Count 874 K/mm3 (142-424)
[2022-04-30 00:47] LABS: MANUAL DIFFERENTIAL MANUAL DIFFERENTIAL (MANUAL DIFF)
[2022-04-30 01:02] LABS: Chloride 101 mmol/L (98-107); Potassium 5.1 mmoL/L (3.5-5.1); Sodium 143 mmol/L (136-145)
[2022-04-30 01:05] LABS: Anion Gap 24.1 mEq/L (5-15); Blood Urea Nitrogen 31 mg/dl (7-17); Calcium 9.7 mg/dl (8.4-10.2); Carbon Dioxide 23 mmol/L (22.0-30.0); Estimated Glomerular Filt Rate 68 ml/min (>60); GFR (African American) 82 ML/MIN (>60); Glucose 130 mg/dl (74-100); Lymphocytes % 16 % (10-50); Neutrophils % 77 % (42-76); Platelet Estimate Normal; RBC Morphology Normal; Total Cells Counted 100
== END ==
PROVIDERS: PCP Internal Medicine Adolescent Medicine; Visit Provider Internal Medicine Adolescent Medicine
DX: G35 Multiple sclerosis (principal)
CPT/HCPCS: 80048; 85007; 85025

== ENCOUNTER → 2022-05-12 10:36 | Outpatient (CLI) | payer MEDICAID, SELFPAY ==
[2022-05-12 10:53] LABS: Microscopic, Urine URINE MICROSCOPIC (MICROSCOPIC)
[2022-05-12 11:09] LABS: Appearance,Urine TURBID (Clear); Bilirubin,Urine Negative (Negative); Blood, Urine 2+ (Negative); Color,Urine YELLOW (Yellow); Glucose,Urine (UA) Negative (Negative); Ketones,Urine Negative (Negative); Leukocyte Esterase,Urine 3+ (Negative); Nitrate,Urine POSITIVE (Negative); Protein,Urine 1+ (Negative); Specific Gravity, Urine 1.015 (1.005-1.030); Urobilinogen,Urine 0.2 EU/dl (0.2)
[2022-05-12 11:34] LABS: Bacteria,Urine 1+ /lpf
== END ==
PROVIDERS: Visit Provider Internal Medicine Adolescent Medicine
DX: N39.0 Urinary tract infection, site not specified (principal); B96.4 Proteus (mirabilis) (morganii) as the cause of diseases classified elsewhere
CPT/HCPCS: 81001; 87086; 87088; 87186

== ENCOUNTER → 2023-02-06 13:23 | Outpatient (CLI) | payer MEDICAID, SELFPAY ==
[2023-02-06 14:12] LABS: Microscopic, Urine URINE MICROSCOPIC (MICROSCOPIC)
[2023-02-06 15:07] LABS: Bilirubin,Urine Negative (Negative); Blood, Urine 3+ (Negative); Color,Urine YELLOW (Yellow); Glucose,Urine (UA) Negative (Negative); Ketones,Urine Negative (Negative); Leukocyte Esterase,Urine 2+ (Negative); Nitrate,Urine Negative (Negative); Protein,Urine 2+ (Negative); Specific Gravity, Urine 1.025 (1.005-1.030); Urobilinogen,Urine 0.2 EU/dl (0.2)
[2023-02-06 15:08] LABS: Appearance,Urine Cloudy (Clear)
[2023-02-06 15:14] LABS: Bacteria,Urine 2+ /lpf; Squamous Epithelial Cell,Urine Occasional #/hpf (0-5); WBC,Urine TNTC #/hpf (0-3)
[2023-02-06 15:31] LABS: Basophils # 0.1 K/mm3 (0-0.2); Basophils % 0.3 % (0.1-2.0); Chloride 104 mmol/L (98-107); Eosinophils # 0.2 K/mm3 (0.0-0.4); Eosinophils % 1.1 % (0.1-12.0); Hematocrit 38.8 % (37.0-47.0); Hemoglobin 12.2 g/dL (12.2-16.2); Lymphocytes # 4.2 K/mm3 (0.7-4.5); Lymphocytes % 24.2 % (10-50); Mean Corpuscular HGB Conc 31.5 g/dL (31.8-35.4); Mean Corpuscular Hemoglobin 29.9 pg (27.0-31.2); Mean Platelet Volume 8.1 fl (7.4-10.4); Monocytes # 0.8 K/mm3 (0.1-1.0); Monocytes % 4.6 % (1.7-9.3); Neutrophils # 12.2 K/mm3 (1.8-7.8); Neutrophils % 69.8 % (37.0-80.0); Platelet Count 506 K/mm3 (142-424); Red Blood Count 4.09 M/mm3 (4.20-5.40); Red Cell Distribution Width 13.2 % (11.5-17.5); White Blood Count 17.4 K/mm3 (4.8-10.8)
[2023-02-06 15:32] LABS: Potassium 3.7 mmoL/L (3.5-5.1); Sodium 140 mmol/L (136-145)
[2023-02-06 15:34] LABS: Blood Urea Nitrogen 9 mg/dl (7-17); Estimated Glomerular Filt Rate 133 ml/min (>60); GFR (African American) 161 ML/MIN (>60); MANUAL DIFFERENTIAL MANUAL DIFFERENTIAL (MANUAL DIFF)
[2023-02-06 15:35] LABS: Anion Gap 15.7 mEq/L (5-15); Calcium 8.6 mg/dl (8.4-10.2); Carbon Dioxide 24 mmol/L (22.0-30.0); Glucose 72 mg/dl (74-100)
[2023-02-06 16:37] LABS: Eosinophils % 1 % (0-3); Lymphocytes % 27 % (10-50); Monocytes % 2 % (2-9); Neutrophils % 70 % (42-76); Platelet Estimate Slight Increase; RBC Morphology Normal; Total Cells Counted 100
[2023-02-09 14:28] LABS: Levetiracetam (Keppra) 10.8 ug/mL (10.0-40.0)
== END ==
PROVIDERS: PCP Internal Medicine Adolescent Medicine; Visit Provider Internal Medicine Adolescent Medicine
DX: N39.0 Urinary tract infection, site not specified (principal); B96.89 Other specified bacterial agents as the cause of diseases classified elsewhere
CPT/HCPCS: 80048; 80177; 81001; 85007; 85025; 87086; 87088; 87186

== ENCOUNTER 2023-02-16 23:54 | Emergency (ER) | payer MEDICAID, SELFPAY ==
[2023-02-16 23:58] VITALS: BP 123/82; PULSE 78; RESP 16; TEMP 36.5; O2SAT 97; BMI 24.4
--- NOTE | 2023-02-16 23:59 | XR_ITS ---
PROCEDURE INFORMATION: Exam: XR Pelvis Exam date and time: 02/17/2023 12:38 AM Age: 48 years old Clinical indication: Injury or trauma; Fall; Blunt trauma (contusions or hematomas); Bilateral; Pelvic region TECHNIQUE: Imaging protocol: Radiologic exam of the pelvis. Views: 1 or 2 view. COMPARISON: CT ABDOMEN PELVIS WO CON 17/02/2023 00:33 FINDINGS: Bones/joints: No acute fracture or dislocation. Soft tissues: Unremarkable. IMPRESSION: No acute fracture or dislocation.
--- NOTE | 2023-02-16 23:59 | CT_ITS ---
PROCEDURE INFORMATION: Exam: CT Abdomen And Pelvis Without Contrast Exam date and time: 02/17/2023 12:33 AM Age: 48 years old Clinical indication: Injury or trauma; Fall TECHNIQUE: Imaging protocol: Computed tomography of the abdomen and pelvis without contrast. Radiation optimization: All CT scans at this facility use at least one of these dose optimization techniques: automated exposure control; mA and/or kV adjustment per patient size (includes targeted exams where dose is matched to clinical indication); or iterative reconstruction. REPORTING DATA: Count of CT and Cardiac NM exams in prior 12 months: This patient has received [address] and 0 known cardiac nuclear medicine studies in the 12 months prior to the current study. COMPARISON: CT ABDOMEN PELVIS WO CON 25/12/2021 20:53 FINDINGS: Liver: Normal. No mass. Gallbladder and bile ducts: Normal. No calcified stones. No ductal dilation. Pancreas: Normal. No ductal dilation. Spleen: Normal. No splenomegaly. Adrenal glands: Normal. No mass. Kidneys and ureters: There is a curvilinear calcification measuring 2.3 cm in length in the mid to distal left ureter example image 100 series 4. There is 9 mm calculus in the distal left ureter. Bilateral hydronephrosis extending to the urinary bladder. Nonobstructing bilateral nephrolithiasis. Stomach and bowel: Moderate to large amount of stool throughout the colon. Appendix: No evidence of appendicitis. Intraperitoneal space: Unremarkable. No free air. No significant fluid collection. Vasculature: Unremarkable. No abdominal aortic aneurysm. Lymph nodes: Unremarkable. No enlarged lymph nodes. Urinary bladder: Urinary bladder wall calcifications are new compared to prior study. Irregular wall thickening is likely coarsened trabeculation, favored to be chronic. Reproductive: Status post hysterectomy. Small amount of fluid in the vaginal canal is noted. Bones/joints: Unremarkable. No acute fracture. Soft tissues: Unremarkable. Other findings: Please see separate report for CT chest. Stigmata of old granulomatous disease. IMPRESSION: 1. No acute intra-abdominal or intrapelvic organ injury. 2. Urinary bladder wall calcifications are new compared to prior study. Irregular wall thickening is likely coarsened trabeculation, favored to be chronic. However, urinary bladder wall calcifications can occur due to malignancy. Consider cystoscopy as clinically warranted. 3. There is 9 mm calculus in the distal left ureter. 4. Bilateral hydronephrosis extending to the urinary bladder. This could be due to obstructing urinary bladder mass, due to reflux, or chronic urinary bladder distention. 5. Nonobstructing bilateral nephrolithiasis.
--- NOTE | 2023-02-16 23:59 | CT_ITS ---
PROCEDURE INFORMATION: Exam: CT Chest Without Contrast; Diagnostic Exam date and time: 02/17/2023 12:31 AM Age: 48 years old Clinical indication: Injury or trauma; Fall TECHNIQUE: Imaging protocol: Diagnostic computed tomography of the chest without contrast. Radiation optimization: All CT scans at this facility use at least one of these dose optimization techniques: automated exposure control; mA and/or kV adjustment per patient size (includes targeted exams where dose is matched to clinical indication); or iterative reconstruction. REPORTING DATA: Count of CT and Cardiac NM exams in prior 12 months: This patient has received [address] and 0 known cardiac nuclear medicine studies in the 12 months prior to the current study. COMPARISON: CR XR CHEST PORTABLE 06/12/2022 16:20 FINDINGS: Lungs: Posterior atelectasis. Pleural spaces: Trace left pleural effusion. Heart: No coronary arterial calcifications. No cardiomegaly. No pericardial effusion. Lymph nodes: Unremarkable. No enlarged lymph nodes. Vasculature: Unremarkable. No aortic aneurysm. Bones/joints: Unremarkable. No acute fracture. Soft tissues: Unremarkable. Other findings: Please see separate report for abdomen/pelvis. Stigmata of old granulomatous disease. IMPRESSION: 1. No acute intrathoracic organ injury. 2. Trace left pleural effusion.
--- NOTE | 2023-02-16 23:59 | XR_ITS ---
PROCEDURE INFORMATION: Exam: XR Chest Exam date and time: 02/17/2023 12:38 AM Age: 48 years old Clinical indication: Injury or trauma; Fall; Blunt trauma (contusions or hematomas) TECHNIQUE: Imaging protocol: Radiologic exam of the chest. Views: 1 view. COMPARISON: CT CHEST WO CON 17/02/2023 00:31 FINDINGS: Lungs: Stigmata of old granulomatous disease. Pleural spaces: Unremarkable. No pleural effusion. No pneumothorax. Heart/Mediastinum: Unremarkable. No cardiomegaly. Bones/joints: Unremarkable. IMPRESSION: No acute intrathoracic organ injury.
--- NOTE | 2023-02-17 | CT_ITS ---
PROCEDURE INFORMATION: Exam: CT Cervical Spine Without Contrast Exam date and time: 02/17/2023 12:24 AM Age: 48 years old Clinical indication: Injury or trauma; Fall; Additional info: Trauma, critical injury suspected TECHNIQUE: Imaging protocol: Computed tomography of the cervical spine without contrast. Radiation optimization: All CT scans at this facility use at least one of these dose optimization techniques: automated exposure control; mA and/or kV adjustment per patient size (includes targeted exams where dose is matched to clinical indication); or iterative reconstruction. REPORTING DATA: Count of CT and Cardiac NM exams in prior 12 months: This patient has received [address] and 0 known cardiac nuclear medicine studies in the 12 months prior to the current study. COMPARISON: MR CERVICAL SPINE WO/W CON 24/03/2020 09:48 FINDINGS: Bones/joints: No acute fracture. Normal alignment. No significant disc bulge or herniation. No severe spinal canal stenosis. No significant neural foraminal narrowing. Lungs: Lung apices are normal. Soft tissues: Unremarkable. Other findings: Stigmata of old granulomatous disease. IMPRESSION: No acute fracture or malalignment of the cervical spine.
--- NOTE | 2023-02-17 | CT_ITS ---
PROCEDURE INFORMATION: Exam: CT Thoracic Spine Without Contrast Exam date and time: 02/17/2023 12:26 AM Age: 48 years old Clinical indication: Injury or trauma; Additional info: Trauma, critical injury suspected TECHNIQUE: Imaging protocol: Computed tomography of the thoracic spine without contrast. Radiation optimization: All CT scans at this facility use at least one of these dose optimization techniques: automated exposure control; mA and/or kV adjustment per patient size (includes targeted exams where dose is matched to clinical indication); or iterative reconstruction. REPORTING DATA: Count of CT and Cardiac NM exams in prior 12 months: This patient has received [address] and 0 known cardiac nuclear medicine studies in the 12 months prior to the current study. COMPARISON: SPTHORWO MR thoracic spine wo con 02/05/2019 13:33 FINDINGS: Bones/joints: No acute fracture. Normal alignment. No significant disc bulge or herniation. No severe spinal canal stenosis. No significant neural foraminal narrowing. Soft tissues: Unremarkable. Other findings: Please see separate report for CT chest. IMPRESSION: No acute fracture or malalignment of the thoracic spine.
--- NOTE | 2023-02-17 | CT_ITS ---
PROCEDURE INFORMATION: Exam: CT Head Without Contrast Exam date and time: 02/17/2023 12:19 AM Age: 48 years old Clinical indication: Injury or trauma; Fall; Additional info: Trauma, critical injury suspected TECHNIQUE: Imaging protocol: Computed tomography of the head without contrast. Radiation optimization: All CT scans at this facility use at least one of these dose optimization techniques: automated exposure control; mA and/or kV adjustment per patient size (includes targeted exams where dose is matched to clinical indication); or iterative reconstruction. REPORTING DATA: Count of CT and Cardiac NM exams in prior 12 months: This patient has received [address] and 0 known cardiac nuclear medicine studies in the 12 months prior to the current study. COMPARISON: CT HEAD/BRAIN WO CON 03/13/2022 5:21 PM FINDINGS: Brain: Moderate atrophy. No intracranial hemorrhage. No mass. Several scattered foci of decreased attenuation within periventricular/subcortical white matter. No edema. Cerebral ventricles: No hydrocephalus. Mastoid air cells: No significant effusion. Bones/joints: No calvarial fracture. Soft tissues: Unremarkable. IMPRESSION: 1. No intracranial hemorrhage. 2. Probable chronic microvascular ischemic changes. 3. See facial bone CT report for additional details.
--- NOTE | 2023-02-17 | CT_ITS ---
PROCEDURE INFORMATION: Exam: CT Maxillofacial Without Contrast Exam date and time: 02/17/2023 12:21 AM Age: 48 years old Clinical indication: Injury or trauma; Fall; Additional info: Trauma, critical injury suspected TECHNIQUE: Imaging protocol: Computed tomography of the face without contrast. Radiation optimization: All CT scans at this facility use at least one of these dose optimization techniques: automated exposure control; mA and/or kV adjustment per patient size (includes targeted exams where dose is matched to clinical indication); or iterative reconstruction. REPORTING DATA: Count of CT and Cardiac NM exams in prior 12 months: This patient has received [address] and 0 known cardiac nuclear medicine studies in the 12 months prior to the current study. COMPARISON: No relevant prior studies available. FINDINGS: Orbital cavities: Unremarkable as visualized. Bones/joints: No acute fracture. Degenerative changes of cervical spine. Paranasal sinuses: Unremarkable. No air-fluid levels. Soft tissues: Unremarkable. IMPRESSION: No fracture.
--- NOTE | 2023-02-17 | CT_ITS ---
PROCEDURE INFORMATION: Exam: CT Lumbar Spine Without Contrast Exam date and time: 02/17/2023 12:28 AM Age: 48 years old Clinical indication: Injury or trauma; Fall; Additional info: Trauma, critical injury suspected TECHNIQUE: Imaging protocol: Computed tomography of the lumbar spine without contrast. Radiation optimization: All CT scans at this facility use at least one of these dose optimization techniques: automated exposure control; mA and/or kV adjustment per patient size (includes targeted exams where dose is matched to clinical indication); or iterative reconstruction. REPORTING DATA: Count of CT and Cardiac NM exams in prior 12 months: This patient has received [address] and 0 known cardiac nuclear medicine studies in the 12 months prior to the current study. COMPARISON: SPLUMBWO MR lumbar spine wo con 23/04/2018 15:02 FINDINGS: Bones/joints: No acute fracture. Normal alignment. No significant disc bulge or herniation. No severe spinal canal stenosis. No significant neural foraminal narrowing. Soft tissues: Unremarkable. Other findings: Please see separate report for abdomen/pelvis. IMPRESSION: No acute fracture or malalignment of the lumbar spine.
--- NOTE | 2023-02-17 00:07 | HMH.EDFALL ---
Discharge Plan Disposition Patient Disposition: Xfer Other Condition: Fair Chief Complaint: Fall Prescriptions Prescriptions: No Action propranolol 10 mg tablet 10 mg PO BID baclofen 10 mg tablet 10 mg PO BIDP PRN (Reason: muscle spasms from MS) levetiracetam [Keppra] 1,000 mg tablet 1,000 mg PO BID ibuprofen 400 mg tablet 400 mg PO Q6HP PRN (Reason: pain/fever) loperamide-simethicone 2-125 mg tablet 1 tab PO Q3HP PRN (Reason: Diarrhea) Rx Instructions: do not exceed 4 tabs in 24 hrs ondansetron HCl 4 mg tablet 4 mg PO Q8HP PRN (Reason: Nausea) sennosides [senna] 8.6 mg Tablet 8.6 mg PO HS aripiprazole [Abilify] 5 mg Tablet 5 mg PO HS lactulose 10 gram/15 mL (15 mL) Solution 15 ml PO DAILY megestrol 400 mg/10 mL (10 mL) Suspension 400 mg PO DAILY mirtazapine 7.5 MG tablet 7.5 mg PO HS Referrals Follow up/Referrals: Tai Fragoso MD [Primary Care Provider] - See instructions Clinical Impressions Clinical Impression: Calculus of distal left ureter UTI (urinary tract infection) Qualifiers: Urinary tract infection type: acute cystitis Hematuria presence: with hematuria Qualified Code(s): N30.01 - Acute cystitis with hematuria Closed head injury Qualifiers: Encounter type: initial encounter Qualified Code(s): S09.90XA - Unspecified injury of head, initial encounter Left parietal scalp hematoma Qualifiers: Encounter type: initial encounter Qualified Code(s): S00.03XA - Contusion of scalp, initial encounter Stand Alone Forms Stand Alone Forms: Transfer Record - ED Discharge ED Provider: Eloisa Paiz HPI General Chief Complaint: Fall Stated Complaint: fall Time Seen by Provider: 02/16/23 23:59 Mode of Arrival: EMS Source of Information: EMS Limitations: No Limitations History of Present Illness HPI Narrative: Patient is a 48-year-old female who has a history of MS and is bedridden coming from senior care secondary to fall out of bed. Patient was reaching for her phone fell out of bed and hit her left side of her head. She complains of pain in her head and neck pain. Patient was at unwitnessed fall. She was found on the floor. She denies any other complaints. She is alert and oriented x3. She is not on any anticoagulation or antiplatelet therapy. MD complaint: fall Onset (ago): minute(s) Fall from: out of bed Fall witnessed: no Place fall occurred: senior care/[facility] Loss of consciousness: none Length of LOC: minutes(s) Prolonged down time: no Symptoms prior to fall: none Location of injury: head Severity: mild Severity scale (1-10): 4 Quality: dull and aching Associated symptoms (after fall): headache Related Data Home Medications Medication Instructions Recorded Confirmed baclofen 10 mg tablet 10 mg PO BIDP PRN muscle spasms 01/10/22 02/17/23 from MS ibuprofen 400 mg tablet 400 mg PO Q6HP PRN pain/fever 01/10/22 02/17/23 levetiracetam 1,000 mg tablet 1,000 mg PO BID seizures 01/10/22 02/17/23 (Keppra) loperamide-simethicone 2 mg-125 mg 1 tab PO Q3HP PRN Diarrhea 01/10/22 02/17/23 tablet ondansetron HCl 4 mg tablet 4 mg PO Q8HP PRN Nausea 01/10/22 02/17/23 propranolol 10 mg tablet 10 mg PO BID Headache prevention 01/10/22 02/17/23 mirtazapine 7.5 mg tablet 7.5 mg PO HS Depression 02/14/22 02/17/23 aripiprazole 5 mg tablet (Abilify) 5 mg PO HS Depression 02/17/23 02/17/23 lactulose 10 gram/15 mL (15 mL) 15 ml PO DAILY Constipation 02/17/23 02/17/23 oral solution megestrol 400 mg/10 mL (10 mL) 400 mg PO DAILY Supplement 02/17/23 02/17/23 oral suspension sennosides 8.6 mg tablet (senna) 8.6 mg PO HS Constipation 02/17/23 02/17/23 Allergies Allergy/AdvReac Type Severity Reaction Status Date / Time calcium [CALCIUM] Allergy Unknown Verified 02/15/22 15:26 latex [LATEX] Allergy Unknown Verified 02/15/22 15:26 [facility] Disclaimer: The information contained in this s
[2023-02-17 01:21] LABS: Chloride 108 mmol/L (98-107); Sodium 143 mmol/L (136-145)
[2023-02-17 01:23] LABS: Alanine Aminotransferase 24 U/L (12-78); Aspartate Amino Transferase 31 U/L (14-36); Blood Urea Nitrogen 15 mg/dl (7-17); Creatinine Clearance Estimated 105 mL/min (50-200); Estimated Glomerular Filt Rate 108 ml/min (>60); GFR (African American) 130 ML/MIN (>60); Potassium 4.5 mmoL/L (3.5-5.1)
[2023-02-17 01:24] LABS: Albumin Level 3.7 g/dl (3.5-5.0); Albumin/Globulin Ratio 1.1 (1.1-1.8); Alkaline Phosphatase 90 U/L (38-126); Anion Gap 14.5 mEq/L (5-15); Bilirubin,Total 0.2 mg/dl (0.2-1.3); Calcium 9.6 mg/dl (8.4-10.2); Carbon Dioxide 25 mmol/L (22.0-30.0); Globulin 3.5 g/dL (1.3-3.2); Glucose 103 mg/dl (74-100); Total Protein,Serum 7.2 g/dl (6.3-8.2)
[2023-02-17 01:25] LABS: Basophils # 0.1 K/mm3 (0-0.2); Basophils % 0.5 % (0.1-2.0); Eosinophils # 0.2 K/mm3 (0.0-0.4); Eosinophils % 1.2 % (0.1-12.0); Hematocrit 38.9 % (37.0-47.0); Hemoglobin 12.2 g/dL (12.2-16.2); Lymphocytes # 5.4 K/mm3 (0.7-4.5); Lymphocytes % 27.1 % (10-50); Mean Corpuscular HGB Conc 31.4 g/dL (31.8-35.4); Mean Corpuscular Hemoglobin 29.8 pg (27.0-31.2); Mean Corpuscular Volume 94.8 fl (81-99); Mean Platelet Volume 7.5 fl (7.4-10.4); Monocytes # 0.7 K/mm3 (0.1-1.0); Monocytes % 3.6 % (1.7-9.3); Neutrophils # 13.3 K/mm3 (1.8-7.8); Neutrophils % 67.5 % (37.0-80.0); Platelet Count 500 K/mm3 (142-424); Red Blood Count 4.11 M/mm3 (4.20-5.40); Red Cell Distribution Width 12.8 % (11.5-17.5); White Blood Count 19.8 K/mm3 (4.8-10.8)
[2023-02-17 01:27] LABS: Activated Partial Thrombo Time 25.8 seconds (22.8-30.6); INR 0.92 (0.9-1.1)
[2023-02-17 01:28] LABS: Appearance,Urine CLOUDY (Clear); Bilirubin,Urine Negative (Negative); Blood, Urine TRACE-I (Negative); Color,Urine YELLOW (Yellow); Glucose,Urine (UA) Negative (Negative); Ketones,Urine Negative (Negative); Leukocyte Esterase,Urine 3+ (Negative); Microscopic, Urine URINE MICROSCOPIC (MICROSCOPIC); Nitrate,Urine Negative (Negative); PH,Urine 6.5 (5.0-8.5); Protein,Urine Negative (Negative); Urobilinogen,Urine 0.2 EU/dl (0.2)
[2023-02-17 01:30] VITALS: BP 111/69; PULSE 70; O2SAT 98
[2023-02-17 01:30] LABS: MANUAL DIFFERENTIAL MANUAL DIFFERENTIAL (MANUAL DIFF)
--- NOTE | 2023-02-17 01:37 | PC.NURSE ---
in room talking with patient
[2023-02-17 01:39] LABS: WBC,Urine 20-50 #/hpf (0-3)
[2023-02-17 01:40] LABS: Bacteria,Urine 2+ /lpf; RBC,Urine Occasional #/hpf (0-3)
[2023-02-17 01:42] LABS: Lymphocytes % 31 % (10-50); Monocytes % 3 % (2-9); Neutrophils % 66 % (42-76); Platelet Estimate Slight Increase; RBC Morphology Normal; Total Cells Counted 100
--- NOTE | 2023-02-17 01:45 | PC.NURSE ---
call placed to dr streeter re: admit vs transfer
--- NOTE | 2023-02-17 01:53 | PC.NURSE ---
o/p with at this time.
--- NOTE | 2023-02-17 02:02 | PC.NURSE ---
call placed to [facility]: to attempt to initiate transfer with patient to dr hewitt's services.
[2023-02-17 02:12] LABS: Procalcitonin 0.051 ng/mL (0.0-2.0)
--- NOTE | 2023-02-17 02:27 | PC.NURSE ---
SPOKE WITH HEATH AND UPDATED THEM ON PTS MEDICAL STATUS AND PLAN TO TRANSFER TO [facility]
--- NOTE | 2023-02-17 02:35 | PC.NURSE ---
lab in room drawing blood cultures at present
[2023-02-17 03:00] LABS: Lactic Acid 1.4 mmol/L (0.7-2.1)
--- NOTE | 2023-02-17 04:00 | PC.NURSE ---
[facility] here for transport of patient to [facility].
--- NOTE | 2023-02-17 04:19 | PC.NURSE ---
Report called to SHERI Foy at [facility]. Patient will go to room 141 on [facility]
[2023-02-17 04:22] VITALS: BP 118/79; PULSE 76; RESP 16; TEMP 36.6; O2SAT 96
[2023-02-17 06:13] LABS: POC Glucose,Bedside 136 (70-110)
== END 2023-02-17 04:10 | disposition other institution (70) ==
PROVIDERS: Emergency Provider Emergency Medicine; PCP Internal Medicine Adolescent Medicine
DX: S00.03XA Contusion of scalp, initial encounter (principal); N30.01 Acute cystitis with hematuria; R51.9 Headache, unspecified; M54.2 Cervicalgia; G35 Multiple sclerosis; W06.XXXA Fall from bed, initial encounter
CPT/HCPCS: 36415; 70450; 70486; 71045; 71250; 72125; 72128; 72131; 72170; 74176; 80053; 81001; 82962; 83605; 84145; 85007; 85025; 85610; 85730; 87040; 87086; 96374; 99285; J0696

== ENCOUNTER 2023-03-21 05:54 | Inpatient (IN) | payer MEDICAID, SELFPAY ==
[2023-03-21] VITALS (12 sets, daily range): BP systolic 89–140; BP diastolic 58–73; PULSE 108–160; RESP 16–34; TEMP 36.8–38.8; O2SAT 94–96; BMI 26.8; BMI 23.1
--- NOTE | 2023-03-21 05:45 | ECG_ITS ---
APPROVED REPORT Exam: Resting ECG HR:158 bpm ECG Measurements Heart Rate 158 AXES QRSd 63 QRS 34 QT 287 T 62 QTc 375 Conclusion SUPRAVENTRICULAR TACHYCARDIA NONSPECIFIC T-WAVE ABNORMALITY CRITICAL TEST RESULT UNCONFIRMED REPORT Electronically signed by : Tai Fragoso MD 03/23/2023 08:45:04
--- NOTE | 2023-03-21 05:52 | XR_ITS ---
PROCEDURE INFORMATION: Exam: XR Chest Exam date and time: 03/21/2023 3:21 AM Age: 48 years old Clinical indication: Fever TECHNIQUE: Imaging protocol: Radiologic exam of the chest. Views: 1 view. COMPARISON: CR XR CHEST PORTABLE 02/17/2023 12:38 AM FINDINGS: Lungs: Unremarkable. No consolidation. Pleural spaces: Unremarkable. No pleural effusion. No pneumothorax. Heart/Mediastinum: Unremarkable. No cardiomegaly. Bones/joints: Unremarkable. IMPRESSION: No acute findings.
[2023-03-21 06:00] LABS: Microscopic, Urine URINE MICROSCOPIC (MICROSCOPIC)
--- NOTE | 2023-03-21 06:00 | HMH.EDGENADL ---
Discharge Plan Disposition Patient Disposition: Home, Self-Care Chief Complaint: Fever Prescriptions Prescriptions: No Action propranolol 10 mg tablet 10 mg PO BID baclofen 10 mg tablet 10 mg PO BIDP PRN (Reason: muscle spasms from MS) levetiracetam [Keppra] 1,000 mg tablet 1,000 mg PO BID ibuprofen 400 mg tablet 400 mg PO Q6HP PRN (Reason: pain/fever) loperamide-simethicone 2-125 mg tablet 1 tab PO Q3HP PRN (Reason: Diarrhea) Rx Instructions: do not exceed 4 tabs in 24 hrs ondansetron HCl 4 mg tablet 4 mg PO Q8HP PRN (Reason: Nausea) sennosides [senna] 8.6 mg Tablet 8.6 mg PO HS aripiprazole [Abilify] 5 mg Tablet 5 mg PO HS lactulose 10 gram/15 mL (15 mL) Solution 15 ml PO DAILY megestrol 400 mg/10 mL (10 mL) Suspension 400 mg PO DAILY mirtazapine 7.5 MG tablet 7.5 mg PO HS Clinical Impressions Clinical Impression: Pyelonephritis, Sepsis Instructions Patient Instructions: DI for Altered Mental Status Discharge ED Provider: John Iniguez General Adult HPI General Chief complaint: Fever Stated complaint: ALTERED MENTAL STATUS Time Seen by Provider: 03/21/23 05:57 Mode of Arrival: EMS Source of Information: Patient Limitations: No Limitations Description of Symptoms (Recalled from ER Triage Doc. by RN): 48 YO FEMALE PRESENTS CC OF NOT ACTING RIGHT . FEVERISH, DIAPHORETIC, ELEVATED HR AT TIME OF TRIAGE. History of Present Illness HPI narrative: This is a 48-year-old female with history of MS, seizure disorder numerous UTIs, dehydration, living in [facility] presenting with altered mental status. Patient found to be altered, confused, not acting at her baseline at [facility]. Febrile, sweating, flushed. EMS was called out of concern for seizure. Related Data Home Medications Medication Instructions Recorded Confirmed baclofen 10 mg tablet 10 mg PO BIDP PRN muscle spasms 01/10/22 02/17/23 from MS ibuprofen 400 mg tablet 400 mg PO Q6HP PRN pain/fever 01/10/22 02/17/23 levetiracetam 1,000 mg tablet 1,000 mg PO BID seizures 01/10/22 02/17/23 (Keppra) loperamide-simethicone 2 mg-125 mg 1 tab PO Q3HP PRN Diarrhea 01/10/22 02/17/23 tablet ondansetron HCl 4 mg tablet 4 mg PO Q8HP PRN Nausea 01/10/22 02/17/23 propranolol 10 mg tablet 10 mg PO BID Headache prevention 01/10/22 02/17/23 mirtazapine 7.5 mg tablet 7.5 mg PO HS Depression 02/14/22 02/17/23 aripiprazole 5 mg tablet (Abilify) 5 mg PO HS Depression 02/17/23 02/17/23 lactulose 10 gram/15 mL (15 mL) 15 ml PO DAILY Constipation 02/17/23 02/17/23 oral solution megestrol 400 mg/10 mL (10 mL) 400 mg PO DAILY Supplement 02/17/23 02/17/23 oral suspension sennosides 8.6 mg tablet (senna) 8.6 mg PO HS Constipation 02/17/23 02/17/23 Allergies Allergy/AdvReac Type Severity Reaction Status Date / Time calcium [CALCIUM] Allergy Unknown Verified 02/15/22 15:26 latex [LATEX] Allergy Unknown Verified 02/15/22 15:26 [facility] Dis[facility]: The information contained in this section may have been updated after the patient was seen, as this information can be updated by other users. Social History Smoking Status: Unknown if ever smoked second hand exposure: No alcohol intake: former substance use type: marijuana current occupational status: disabled Travel in the last 8 weeks: None household members: other housing: [facility] current occupational exposures/hazards: No caffeine: Yes ROS Obtained: Yes All systems reviewed & no additional complaints except as documented Physical Exam General General appearance: in no apparent distress and lethargic Head Head exam: atraumatic and normocephalic Eye Eye exam: Present normal appearance, PERRL and EOMI; Absent scleral icterus or conjunctival redness ENT ENT exam: Present mucous membranes dry Neck Neck exam: Present normal inspection, full
[2023-03-21 06:05] LABS: Appearance,Urine TURBID (Clear); Bilirubin,Urine Negative (Negative); Blood, Urine 2+ (Negative); Color,Urine YELLOW (Yellow); Glucose,Urine (UA) Negative (Negative); Ketones,Urine Negative (Negative); Leukocyte Esterase,Urine 3+ (Negative); Nitrate,Urine Negative (Negative); PH,Urine 6.5 (5.0-8.5); Protein,Urine 3+ (Negative); Urobilinogen,Urine 0.2 EU/dl (0.2)
[2023-03-21 06:07] LABS: Basophils # 0.3 K/mm3 (0-0.2); Basophils % 0.6 % (0.1-2.0); Eosinophils # 0.1 K/mm3 (0.0-0.4); Eosinophils % 0.1 % (0.1-12.0); Hematocrit 46.3 % (37.0-47.0); Hemoglobin 14.6 g/dL (12.2-16.2); Lymphocytes % 8.3 % (10-50); Mean Corpuscular HGB Conc 31.6 g/dL (31.8-35.4); Mean Corpuscular Hemoglobin 29.5 pg (27.0-31.2); Mean Corpuscular Volume 93.3 fl (81-99); Mean Platelet Volume 7.6 fl (7.4-10.4); Monocytes # 1.6 K/mm3 (0.1-1.0); Monocytes % 3.2 % (1.7-9.3); Neutrophils # 43.2 K/mm3 (1.8-7.8); Neutrophils % 87.9 % (37.0-80.0); Platelet Count 607 K/mm3 (142-424); Red Blood Count 4.97 M/mm3 (4.20-5.40); Red Cell Distribution Width 13.8 % (11.5-17.5)
[2023-03-21 06:13] LABS: Chloride 112 mmol/L (98-107); Potassium 3.7 mmoL/L (3.5-5.1); Sodium 149 mmol/L (136-145)
[2023-03-21 06:15] LABS: Blood Urea Nitrogen 23 mg/dl (7-17); Creatinine Clearance Estimated 65 mL/min (50-200); Estimated Glomerular Filt Rate 53 ml/min (>60); GFR (African American) 65 ML/MIN (>60)
[2023-03-21 06:16] LABS: Alanine Aminotransferase 50 U/L (12-78); Albumin Level 3.9 g/dl (3.5-5.0); Albumin/Globulin Ratio 0.9 (1.1-1.8); Alkaline Phosphatase 118 U/L (38-126); Anion Gap 23.7 mEq/L (5-15); Aspartate Amino Transferase 48 U/L (14-36); Bilirubin,Total 0.4 mg/dl (0.2-1.3); Calcium 10.4 mg/dl (8.4-10.2); Carbon Dioxide 17 mmol/L (22.0-30.0); Globulin 4.4 g/dL (1.3-3.2); Glucose 151 mg/dl (74-100); Total Protein,Serum 8.3 g/dl (6.3-8.2)
[2023-03-21 06:26] LABS: Lipase 81 U/L (23-300)
[2023-03-21 06:33] LABS: T4 (Thyroxine) 12.2 ug/dl (5.53-11.0)
[2023-03-21 06:34] LABS: Troponin I 0.78 ng/ml (0.00-0.034)
[2023-03-21 06:40] LABS: Bacteria,Urine 1+ /lpf; WBC,Urine TNTC #/hpf (0-3)
[2023-03-21 06:47] LABS: Thyroid Stimulating Hormone 1.97 uIU/mL (0.465-4.68)
[2023-03-21 06:49] LABS: White Blood Count 49.1 K/mm3 (4.8-10.8)
[2023-03-21 06:50] LABS: MANUAL DIFFERENTIAL MANUAL DIFFERENTIAL (MANUAL DIFF)
--- NOTE | 2023-03-21 07:05 | PC.NURSE ---
Sarah Harley attempted to give report, per Diamond we don't have a bed for her yet . I received report and assumed care of this patient at this time.
[2023-03-21 07:09] LABS: Lymphocytes % 10 % (10-50); Monocytes % 1 % (2-9); Myelocytes % 1 (0-1); Neutrophils % 87 % (42-76); Platelet Estimate Moderate Increase; RBC Morphology Normal; Total Cells Counted 100
--- NOTE | 2023-03-21 07:20 | PC.NURSE ---
contacted supervisor steffen house about admission status
--- NOTE | 2023-03-21 07:48 | PC.NURSE ---
lead worker of housekeeping and laundry called ER with bed assignment
--- NOTE | 2023-03-21 07:52 | PC.NURSE ---
Called lab to check status of blood cultures d/t order placed at [address] Iniguez have not been received in by lab yet. S/w Ally in the lab who did have specimens but the right labels did not print out . She now received in blood cultures.
--- NOTE | 2023-03-21 07:54 | PC.NURSE ---
Addendum entered by Carmen Payne RN 03/21/23 09:48: 07:59 not 07:54 Original Note: received report from Bandar Tran RN. She stated she would bring pt up for me.
--- NOTE | 2023-03-21 07:55 | PC.NURSE ---
2nd visitor allowed back per charge. Attempted to call report, Tyrone Payne RN will call back shortly.
--- NOTE | 2023-03-21 07:56 | EXP.HP ---
History of Present Illness *Admission Date: 03/21/23 *Reason for visit:: confusion *History of present illness: Ms. Buitrago is a 48 year old female with a past medical history of multiple sclerosis, bedridden x 2 years, neurogenic bladder, recurrent UTI, nephrolithiasis, siezure disorder and migraines. She presents from [facility] because staff noticed that she was less responsive. Per ex-boyfriend at bedside she was her typical self yesterday; alert, recognizing family and oriented to person and place but not time. She presented to the ED with HR 160 and temperature of 102 degrees F. UA is with TNTC wbcs. She is lethargic and grimaces to sternal rub. Approximately a month ago the patient was transferred to [facility] for sepsis/uti and a left kidney stone; per the patient's sister and MPOA the patient had lithotripsy and a stent placed in the left ureter which was removed approximately 1 week ago; she also states that as of a few days ago she was transitioned from her chronic indwelling zhou to i/o catheterization TID. [facility] Disclaimer: The information contained in this section may have been updated after the patient was seen, as this information can be updated by other users. Social History Smoking Status: Unknown if ever smoked second hand exposure: No alcohol intake: former substance use type: marijuana current occupational status: disabled Travel in the last 8 weeks: None household members: other housing: [facility] current occupational exposures/hazards: No caffeine: Yes Review of Systems Review of Systems Review of systems:: unable to obtain (the patient is confused and doesn't respond to verbal cues) *Neurologic Neurologic: Reports confusion Psychiatric Psychiatric: Reports confusion Meds Home Medications and Allergies Home Medications Medication Instructions Recorded Confirmed Type baclofen 10 mg tablet 10 mg PO BIDP PRN muscle spasms 01/10/22 02/17/23 History from MS ibuprofen 400 mg tablet 400 mg PO Q6HP PRN pain/fever 01/10/22 02/17/23 History levetiracetam 1,000 mg tablet 1,000 mg PO BID seizures 01/10/22 02/17/23 History (David) loperamide-simethicone 2 mg-125 mg 1 tab PO Q3HP PRN Diarrhea 01/10/22 02/17/23 History tablet ondansetron HCl 4 mg tablet 4 mg PO Q8HP PRN Nausea 01/10/22 02/17/23 History propranolol 10 mg tablet 10 mg PO BID Headache prevention 01/10/22 02/17/23 History mirtazapine 7.5 mg tablet 7.5 mg PO HS Depression 02/14/22 02/17/23 History aripiprazole 5 mg tablet (Abilify) 5 mg PO HS Depression 02/17/23 02/17/23 History lactulose 10 gram/15 mL (15 mL) 15 ml PO DAILY Constipation 02/17/23 02/17/23 History oral solution megestrol 400 mg/10 mL (10 mL) 400 mg PO DAILY Supplement 02/17/23 02/17/23 History oral suspension sennosides 8.6 mg tablet (senna) 8.6 mg PO HS Constipation 02/17/23 02/17/23 History New Prescriptions to Start Prescriptions: Allergies Allergy/AdvReac Type Severity Reaction Status Date / Time calcium [CALCIUM] Allergy Unknown Verified 02/15/22 15:26 latex [LATEX] Allergy Unknown Verified 02/15/22 15:26 Exam Data for Last 24 hours Vital signs and Labs for Last 24 Hours: Temp Pulse Resp BP Pulse Ox O2 Del Method 102 F H 160 H 32 H 140/70 94 L Room Air 03/21/23 05:54 03/21/23 05:54 03/21/23 05:54 03/21/23 05:54 03/21/23 05:54 03/21/23 05:54 Laboratory Results - last 24 hr 03/21/23 05:55: Urine Color Yellow, Urine Appearance Turbid, Urine pH 6.5, Ur Specific Prospect 1.020, Urine Protein 3+, Urine Glucose (UA) Negative, Urine Ketones Negative, Urine Blood 2+, Urine Nitrate Negative, Urine Bilirubin Negative, Urine Urobilinogen 0.2, Ur Leukocyte Esterase 3+ A, Urine RBC 10-20, Urine WBC Tntc, Ur Squamous Epith Cells 3-5, Urine Bacteria 1+ 03/21/23 05:56: WBC 49.1 H*, RBC 4.97, Hgb 14.6, Hct 46.3, MCV 93.3, MCH 29.5, MCHC 31.6 L, RDW 13.8, Pl
--- NOTE | 2023-03-21 08:42 | PC.NURSE ---
I and meter/relay technician delivered pt to 2nd floor via stretcher.
--- NOTE | 2023-03-21 08:50 | CT_ITS ---
FINAL REPORT TECHNIQUE: Axial images through the abdomen and pelvis were performed without contrast. This study was performed with techniques to keep radiation doses as low as reasonably achievable, (ALARA). Individualized dose reduction techniques using automated exposure control or adjustment of mA and/or kV according to the patient's size were employed. CLINICAL HISTORY: sepsis, uti, fever this am COMPARISON: 02/17/2023 FINDINGS: ABDOMEN: There is mild bibasilar atelectasis. The heart size is normal. Limited images of the liver are unremarkable. The spleen is normal. No adrenal mass is identified. The aorta is normal in caliber. There is no significant free fluid or adenopathy. There is mild to moderate bilateral hydronephrosis, significantly improved. There are multiple nonobstructing renal stones measuring up to 9 mm, markedly improved. No left renal stones are identified. There is probable debris in the right renal pelvis. There is mild right perinephric stranding. PELVIS: The appendix is not identified. Goncalves catheter is seen in the bladder. There is marked bladder wall thickening with calcifications, stable. This may be inflammatory or less likely neoplastic. There is bilateral hydroureter without ureteral stone. There is no significant free fluid or adenopathy. IMPRESSION: Significant improvement in the bilateral hydronephrosis and renal stones. Stable diffuse bladder wall thickening, favor inflammatory over neoplastic. Reviewed, Interpreted and Dictated by Jaiden Lindsay III, MD Transcribed by Helene Fields Authenticated and [facility]
--- NOTE | 2023-03-21 09:15 | EXP.SEPSISRE ---
[facility] Tissue Perfusion Eval Sepsis Re-Evaluation Performed: Yes Date Performed: 03/21/23 Time Performed: 09:00
--- NOTE | 2023-03-21 09:28 | SW/DCPLANNER ---
Addendum entered by Lottie Hooks 03/23/23 10:47: Updated patient information has been faxed to Jennifer rosa/ [facility]. Discharge date is unknown at this time. Original Note: Patient currently resides at [facility] level of care. Updated patient information has been faxed to Jennifer rosa/ [facility]. I will continue to follow up with Jennifer until patient is ready for discharge. Discharge date is unknown at this time.
--- NOTE | 2023-03-21 09:34 | HMH.PHAINT1 ---
Pharmacy Intervention Comments: Medication history complete, medications verified with MAR from facility. - Melissa Jacobo, PharmD Candidate 2023
--- NOTE | 2023-03-21 09:57 | PC.NURSE ---
lab called with critical lab value trop 0.6. dr mcadams notified.
[2023-03-21 10:02] LABS: Reflex Lactic Add Lactic Reflex
--- NOTE | 2023-03-21 10:36 | PC.NURSE ---
DNR OBTAINED OVER THE PHONE WITH ANABELLA WADE WITH [facility]. COMPLETED, SIGNED BY DR NOVAK, AND ON THE CHART.
--- NOTE | 2023-03-21 10:41 | CA_ITS ---
APPROVED REPORT EXAM: Comprehensive 2D, Doppler, and color-flow Echocardiogram [employer]: Zeina Landis RT(R) Ht: 5 ft 1 in Wt: 122lbs BSA: 1.53 BP: 140/70 mmHg Indications: elevated troponin, MS, AMS, urosepsis 2D Dimensions LVOT 1.83 cm (M/F) 1.5-2.5 M-Mode Dimensions RVDd 1.69 cm (0.9-2.6) LVDd 4.08 cm (3.5-5.7) Ao Diam 2.61 cm (2.0-3.7) LVDs 3.55 cm (3.5-5.7) IVSd 0.43 cm (0.6-1.1) PWd 0.48 cm (0.6-1.1) EF (Teich) 28.30% FS 13.00% EDV (Teich) 73.40 mL ESV (Teich) 52.60 mL LV Diastology E Decel Time 210.00 (160-240 msec) E/A Ratio 0.9 MED E' 9.40 (< 7 cm/sec) E'/MED E' Ratio 7.57 (>14) LAT E' 8.70 (<10 cm/sec) E/LAT E' Ratio 8.18 (>14) Mitral Valve MV E Max Cordell. 71.00 (40-130 cm/s) MV A Velocity 81.00 (40-130 cm/s) E/A Ratio 0.88 MV Decel. Time 210.00 (160-240 ms) MV PHT 62.00 ms Tricuspid Valve TR P. Velocity 233.00 cm/s RAP Estimate 10.00 mmHg RVSP 31.70 mmHg Left Ventricle The left ventricle is normal size. Left ventricular systolic function is mildly decreased. There is normal left ventricular wall thickness. There is mild global hypokinesis. The septal, anteroseptal, and inferoseptal LV bernard appear moderately hypokinetic. The left ventricular diastolic function is normal. LVEF is 45%. Right Ventricle The right ventricle is normal size. The right ventricular systolic function is normal. There is increased RV wall thickness. Atria The left atrium size is normal. The right atrium size is normal. Aortic Valve The aortic valve opens well. There is no aortic valvular stenosis. Trace aortic regurgitation is present. Mitral Valve The mitral valve is normal in structure. No evidence of mitral valve stenosis. Trace mitral regurgitation. Tricuspid Valve The tricuspid valve leaflets are thin and pliable. Trace tricuspid regurgitation. RVSP is 20-25 mmHg. Pulmonic Valve The pulmonary valve is normal in structure. Trace pulmonic regurgitation. Great Vessels The aortic root is normal in size. The ascending aorta is normal in size. IVC is normal in size and collapses >50% with inspiration. Pericardium There is no pericardial effusion. Other Information Study Quality: Adequate Conclusion Mild reduction in LV systolic function (LVEF 45%) Septal, anteroseptal, and inferoseptal hypokinesis No significant valvular disease Electronically signed by : Dafne Gallegos, 03/21/2023 12:45:46
--- NOTE | 2023-03-21 11:29 | PC.NURSE ---
notified dr mcadams of bp 89/65. 1L bolus now. order faxed to pharmacy.
[2023-03-21 11:43] LABS: Lactic Acid Follow Up (RFLX 1) 2.2 mmol/L (0.7-2.1)
[2023-03-21 13:21] LABS: Reflex Lactic (2 hrs) Add Lactic Reflex
--- NOTE | 2023-03-21 13:35 | EXP.CARD.CON ---
History of Present Illness History of Present Illness Consult date: 03/21/23 Requesting physician: Willie Holley Chief complaint: AMS, elevated troponin History of present illness: This is a 48-year-old white female who presented to the emergency department with an altered mental status. She currently resides in a fdc due to a history of multiple sclerosis and she has been bedridden for approximately 2 years. She also has a history of a neurogenic bladder, recurrent UTIs, nephrolithiasis, seizure disorder and migraines. The patient was less responsive at the fdc and somewhat confused. The patient was not acting at her baseline. She also was febrile diaphoretic and flushed. The nursing staff at the fdc was concerned that she may have experienced a seizure. EMS was called and she was transported here to [facility]. The patient had a temperature of 102 ?F and a heart rate of 160 upon arrival to the emergency department. The patient was also hypernatremic, she had leukocytosis with a white count of 49.1, and a initial troponin at 0.78. Her repeat troponin was down to 0.60. Her EKG shows sinus tachycardia with 158 bpm. The patient's urinalysis did show a UTI with urosepsis. She has been admitted. Is getting we did a biotics. Her mental status remains altered today. She does arouse when her name is called and with a sternal rub. She is not following any commands today or answering any questions. She appears to be in no distress. [facility] Disclaimer: The information contained in this section may have been updated after the patient was seen, as this information can be updated by other users. Medical History (Updated 03/21/23 @ 13:50 by Britni Barba APRN) KELLY (acute kidney injury) Altered mental status Cardiomyopathy Diverticulitis large intestine Elevated troponin Migraines Mild protein-calorie malnutrition Multiple sclerosis Nephrolithiasis Non-STEMI (non-ST elevated myocardial infarction) Pyelonephritis Sepsis UTI (urinary tract infection) Family History (Updated 03/21/23 @ 09:58 by Carmen Payne RN) Other No significant family history Social History (Updated 03/21/23 @ 09:59 by Carmen Payne RN) Smoking Status: Unknown if ever smoked second hand exposure: No alcohol intake: former substance use type: marijuana current occupational status: disabled Travel in the last 8 weeks: None household members: other housing: fdc current occupational exposures/hazards: No caffeine: Yes Review of Systems Review of Systems Review of systems:: unable to obtain and pertinent systems reviewed and negative unless documented below *Neurologic Neurologic: Reports confusion Psychiatric Psychiatric: Reports confusion Exam Data for Last 24 hours Vital signs and Labs for Last 24 Hours: Temp Pulse Resp BP Pulse Ox O2 Del Method O2 Flow Rate 99.3 F 108 H 16 89/62 L 96 Room Air 2 03/21/23 11:11 03/21/23 11:11 03/21/23 11:11 03/21/23 11:11 03/21/23 11:11 03/21/23 11:11 03/21/23 08:17 Laboratory Results - last 24 hr 03/21/23 05:55: Urine Color Yellow, Urine Appearance Turbid, Urine pH 6.5, Ur Specific [place] 1.020, Urine Protein 3+, Urine Glucose (UA) Negative, Urine Ketones Negative, Urine Blood 2+, Urine Nitrate Negative, Urine Bilirubin Negative, Urine Urobilinogen 0.2, Ur Leukocyte Esterase 3+ A, Urine RBC 10-20, Urine WBC Tntc, Ur Squamous Epith Cells 3-5, Urine Bacteria 1+ 03/21/23 05:56: WBC 49.1 H*, RBC 4.97, Hgb 14.6, Hct 46.3, MCV 93.3, MCH 29.5, MCHC 31.6 L, RDW 13.8, Plt Count 607 H, MPV 7.6, Neut % (Auto) 87.9 H, Lymph % (Auto) 8.3 L, [place] % (Auto) 3.2, Eos % (Auto) 0.1, Baso % (Auto) 0.6, Neut # (Auto) 43.2 H, Lymph # (Auto) 4.0, [place] # (Auto) 1.6 H, Eos # (Auto) 0.1, Baso # (Auto) 0.3 H, Total Counted 100, Neutrophils % (Manual) 87 H, Lymphocytes % (Manual) 10, Monocytes % (Manual) 1 L, Metamyelocytes % 1.0, Myelocytes % 1, Platelet [place]
[2023-03-21 14:05] LABS: Lactic Acid Follow up (RFLX 2) 1.8 mmol/L (0.7-2.1)
--- NOTE | 2023-03-21 15:43 | DIET.NUTRFU ---
Patient is on a MSOFT diet with thin liquids at [place] and meals items are served in bowls. She was sleeping when I tried to interview. Will notify kitchen of diet change and attempt to interview at later time.
[2023-03-21 16:24] LABS: POC Glucose,Bedside 105 (70-110)
--- NOTE | 2023-03-21 18:41 | PC.NURSE ---
ALERT TO NAME ONLY. NO VERBAL RESPONSE. OPENS EYES WHEN SPOKE TO. SISTER STATES SHE USUALLY TALKS BUT VERY QUIETLY. LUNG SOUNDS DIMINISHED THROUGHOUT. NO COUGH NOTED. +2 PULSES NOTED THROUGHOUT. NO EDEMA NOTED. ACTIVE BOWEL SOUNDS HEARD IN ALL 4 QUADRANTS. SOFT AND NONTENDER. NO BM THUS FAR. LOVING CATH IN PLACE WITH CLOUDY YELLOW URINE NOTED. CONTINUES TO LOOK BETTER FROM BEGINNING OF SHIFT TO NOW. NO KINKS NOTED TO LOVING. PT TURNED Q2 HOURS TO PREVENT SKIN BREAKDOWN. NS INFUSING AT 75ML/HR. SEIZURE PRECAUTIONS IN PLACE. BED ALARM ON FOR SAFETY. BED IN LOWEST POSITION. CALL LIGHT WITHIN REACH. VSS. PT HAS TOLERATED RA WELL THROUGHOUT SHIFT. RESPIRATIONS REGULAR AND UNLABORED. HAS REMAINED AFEBRILE THUS FAR AFTER COMING TO THE FLOOR.
--- NOTE | 2023-03-21 21:53 | PC.NURSE ---
2046 bennett notified of tachycardia of 130's, ineffective swallowing - bennett stated to hold PO meds r/t decreased mental status, monitor tachycardia r/t sepsis, prn metoprolol for HR >160. HOB 90 degree, seizure pads on, pt unable to verbalize any discomfort at this time. with open eyes when spoken to, but doesn't make direct eye contact. bed locked and in lowest position with cb in reach. POC ongoing
[2023-03-21 22:09] LABS: POC Glucose,Bedside 110 (70-110)
[2023-03-22] VITALS (11 sets, daily range): BP systolic 99–131; BP diastolic 56–78; PULSE 103–133; RESP 16–22; TEMP 37.2–39.2; O2SAT 95–100; BMI 23.6
--- NOTE | 2023-03-22 05:30 | PC.NURSE ---
042 - pt was visualized having a seizure from 2695-1658, lasting 2 minutes, axillary temp of 101.7, tachy HR 134. pt presented with muscle twitching, groaning, drooling/foaming of mouth, staring, stiffening of the arms, conscious during episode. ELVIN Cruz notified, new orders for IV keppra and IV tylenol - see OCT. pt was suctioned for safety 446 - pt began to seize again for 2 minutes from 5160-4030, rectal temp of 102.5, tachy 133, pt was suctioned for safety, conscious during episode 450 - pt began to seize again for 2.5 minutes 5396-2324.5 --- ice packs placed in arm pits and groin, 2L NC on, tachy 133, pt was suctioned for safety. conscious during episode. house and charge in room, sabrina notified again of continuing seizures and to get prn rescue meds, sabrina said call me back if she has a 4th one and then ill give prn meds . 0530 - rectal temp 100.8, 2LNC, tachy at 133, pt resting comfortably on left side. bed locked and in lowest position, with side rails up, suction at bedside and cb within reach. plan of care ongoing for this patient.
[2023-03-22 06:32] LABS: Basophils # 0.1 K/mm3 (0-0.2); Basophils % 0.3 % (0.1-2.0); Eosinophils # 0.1 K/mm3 (0.0-0.4); Eosinophils % 0.2 % (0.1-12.0); Hematocrit 35.3 % (37.0-47.0); Lymphocytes # 4.1 K/mm3 (0.7-4.5); Lymphocytes % 13.8 % (10-50); Mean Corpuscular HGB Conc 31.6 g/dL (31.8-35.4); Mean Corpuscular Hemoglobin 30.1 pg (27.0-31.2); Mean Corpuscular Volume 95.5 fl (81-99); Mean Platelet Volume 7.5 fl (7.4-10.4); Monocytes # 0.8 K/mm3 (0.1-1.0); Monocytes % 2.7 % (1.7-9.3); Neutrophils # 24.8 K/mm3 (1.8-7.8); Platelet Count 389 K/mm3 (142-424); Red Blood Count 3.69 M/mm3 (4.20-5.40); White Blood Count 29.8 K/mm3 (4.8-10.8)
[2023-03-22 06:33] LABS: MANUAL DIFFERENTIAL MANUAL DIFFERENTIAL (MANUAL DIFF)
[2023-03-22 06:34] LABS: Alanine Aminotransferase 32 U/L (12-78); Albumin Level 3.3 g/dl (3.5-5.0); Alkaline Phosphatase 111 U/L (38-126); Aspartate Amino Transferase 34 U/L (14-36); Bilirubin,Direct 0.3 mg/dl (0.0-0.4); Bilirubin,Indirect 0.1 mg/dL (0.0-0.9); Bilirubin,Total 0.4 mg/dl (0.2-1.3); Bilirubin,Unconjugated 0.1 mg/dL (0.0-1.1); Chol/HDL Ratio 5.4 (1-3.5); Cholesterol 124 mg/dl (140-200); HDL Cholesterol 23 mg/dl (40-60); Total Protein,Serum 7.4 g/dl (6.3-8.2); Triglycerides 110 mg/dl (30-150); VLDL Cholesterol 22 mg/dL (0-40)
[2023-03-22 06:35] LABS: Hemoglobin 11.1 g/dL (12.2-16.2)
[2023-03-22 06:44] LABS: Chloride 113 mmol/L (98-107)
[2023-03-22 06:45] LABS: Potassium 3.5 mmoL/L (3.5-5.1); Sodium 146 mmol/L (136-145)
[2023-03-22 06:47] LABS: Blood Urea Nitrogen 12 mg/dl (7-17); Creatinine Clearance Estimated 105 mL/min (50-200); Estimated Glomerular Filt Rate 108 ml/min (>60); GFR (African American) 130 ML/MIN (>60)
[2023-03-22 06:48] LABS: Anion Gap 15.5 mEq/L (5-15); Calcium 9.4 mg/dl (8.4-10.2); Carbon Dioxide 21 mmol/L (22.0-30.0); Glucose 95 mg/dl (74-100)
--- NOTE | 2023-03-22 06:50 | PC.NURSE ---
rectal temp 101.7 noted, ice paks in place. Kishan JAMES notified - he stated he will call back
[2023-03-22 06:53] LABS: Direct LDL Cholesterol 60.33 mg/dL (100-129)
[2023-03-22 07:08] LABS: POC Glucose,Bedside 100 (70-110)
[2023-03-22 07:19] LABS: Lymphocytes % 21 % (10-50); Monocytes % 2 % (2-9); Neutrophils % 77 % (42-76); Platelet Estimate Normal; RBC Morphology Normal; Total Cells Counted 100
--- NOTE | 2023-03-22 07:21 | PC.NURSE ---
Kishan put new orders in for rectal asa
--- NOTE | 2023-03-22 07:32 | EXP.PN ---
Subjective *Date: 03/22/23 *Time: 12:09 Interval history: The patient had seizure like activity earlier this morning. She also has had fevers. Currently tracks with her eyes but doesn't follow simple commands. Exam Data for Last 24 hours Vital signs and Labs for Last 24 Hours: Temp Pulse Resp BP Pulse Ox O2 Del Method O2 Flow Rate 101.7 F H 133 H 22 131/76 98 Nasal Cannula 2 03/22/23 06:49 03/22/23 04:00 03/22/23 04:00 03/22/23 04:00 03/22/23 04:00 03/22/23 06:51 03/22/23 06:51 Laboratory Results - last 24 hr 03/21/23 05:55: Urine Color Yellow, Urine Appearance Turbid, Urine pH 6.5, Ur Specific [place] 1.020, Urine Protein 3+, Urine Glucose (UA) Negative, Urine Ketones Negative, Urine Blood 2+, Urine Nitrate Negative, Urine Bilirubin Negative, Urine Urobilinogen 0.2, Ur Leukocyte Esterase 3+ A, Urine RBC 10-20, Urine WBC Tntc, Ur Squamous Epith Cells 3-5, Urine Bacteria 1+ 03/21/23 09:10: Troponin I 0.60 H 03/21/23 11:15: Lactate 2.2 H 03/21/23 13:42: Lactate 1.8 03/21/23 16:18: POC Glucose 105 03/21/23 22:02: POC Glucose 110 03/22/23 05:55: WBC 29.8 H* D, RBC 3.69 L D, Hgb 11.1 L D, Hct 35.3 L, MCV 95.5, MCH 30.1, MCHC 31.6 L, RDW 14.0, Plt Count 389 D, MPV 7.5, Neut % (Auto) 83.0 H, Lymph % (Auto) 13.8, [place] % (Auto) 2.7, Eos % (Auto) 0.2, Baso % (Auto) 0.3, Neut # (Auto) 24.8 H, Lymph # (Auto) 4.1, [place] # (Auto) 0.8, Eos # (Auto) 0.1, Baso # (Auto) 0.1, Total Counted 100, Neutrophils % (Manual) 77 H, Lymphocytes % (Manual) 21, Monocytes % (Manual) 2, Platelet Estimate Normal, RBC Morphology Normal, Sodium 146 H, Potassium 3.5, Chloride 113 H, Carbon Dioxide 21 L, Anion Gap 15.5 H, BUN 12 D, Creatinine 0.60 D, Estimated Creat Clear 105, Estimated GFR 108, Est GFR ( Amer) 130 D, Glucose 95 D, Calcium 9.4, Total Bilirubin 0.4, Direct Bilirubin 0.3, Conjugated Bilirubin 0.0, Indirect Bilirubin 0.1, Unconjugated Bilirubin 0.1, AST 34 D, ALT 32 D, Alkaline Phosphatase 111, Total Protein 7.4, Albumin 3.3 L D, Triglycerides 110, Cholesterol 124 L, LDL Cholesterol Direct 60.33 L, VLDL Cholesterol 22, HDL Cholesterol 23 L, Cholesterol/HDL Ratio 5.4 H 03/22/23 06:44: POC Glucose 100 I & O for Last 24 hours: Intake & Output 03/19/23 03/20/23 03/21/23 03/22/23 23:59 23:59 23:59 23:59 Intake Total 3697 / 4107 1010 / 1010 Output Total 2400 / 2400 1400 / 1400 Balance 1297 / 1707 -390 / -390 Weight 55.48 kg 56.869 kg Microbiology Reports for the Last 24 Hours: Microbiology 03/21/23 05:55 Urine,Clean Catch Urine Culture - Preliminary Gram Negative Rods Constitutional Constitutional: no acute distress *Routine HEENT Exam Head: Present normocephalic Eye: Present EOMI and PERRL ENT: Present mucous membranes moist *Routine Neck Exam Neck: Present supple; Absent lymphadenopathy *Routine Respiratory Exam Respiratory: Present CTA bilaterally *Routine Cardiovascular Exam Cardiovascular: Present RRR *Routine Abdominal Exam Abdominal: Present soft and normoactive bowel sounds; Absent tenderness *Routine Extremities Exam Extremities: Absent cyanosis or edema *Routine Skin Exam Skin: Present warm; Absent rash *Routine Neurological Exam Comments: Currently tracks with her eyes but doesn't follow simple commands. Assessment and Plan *Assessment and plan (1) Sepsis: Status: Acute Category: Medical Code(s): A41.9 - Sepsis, unspecified organism (2) KELLY (acute kidney injury): Status: Acute Category: Medical Code(s): N17.9 - Acute kidney failure, unspecified (3) UTI (urinary tract infection): Status: Acute Qualifiers: Hematuria presence: with hematuria Urinary tract infection type: acute cystitis Qualified Code(s): N30.01 - Acute cystitis with hematuria Category: Medical Code(s): N39.0 - Urinary tract infection, site not specified (4) Multiple sclerosis: Status: Chronic Liliya
--- NOTE | 2023-03-22 10:42 | EXP.CARD.PN ---
Subjective Subjective Date: 03/22/23 Time: 09:30 Principal diagnosis: elevated troponin Interval history: This is a 48-year-old white female who presented to the emergency department from the fdc with altered mental status. Patient was found to have a UTI and urosepsis. She has been started on IV antibiotics. Cardiology was consulted due to an elevated troponin. Echocardiogram was obtained she does have some mild LV dysfunction and wall motion abnormalities. However, no plans for invasive cardiac testing at this time secondary to her sepsis. Through the night last night the patient had 3 episodes of seizure-like activity and remained febrile and was treated with Keppra and Tylenol. She remains febrile and tachycardic this morning. The patient does open her eyes when her name is being called at times. She does not follow any commands. She is not answering any questions. She appears to be in no distress this morning. Exam Data for Last 24 hours Vital signs and Labs for Last 24 Hours: Temp Pulse Resp BP Pulse Ox O2 Del Method O2 Flow Rate 99.9 F H 112 H 18 118/65 100 Nasal Cannula 2 03/22/23 10:15 03/22/23 08:00 03/22/23 08:00 03/22/23 08:00 03/22/23 08:00 03/22/23 09:56 03/22/23 09:56 Laboratory Results - last 24 hr 03/21/23 05:55: Urine Color Yellow, Urine Appearance Turbid, Urine pH 6.5, Ur Specific [place] 1.020, Urine Protein 3+, Urine Glucose (UA) Negative, Urine Ketones Negative, Urine Blood 2+, Urine Nitrate Negative, Urine Bilirubin Negative, Urine Urobilinogen 0.2, Ur Leukocyte Esterase 3+ A, Urine RBC 10-20, Urine WBC Tntc, Ur Squamous Epith Cells 3-5, Urine Bacteria 1+ 03/21/23 11:15: Lactate 2.2 H 03/21/23 13:42: Lactate 1.8 03/21/23 16:18: POC Glucose 105 03/21/23 22:02: POC Glucose 110 03/22/23 05:55: WBC 29.8 H* D, RBC 3.69 L D, Hgb 11.1 L D, Hct 35.3 L, MCV 95.5, MCH 30.1, MCHC 31.6 L, RDW 14.0, Plt Count 389 D, MPV 7.5, Neut % (Auto) 83.0 H, Lymph % (Auto) 13.8, [place] % (Auto) 2.7, Eos % (Auto) 0.2, Baso % (Auto) 0.3, Neut # (Auto) 24.8 H, Lymph # (Auto) 4.1, [place] # (Auto) 0.8, Eos # (Auto) 0.1, Baso # (Auto) 0.1, Total Counted 100, Neutrophils % (Manual) 77 H, Lymphocytes % (Manual) 21, Monocytes % (Manual) 2, Platelet Estimate Normal, RBC Morphology Normal, Sodium 146 H, Potassium 3.5, Chloride 113 H, Carbon Dioxide 21 L, Anion Gap 15.5 H, BUN 12 D, Creatinine 0.60 D, Estimated Creat Clear 105, Estimated GFR 108, Est GFR ( Amer) 130 D, Glucose 95 D, Calcium 9.4, Total Bilirubin 0.4, Direct Bilirubin 0.3, Conjugated Bilirubin 0.0, Indirect Bilirubin 0.1, Unconjugated Bilirubin 0.1, AST 34 D, ALT 32 D, Alkaline Phosphatase 111, Total Protein 7.4, Albumin 3.3 L D, Triglycerides 110, Cholesterol 124 L, LDL Cholesterol Direct 60.33 L, VLDL Cholesterol 22, HDL Cholesterol 23 L, Cholesterol/HDL Ratio 5.4 H 03/22/23 06:44: POC Glucose 100 I & O for Last 24 hours: Intake & Output 03/19/23 03/20/23 03/21/23 03/22/23 23:59 23:59 23:59 23:59 Intake Total 3697 / 4107 1010 / 1010 Output Total 2400 / 2400 1400 / 1400 Balance 1297 / 1707 -390 / -390 Weight 122 lb 5 oz 125 lb 6 oz Microbiology Reports for the Last 24 Hours: Microbiology 03/21/23 05:55 Urine,Clean Catch Urine Culture - Preliminary Gram Negative Rods Narrative: EKG is sinus tachycardia with a rate in the 150s. Constitutional Constitutional: no acute distress, average body habitus, chronically ill appearing and somnolent *Routine HEENT Exam Head: Present normocephalic and atraumatic ENT: Present mucous membranes moist *Routine Neck Exam Neck: Present supple and normal carotid upstroke; Absent JVD, carotid bruit or lymphadenopathy *Routine Respiratory Exam Respiratory: Present CTA bilaterally, normal respiratory effort and symmetric chest movement *Routine Cardiovascular Exam Cardiovascular: Present RRR, Normal S1, Normal S2 and tachycardia; Absent murmur or gallop *Routine Abdomi
--- NOTE | 2023-03-22 10:44 | CT_ITS ---
FINAL REPORT CLINICAL HISTORY: ams, seizure like activity COMPARISON: 02/17/2023 FINDINGS: Axial images of the head were obtained without contrast. Coronal reformatted images were also obtained.This study was performed with techniques to keep radiation doses as low as reasonably achievable (ALARA). Individualized dose reduction techniques using automated exposure control or adjustment of mA and/or kV according to the patient's size were employed. There is no evidence of intracranial hemorrhage or mass. Periventricular low-attenuation may represent chronic ischemic change. There is mild to moderate ventriculomegaly worrisome for hydrocephalus, stable. There is no evidence of shift of the midline structures. No abnormal extra axial fluid collection is identified. No skull abnormality is seen on the bone window images. IMPRESSION: No acute intracranial abnormality. Stable mild to moderate ventriculomegaly. Findings consistent with chronic ischemic change. Reviewed, Interpreted and Dictated by Jaiden Lindsay III, MD Transcribed by Danita Wallace Authenticated and [facility]
[2023-03-22 10:56] LABS: POC Glucose,Bedside 81 (70-110)
--- NOTE | 2023-03-22 13:17 | PC.NURSE ---
ROUNDED ON PT. WAS LYING IN BED ASLEEP, NO NEEDS OR DISCOMFORT NOTED.
[2023-03-22 16:45] LABS: POC Glucose,Bedside 65 (70-110)
[2023-03-22 17:40] LABS: POC Glucose,Bedside 67 (70-110)
[2023-03-22 19:22] LABS: POC Glucose,Bedside 57 (70-110)
--- NOTE | 2023-03-22 20:06 | PC.NURSE ---
2005 lucy bennett notified of rectal temp 100.9
--- NOTE | 2023-03-22 20:57 | PC.NURSE ---
prn tylenol sup gave per mar at 2019, temp reassessed at 2049 rectal 100.1
[2023-03-22 23:30] LABS: POC Glucose,Bedside 90 (70-110)
[2023-03-22 23:30] LABS: POC Glucose,Bedside 114 (70-110)
[2023-03-23] VITALS: BP 116/74; PULSE 100; PULSE 102; RESP 18; TEMP 37.7; O2SAT 100
--- NOTE | 2023-03-23 01:27 | PC.NURSE ---
seizure noted at 1154-9106, sabrina notified face to face. decreased o2 sat to 70s on 2LNC, increased to 3L and sating in 80's. Once seizure complete, o2 100% on 2L. HOB 75 degrees, suction at bedside, laying on right side. bed locked in lowest position with call light in place.
[2023-03-23 04:00] VITALS: BP 116/69; PULSE 104; PULSE 90; RESP 18; TEMP 37.6; O2SAT 99; BMI 23.3
[2023-03-23 06:40] LABS: POC Glucose,Bedside 93 (70-110)
[2023-03-23 07:10] LABS: Basophils % 0.2 % (0.1-2.0); Eosinophils # 0.3 K/mm3 (0.0-0.4); Eosinophils % 1.6 % (0.1-12.0); Hematocrit 34.1 % (37.0-47.0); Hemoglobin 10.8 g/dL (12.2-16.2); Lymphocytes % 24.8 % (10-50); Mean Corpuscular HGB Conc 31.6 g/dL (31.8-35.4); Mean Corpuscular Hemoglobin 30.1 pg (27.0-31.2); Mean Corpuscular Volume 95.1 fl (81-99); Mean Platelet Volume 8.4 fl (7.4-10.4); Monocytes # 0.7 K/mm3 (0.1-1.0); Monocytes % 4.1 % (1.7-9.3); Neutrophils # 11.1 K/mm3 (1.8-7.8); Neutrophils % 69.3 % (37.0-80.0); Platelet Count 399 K/mm3 (142-424); Red Blood Count 3.59 M/mm3 (4.20-5.40); Red Cell Distribution Width 13.7 % (11.5-17.5); White Blood Count 16.1 K/mm3 (4.8-10.8)
[2023-03-23 07:13] LABS: MANUAL DIFFERENTIAL MANUAL DIFFERENTIAL (MANUAL DIFF)
[2023-03-23 07:31] LABS: Eosinophils % 1 % (0-3); Lymphocytes % 28 % (10-50); Monocytes % 6 % (2-9); Neutrophils % 65 % (42-76); Platelet Estimate Slight Increase; RBC Morphology Normal; Total Cells Counted 100
--- NOTE | 2023-03-23 07:31 | EXP.PN ---
Subjective *Date: 03/23/23 *Time: 10:10 Interval history: Overnight the patient had seizure like activity that lasted less than one minute. She is more alert this morning but has been nonverbal which is not normal for her. She hasn't been able to eat. Exam Data for Last 24 hours Vital signs and Labs for Last 24 Hours: Temp Pulse Resp BP Pulse Ox O2 Del Method O2 Flow Rate 99.9 F H 90 18 116/74 100 Nasal Cannula 2 03/23/23 00:00 03/23/23 04:00 03/23/23 00:00 03/23/23 00:00 03/23/23 00:00 03/23/23 06:16 03/23/23 06:16 Laboratory Results - last 24 hr 03/22/23 10:49: POC Glucose 81 03/22/23 16:38: POC Glucose 65 L 03/22/23 17:33: POC Glucose 67 L 03/22/23 19:15: POC Glucose 57 L 03/22/23 20:29: POC Glucose 114 H 03/22/23 23:23: POC Glucose 90 03/23/23 05:27: POC Glucose 93 03/23/23 06:20: WBC 16.1 H D, RBC 3.59 L, Hgb 10.8 L, Hct 34.1 L, MCV 95.1, MCH 30.1, MCHC 31.6 L, RDW 13.7, Plt Count 399, MPV 8.4, Neut % (Auto) 69.3, Lymph % (Auto) 24.8, [place] % (Auto) 4.1, Eos % (Auto) 1.6, Baso % (Auto) 0.2, Neut # (Auto) 11.1 H, Lymph # (Auto) 4.0, [place] # (Auto) 0.7, Eos # (Auto) 0.3, Baso # (Auto) 0.0, Total Counted 100, Neutrophils % (Manual) 65, Lymphocytes % (Manual) 28, Monocytes % (Manual) 6, Eosinophils % (Manual) 1, Platelet Estimate Slight increase, RBC Morphology Normal I & O for Last 24 hours: Intake & Output 03/20/23 03/21/23 03/22/23 03/23/23 23:59 23:59 23:59 23:59 Intake Total 3697 / 4107 1785 / 2417 1432 / 1432 Output Total 2400 / 2400 2300 / 3700 1400 / 1400 Balance 1297 / 1707 -515 / -1283 32 / 32 Weight 55.48 kg 56.8 kg Microbiology Reports for the Last 24 Hours: Microbiology 03/21/23 05:55 Urine,Clean Catch Urine Culture - Preliminary Gram Negative Rods Constitutional Constitutional: no acute distress *Routine HEENT Exam Head: Present normocephalic Eye: Present PERRL ENT: Present mucous membranes moist *Routine Neck Exam Neck: Present supple; Absent lymphadenopathy *Routine Respiratory Exam Respiratory: Present CTA bilaterally *Routine Cardiovascular Exam Cardiovascular: Present RRR *Routine Abdominal Exam Abdominal: Present soft and normoactive bowel sounds; Absent tenderness *Routine Extremities Exam Extremities: Absent cyanosis or edema *Routine Skin Exam Skin: Present warm; Absent rash *Routine Neurological Exam Neurological: Present alert Comments: She is not tracking with her eyes. She doesn't follow simple commands She has left sided preferential gaze she wiggles bilateral toes and has spontaneous movements of all 4 extremities but less movement in the RUE She has a mild right sided facial droop Assessment and Plan *Assessment and plan (1) Sepsis: Status: Acute Category: Medical Code(s): A41.9 - Sepsis, unspecified organism (2) KELLY (acute kidney injury): Status: Acute Category: Medical Code(s): N17.9 - Acute kidney failure, unspecified (3) UTI (urinary tract infection): Status: Acute Qualifiers: Hematuria presence: with hematuria Urinary tract infection type: acute cystitis Qualified Code(s): N30.01 - Acute cystitis with hematuria Category: Medical Code(s): N39.0 - Urinary tract infection, site not specified (4) Multiple sclerosis: Status: Chronic Category: Medical Code(s): G35 - Multiple sclerosis (5) Nephrolithiasis: Status: Acute Category: Medical Code(s): N20.0 - Calculus of kidney Plan #seizure like activity #right sided weakness #mild R facial droop #aphasia #L sided preferential gaze #acute encephalopathy #sepsis #uti #nstemi #kelly, resolved #fever, resolving #multiple sclerosis #neurogenic bladder The patient had brief siezure like activity overnight that resolved within less than a minute. She is more alert today but on my exam seemed to have mild right sided droop and L sided prefer
[2023-03-23 08:00] VITALS: BP 103/73; PULSE 61; RESP 16; TEMP 37.5; O2SAT 96
[2023-03-23 08:02] LABS: Chloride 109 mmol/L (98-107); Potassium 3.2 mmoL/L (3.5-5.1); Sodium 139 mmol/L (136-145)
[2023-03-23 08:05] LABS: Anion Gap 14.2 mEq/L (5-15); Blood Urea Nitrogen 8 mg/dl (7-17); Carbon Dioxide 19 mmol/L (22.0-30.0); Creatinine Clearance Estimated 124 mL/min (50-200); Estimated Glomerular Filt Rate 133 ml/min (>60); GFR (African American) 161 ML/MIN (>60); Glucose 92 mg/dl (74-100)
[2023-03-23 10:36] LABS: POC Glucose,Bedside 102 (70-110)
--- NOTE | 2023-03-23 10:45 | DIET.NUTRFU ---
Addendum entered by Nayana Francis RD, LD 03/23/23 13:28: Spoke to provider with concern of poor intake, charge nurse fed her again at lunch and was unable to get her to swallow but allittle. She spit some back out and only took a couple bites of MSOFT lunch. Provider spoke to family and received some conflicting information on feeding independence but she was eating prior to admit per family. Provider ordered a MRI of brain. If oral diet cannot be consumed to meet needs provider would consider TF via NG tomorrow, he is hoping she continue to progress and improve her mental status and be able to eat. Addendum entered by Nayana Francis RD, MARISA 03/23/23 11:06: She is currently receiving dextrose,NaCl for minimal calories and hydration due poor po intake Original Note: Patient has not eaten much since admit, nothing yesterday and only few bites this morning for breakfast. She slept most of day yesterday, more alert today but still would not eat, nurse paper mill manager assisted with breakfast and patient kept turning head. provider was going to touch base with family to determine more of a baseline. She was admitted from and was on MSOFT diet. Spoke to nurse at , that is somewhat familiar with patient. She reported that if you had patient up in chair for meals she could feed self, needed assistance when in bed. She was started on megace at facility it was due significant wt loss, which resolved. She reported no significant wt loss recently. Will continue to monitor alertness and meal intake. If oral intake is not feasible to meet nutritional needs will need to review wishes for enteral nutrition.
--- NOTE | 2023-03-23 10:51 | MR_ITS ---
FINAL REPORT CLINICAL HISTORY: PREFERENTIAL LEFT SIDED GAZE COMPARISON: 02/23/2021 FINDINGS: Multiplanar MR imaging of the brain was performed without contrast. Motion artifact is identified on many of the images. There are scattered foci of increased T2 signal in the cerebral white matter that have a nonspecific appearance but likely represent moderate to severe chronic ischemic/gliotic changes. A component of ventricular edema could have a similar appearance. There is moderate ventriculomegaly, worse than previous consistent with hydrocephalus. Despite the motion, there appears to be an area of restricted diffusion involving the medial left thalamus, left occipital lobe, and posterior left temporal lobe most worrisome for acute infarcts. There is no evidence of intracranial hemorrhage or mass. Normal major vessel vascular flow voids are seen. IMPRESSION: Findings most worrisome for acute infarcts as detailed above. Recommend follow-up MRI. Worsening moderate ventriculomegaly consistent with hydrocephalus. Valente Pollard RN was notified of findings on 03/23/2023 at 1:22 p.m. Reviewed, Interpreted and Dictated by Jaiden Lindsay III, MD Transcribed by Helene Fields Authenticated and . [facility]
[2023-03-23 12:00] VITALS: BP 112/75; PULSE 109; RESP 22; TEMP 36.4; O2SAT 97
--- NOTE | 2023-03-23 12:53 | EXP.CARD.PN ---
Subjective Subjective Date: 03/23/23 Time: 10:00 Principal diagnosis: elevated troponin Interval history: This is a 48-year-old white female who presented to the emergency department from the senior care with an altered mental status. The patient was found to have a UTI and urosepsis. She has been getting IV antibiotics. The patient did have an elevated troponin on admission. Her echocardiogram showed some mild LV dysfunction and wall motion abnormalities. However, no plans for invasive cardiac testing on this admission due to her sepsis. The patient has had some seizure-like activity noted as well and is getting Keppra. The patient was febrile and also had tachycardia. Her temperature is normal today and her heart rate has improved. She does open her eyes today when her name is called. She does not follow any of my commands. She does not answer any my questions. She does not appear to be in any distress. Exam Data for Last 24 hours Vital signs and Labs for Last 24 Hours: Temp Pulse Resp BP Pulse Ox O2 Del Method O2 Flow Rate 97.6 F 109 H 22 112/75 97 Nasal Cannula 2 03/23/23 12:00 03/23/23 12:00 03/23/23 12:00 03/23/23 12:00 03/23/23 12:00 03/23/23 12:00 03/23/23 12:00 Laboratory Results - last 24 hr 03/22/23 16:38: POC Glucose 65 L 03/22/23 17:33: POC Glucose 67 L 03/22/23 19:15: POC Glucose 57 L 03/22/23 20:29: POC Glucose 114 H 03/22/23 23:23: POC Glucose 90 03/23/23 05:27: POC Glucose 93 03/23/23 06:20: WBC 16.1 H D, RBC 3.59 L, Hgb 10.8 L, Hct 34.1 L, MCV 95.1, MCH 30.1, MCHC 31.6 L, RDW 13.7, Plt Count 399, MPV 8.4, Neut % (Auto) 69.3, Lymph % (Auto) 24.8, [place] % (Auto) 4.1, Eos % (Auto) 1.6, Baso % (Auto) 0.2, Neut # (Auto) 11.1 H, Lymph # (Auto) 4.0, [place] # (Auto) 0.7, Eos # (Auto) 0.3, Baso # (Auto) 0.0, Total Counted 100, Neutrophils % (Manual) 65, Lymphocytes % (Manual) 28, Monocytes % (Manual) 6, Eosinophils % (Manual) 1, Platelet Estimate Slight increase, RBC Morphology Normal, Sodium 139, Potassium 3.2 L, Chloride 109 H, Carbon Dioxide 19 L, Anion Gap 14.2, BUN 8 D, Creatinine 0.50 L, Estimated Creat Clear 124, Estimated GFR 133, Est GFR ( Amer) 161 D, Glucose 92, Calcium 9.0 03/23/23 10:29: POC Glucose 102 I & O for Last 24 hours: Intake & Output 03/20/23 03/21/23 03/22/23 03/23/23 23:59 23:59 23:59 23:59 Intake Total 3697 / 4107 1785 / 2417 1432 / 1432 Output Total 2400 / 2400 2300 / 3700 2325 / 2325 Balance 1297 / 1707 -515 / -1283 -893 / -893 Weight 122 lb 5 oz 125 lb 3.561 oz 123 lb 5 oz Microbiology Reports for the Last 24 Hours: Microbiology 03/21/23 05:55 Urine,Clean Catch Urine Culture - Final Escherichia coli 03/21/23 05:56 Blood Blood Culture - Preliminary NO GROWTH AFTER 48 HOURS 03/21/23 05:56 Blood Blood Culture - Preliminary NO GROWTH AFTER 48 HOURS Narrative: EKG is sinus tachycardia with a rate of 105. Constitutional Constitutional: no acute distress, average body habitus, chronically ill appearing and somnolent *Routine HEENT Exam Head: Present normocephalic and atraumatic ENT: Present mucous membranes moist *Routine Neck Exam Neck: Present supple; Absent JVD, carotid bruit or lymphadenopathy *Routine Respiratory Exam Respiratory: Present CTA bilaterally, normal respiratory effort and symmetric chest movement *Routine Cardiovascular Exam Cardiovascular: Present RRR, Normal S1, Normal S2 and tachycardia; Absent murmur or gallop *Routine Abdominal Exam Abdominal: Present soft and normoactive bowel sounds; Absent distended or organomegaly *Routine Extremities Exam Extremities: Present pulses intact and normal capillary refill; Absent cyanosis, clubbing or edema *Routine Skin Exam Skin: Present intact and warm; Absent erythema *Routine Neurological Exam Neurological: Present altered mental status Routine Psychiatric Exam Psychiatric: Present unable to assess
--- NOTE | 2023-03-23 13:22 | PC.NURSE ---
DR. Holley called and made aware of results of patient's MRI of the brain.
--- NOTE | 2023-03-23 14:28 | EXP.DC.SUM ---
General Admission date:: 03/21/23 Discharge date: 03/23/23 HPI HPI HPI: Ms. Buitrago is a 48 year old female with a past medical history of multiple sclerosis, bedridden x 2 years, neurogenic bladder, recurrent UTI, nephrolithiasis, siezure disorder and migraines. She presents from [facility] because staff noticed that she was less responsive. Per ex-boyfriend at bedside she was her typical self yesterday; alert, recognizing family and oriented to person and place but not time. She presented to the ED with HR 160 and temperature of 102 degrees F. UA is with TNTC wbcs. She is lethargic and grimaces to sternal rub. Approximately a month ago the patient was transferred to [facility] for sepsis/uti and a left kidney stone; per the patient's sister and MPOA the patient had lithotripsy and a stent placed in the left ureter which was removed approximately 1 week ago; she also states that as of a few days ago she was transitioned from her chronic indwelling zhou to i/o catheterization TID. Assessment/Plan: #sepsis #uti #multiple sclerosis #neurogenic bladder The patient has sepsis evidenced by leukocytosis (49K WBCs), tachycardia HR 160, UA with TNTC wbcs and lactic acid of 5.0. The patient received NS bolus x 2 liters. Start NS @ 75mL/hr. HR has improved to 120s. Continue Cefepime Insert zhou catheter, she will likely need to be discharged with this zhou catheter and will need f/u with urology. obtain abd/pel ct considering her history of nephrolithiasis, recurrent UTI and possible KELLY (her creatinine level is 1.1, baseline ~0.5-0.9) Hospital Course Hospital Course Hospital Course: The patient's UTI/sepsis/kelly improved with iv fluids and cefepime (03/21-03/23). Urine culture grew E coli >100K sensitive to Rocephin. Rocephin was started on 03/23. Hospital course was complicated by seizure like activity which resolved after starting IV keppra. On morning of transfer the patient had seizure like activity that self resolved within one minute. On day of transfer she was more alert but had mild right sided droop and L sided preferential gaze. She was also moving her LUE much more than her RUE. MRI of the brain was ordered which revealed acute infarcts involving the medial left thalamus, left occipital lobe and posterior left temporal lobe; the MRI also showed worsening moderate ventriculomegaly consistent with hydrocephalus. EEG is pending. She was started on rectal aspirin. She was accepted for transfer at [facility] by Dr. Augustine for a higher level of care. She was provided maintenance fluids throughout the hospital course because she wasn't able to eat. Would consider placing an NGT for nutrition. She was also evaluated by Cardiology for NSTEMI which was thought to be type 2. Troponin I level trended 0.7 ->0.6. Echo revealed LVEF 45% and wall motion abnormalities. They were under the impression that it was type 2 and recommended an outpatient ischemic evaluation for her LV dysfunction and wall motion abnormalities. Vitals on day of discharge: BP 112/75, P 109 - rr 22 - T 97.6 F - spo2 97% on 2L Exam Data for Last 24 hours Vital signs and Labs for Last 24 Hours: Temp Pulse Resp BP Pulse Ox O2 Del Method O2 Flow Rate 97.6 F 109 H 22 112/75 97 Nasal Cannula 2 03/23/23 12:00 03/23/23 12:00 03/23/23 12:00 03/23/23 12:00 03/23/23 12:00 03/23/23 12:00 03/23/23 12:00 Laboratory Results - last 24 hr 03/22/23 16:38: POC Glucose 65 L 03/22/23 17:33: POC Glucose 67 L 03/22/23 19:15: POC Glucose 57 L 03/22/23 20:29: POC Glucose 114 H 03/22/23 23:23: POC Glucose 90 03/23/23 05:27: POC Glucose 93 03/23/23 06:20: WBC 16.1 H D, RBC 3.59 L, Hgb 10.8 L, Hct 34.1 L, MCV 95.1, MCH 30.1, MCHC 31.6 L, RDW 13.7, Plt Count 399, MPV 8.4, Neut % (Auto) 69.3, Lymph % (Auto) 24.8, [place] % (Auto) 4.1, Eos % (Auto) 1.6, Baso % (Auto) 0.2, Neut # (Auto) 11.1 H, Lymph # (Auto) 4.0, [place] # (Auto) 0.7, Eos # (Auto) 0.3, Baso # (Auto) 0.0, Total Co
[2023-03-23 16:00] VITALS: BP 102/71; PULSE 80; PULSE 84; RESP 18; TEMP 36.7; O2SAT 100
--- NOTE | 2023-03-23 16:48 | PC.NURSE ---
ANN-MARIE mills pt. is being d/c and going to [facility] in [facility].
--- NOTE | 2023-03-23 16:58 | PC.NURSE ---
Report called to Meghana Casarez RN at [place]
== END 2023-03-23 17:14 | disposition short-term general hospital (02) | DRG 871 ==
LOC: ER 07:33 → 2ND 08:18
PROVIDERS: Nurse Practitioner Family; Admitting Provider Internal Medicine; Emergency Provider Emergency Medicine; Visit Provider Internal Medicine
DX: A41.9 Sepsis, unspecified organism (principal); I21.4 Non-ST elevation (NSTEMI) myocardial infarction; N17.9 Acute kidney failure, unspecified; I42.9 Cardiomyopathy, unspecified; N12 Tubulo-interstitial nephritis, not specified as acute or chronic; G93.40 Encephalopathy, unspecified; E87.0 Hyperosmolality and hypernatremia; N30.01 Acute cystitis with hematuria; G35 Multiple sclerosis; Z74.01 Bed confinement status; I25.2 Old myocardial infarction; N20.0 Calculus of kidney; G40.909 Epilepsy, unspecified, not intractable, without status epilepticus; B96.20 Unspecified Escherichia coli [E. coli] as the cause of diseases classified elsewhere
CPT/HCPCS: 36415; 70450; 70551; 71045; 74176; 80048; 80053; 80061; 80076; 81001; 82962; 83605; 83690; 84436; 84443; 84484; 85007; 85025; 87040; 87086; 87088; 87186; 93005; 93306; 95816; 95819; 99291; J0131; J0696; J1953